=== PATIENT | female | born 1945 | race Caucasian/White ===

== ENCOUNTER 2017-04-09 17:11 | Observation (INO) | payer OTHER ==
[2017-04-09] MEDS ORDERED: DEMEROL INJ IVP ONE (17:42)
[2017-04-09] MEDS ORDERED: ZOFRAN INJ 4 MG VIAL IVP ONE (17:42)
--- NOTE | 2017-04-09 17:43 | DR.CP ---
HPI - Time Seen Time seen: 17:40 - PCP Primary Care Physician: geoffrey chandler - HPI Comment HPI Comment: PATIENT HAVE PRECORDIAL CHEST PRESSURE THAT STARTED AT 14:00PM TODAY. HISTORY CAD S/P STENT MAY THIS YEAR. - Complaint Chief Complaint Doctor Comments: CHEST PAIN TIMES FEW HOURS. Chief Complaint:: "chest pain since 2 today pt to took two asp and two nitro befor coming to the ER - Reviewed Nurses Notes Review: Yes - Source History Provided: Patient - Mode of Arrival Mode of Arrival: Ambulatory - Timing Onset of Chief Complaint: 04/09/17 Came on: Suddenly - Duration Duration: Constant Duration: Hours - Location Location of Chest Pain: Left, Chest - Context Onset: At rest Cardiac Risk Factors: None PE Risk Factors: None History of: Similar pain in the past, [place], Angina, Angioplasty, Aspirin in last 24 hours Prehospital Care: SL Nitro, ASA - Quality Quality: Heavy - Severity Severity: Moderate - Modifying Factors Worsens: Nothing Impoves: Nothing - Associated Signs and Symptoms Associated Signs and Symptoms: Shortness of Breath PMH - PMH Past Medical History: Yes Past Medical History: Anxiety, CHF, COPD, Coronary Artery Disease, Hypertension , [place] Past Surgical History: Yes Surgical History: Angioplasty/Stents, Cholecystectomy, 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, Hysterectomy , Ortho Surgery - Family History History of Family Medical Conditions: Yes Family Medical History: [place], Hypertension - Social History Does patient currently use any type of tobacco product: Yes Have you used tobacco products in the last 12 months: Yes Type of Tobacco Use: Cigarettes How many years tobacco product used: 20 Does any household member use tobacco: No Alcohol Use: None Do you use any recreational Drugs:: No Lives With: Family Lives Where: Home - infectious screening In the last 2 months have you had wt loss of >10#?: NO Have you had fever, night sweats or hemotysis?: No Have you traveled outside the country in the last 6 months?: No Isolation: Standard ROS - Review of Systems Constitutional: Weakness, Fatigue. negative: Chills, Fever Eyes: No Symptoms Reported. negative: Eye Pain, Discharge ENTM: No Symptoms Reported. negative: Ear Pain, Nose Discharge, Nose Congestion , Throat Pain Respiratoy: No Symptoms Reported, Short of Breath. negative: Productive Cough, Non-Productive Cough, Wheezing, Hemoptysis Cardiovascular: Chest Pain. negative: Edema Gastrointestinal/Abdominal: No Symptoms Reported. negative: Abdominal Pain, Diarrhea, Nausea, Vomiting Genitourinary: No Symptoms Reported. negative: Dysuria, Frequency, Hematuria Neurological: Weakness. negative: Headache, Dizziness Musculoskeletal: No Symptoms Reported Integumentary: No Symptoms Reported Hematologic/Lymphatic: Easy Bleeding, Easy Bruising Endocrine: No Symptoms Reported All Other Systems: Reviewed and Negative PE - Vitals Vitals: Temperature 98 F Pulse Rate [Apical] 57 Pulse Rate 62 Respiratory Rate 18 Blood Pressure [Left Arm] 140/65 Blood Pressure [Right Arm] 149/68 Blood Pressure 217/88 O2 Sat by Pulse Oximetry 100 - General Limitations: No Limitations General Appearance: Alert - Head Head Exam: Normal Inspection - Eyes Eye exam: Normal Appearance - ENT ENT Exam: Normal External Ear Exam - Chest Chest Inspection: Symmetric Chest Wall Rise - Respiratory Respiratory Exam: Normal Lung Sounds Bilat Respiratory Exam: Bilateral Rhonchi, Upper Rhonchi, Lower Rhonchi - Cardiovascular Cardiovascular Exam: Regular Rate, Normal Rhythm Pulse: Normal Edema: Normal - Abdominal Exam Abdominal Exam: Normal Inspection, Normal Bowel Sounds. negative: Tenderness - Extremities Extremities Exam: Normal Inspection - Back Back Exam: Normal Inspection - Neurologic Neurological Exam: Alert, Oriented X3, CN II-XII Intact, Normal Gait, Reflexes Normal. negative: Motor Sensory Deficit - Psychiatric Psychiatric Exam: Normal Affect, Normal Mood - Skin Skin Exam: Normal Color MDM - Additional Information Additional Information Obtained From: Family - Differential Diagnosis Differential Diagnosis: Angina, CHF, Esophageal Reflux/Spasm, Gastritis, Myocardial Infarction, Pericarditis, Pleuritis, Pancreatitis, Pneumonia, Pneumothorax Course - Treatment Treatment: SEE ORDERS. CHEST PAIN RESOLVED WITH IV PAIN MED. - Education/Counseling Education/Counseling: Patient, Family, Education Educated On: Treatment, Diagnosis, Needs for Follow Up ROR - Labs Reviewed Laboratory Results Reviewed?: Yes Result Diagrams: 04/10/17 04:55 04/10/17 04:55 Laboratory: WBC 3.8 X10^3/uL (3.6-10.0) 04/09/17 17:48 RBC 3.69 X10^6/uL (3.5-5.4) 04/09/17 17:48 Hgb 13.2 g/dL (12.0-16.0) 04/09/17 17:48 Hct 38.1 % (36.0-47.0) 04/09/17 17:48 MCV 103.2 fL (80.0-100.0) H 04/09/17 17:48 MCH 35.7 pg (27.0-34.0) H 04/09/17 17:48 MCHC 34.6 g/dL (33.0-35.0) 04/09/17 17:48 RDW 16.3 % (11.6-16.5) 04/09/17 17:48 Plt Count 145 X10^3/uL (150.0-450.0) L 04/09/17 17:48 MPV 10.5 fL (7.4-11.0) 04/09/17 17:48 Neut % 49.5 % (42.0-75.0) 04/09/17 17:48 Lymph % 39.5 % (21.0-51.0) 04/09/17 17:48 [place] % 6.3 % (0.0-13.0) 04/09/17 17:48 Eos % 3.9 % (0.9-2.9) H 04/09/17 17:48 Baso % 0.8 % (0.2-1.0) 04/09/17 17:48 Neut # 1.9 x10^3/uL (2.2-4.8) L 04/09/17 17:48 Lymph # 1.5 X10^3/uL (1.3-2.9) 04/09/17 17:48 [place] # 0.2 x10^3/uL (0.3-0.8) L 04/09/17 17:48 Eos # 0.1 x10^3/uL (0.0-0.2) 04/09/17 17:48 Baso # 0.0 X10^3/uL (0.0-0.1) 04/09/17 17:48 Absolute Nucleated RBC 0.0 /100WBC 04/09/17 17:48 INR Target Range - 04/09/17 17:48 INR 1.00 (0.8-1.3) 04/09/17 17:48 PTT 29.7 SECONDS (22.9-36.5) 04/09/17 17:48 PTT Comment - 04/09/17 17:48 Sodium 141 mmol/L (136-145) 04/09/17 17:48 Corrected Sodium TNP 04/09/17 17:48 Potassium 4.0 mmol/L (3.5-5.1) 04/09/17 17:48 Chloride 104 mmol/L (98-107) 04/09/17 17:48 Carbon Dioxide 30.2 mmol/L (21-32) 04/09/17 17:48 BUN 9 mg/dL (7-18) 04/09/17 17:48 Creatinine 1.44 mg/dL (0.55-1.02) H 04/09/17 17:48 Est GFR (MDRD) Af Amer 46 (>60) L 04/09/17 17:48 Est GFR (MDRD) Non-Af 38 (>60) L 04/09/17 17:48 Glucose 92 mg/dL (65-99) 04/09/17 17:48 Calcium 9.0 mg/dL (8.5-10.1) 04/09/17 17:48 Corrected Calcium 9.6 mg/dL (8.5-10.1) 04/09/17 17:48 Total Bilirubin 0.40 mg/dL (0.2-1.0) 04/09/17 17:48 AST 16 Units/L (15-37) 04/09/17 17:48 ALT 13 Units/L (12-78) 04/09/17 17:48 Alkaline Phosphatase 107 Units/L (46-116) 04/09/17 17:48 Creatine Kinase 36 Units/L (26-192) 04/09/17 17:48 CK-MB (CK-2) < 1.0 ng/mL (0-4.0) 04/09/17 17:48 CK/CKMB % Calc 2.8 % (<4) 04/09/17 17:48 Troponin I < 0.02 ng/mL (0-1.5) 04/09/17 17:48 B-Natriuretic Peptide 246 pg/mL (0-79) H 04/09/17 17:48 Total Protein 6.5 g/dL (6.4-8.2) 04/09/17 17:48 Albumin 3.2 g/dL (3.4-5.0) L 04/09/17 17:48 Globulin 3.3 g/dL (2.5-4.5) 04/09/17 17:48 Albumin/Globulin Ratio 1.0 Ratio (1.1-2.1) L 04/09/17 17:48 Specimen Type Clean catch urine 04/09/17 20: Urine Color Yellow (YELLOW) 04/09/17 20:23 Urine Appearance Clear (CLEAR) 04/09/17 20: Urine pH 6.0 (5.0 - 8.0) 04/09/17 20:23 Ur Specific [place] 1.010 (1.000-1.030) 04/09/17 20:23 Urine Protein Negative (NEGATIVE) 04/09/17 20: Urine Glucose (UA) Negative (NEGATIVE) 04/09/17 20: Urine Ketones Negative (NEGATIVE) 04/09/17 20: Urine Occult Blood Negative (NEGATIVE) 04/09/17 20: Urine Nitrite Negative (NEGATIVE) 04/09/17 20: Urine Bilirubin Negative (NEGATIVE) 04/09/17 20: Urine Urobilinogen Normal (NORMAL) 04/09/17 20: Ur Leukocyte Esterase 3+ (NEGATIVE) 04/09/17 20:23 Urine RBC 0-3 /HPF (NEGATIVE) 04/09/17 20:23 Urine WBC 8-12 /HPF (NEGATIVE) 04/09/17 20:23 Ur Squamous Epith Cells Few /HPF (NEGATIVE) 04/09/17 20: Urine Bacteria Trace /HPF (NEGATIVE) 04/09/17 20:23 Ur Culture Indicated? Yes/culture set up 04/09/17 20:23 - XRAY XRAY Interpreted by: Radiologist XRAY Findings: REPORT DISCUSS WITH PATIENT AND FAMILY. - EKG Rhythm: NSR (EKG NOTED.) - Diagnosis Discharge Problem: Chest pain Qualifiers: Chest pain type: precordial pain Qualified Code(s): R07.2 - Precordial pain Hypertension Qualifiers: Hypertension type: essential hypertension Qualified Code(s): I10 - Essential ( primary) hypertension - Discharge Plan Disposition: 09 ADMITTED INPATIENT Condition: Stable - Follow ups/Referrals - Instructions
[2017-04-09] MEDS ORDERED: ZOFRAN INJ 4 MG VIAL ONE (17:45)
[2017-04-09] MEDS ORDERED: DEMEROL INJ ONE (17:45)
[2017-04-09 18:08] LABS: BASOPHILS % (AUTO) 0.8 % (0.2-1.0); EOSINOPHILS # (AUTO) 0.1 x10^3/uL (0.0-0.2); EOSINOPHILS % (AUTO) 3.9 % (0.9-2.9); HEMATOCRIT 38.1 % (36.0-47.0); HEMOGLOBIN 13.2 g/dL (12.0-16.0); LYMPHOCYTES # (AUTO) 1.5 X10^3/uL (1.3-2.9); LYMPHOCYTES % (AUTO) 39.5 % (21.0-51.0); MEAN CORPUSCULAR HEMOGLOBIN 35.7 pg (27.0-34.0); MEAN CORPUSCULAR HGB CONC 34.6 g/dL (33.0-35.0); MEAN CORPUSCULAR VOLUME 103.2 fL (80.0-100.0); MEAN PLATELET VOLUME 10.5 fL (7.4-11.0); MONOCYTES # (AUTO) 0.2 x10^3/uL (0.3-0.8); MONOCYTES % (AUTO) 6.3 % (0.0-13.0); NEUTROPHILS # (AUTO) 1.9 x10^3/uL (2.2-4.8); NEUTROPHILS % (AUTO) 49.5 % (42.0-75.0); PLATELET COUNT 145 X10^3/uL (150.0-450.0); RED BLOOD COUNT 3.69 X10^6/uL (3.5-5.4); RED CELL DISTRIBUTION WIDTH 16.3 % (11.6-16.5); WHITE BLOOD COUNT 3.8 X10^3/uL (3.6-10.0)
[2017-04-09 18:18] LABS: BLOOD UREA NITROGEN 9 mg/dL (7-18); CARBON DIOXIDE 30.2 mmol/L (21-32); CHLORIDE 104 mmol/L (98-107); CREATININE 1.44 mg/dL (0.55-1.02); SODIUM 141 mmol/L (136-145); TROPONIN I < 0.02 ng/mL (0-1.5); eGFR BLACK RACES 46 (>60); eGFR NON BLACK RACES 38 (>60)
--- NOTE | 2017-04-09 18:20 | RAD ---
Chest, one view Indication: Chest pain Comparison: 03/08/2016 Findings: The heart size is normal. The lungs are clear without focal infiltrate or large effusion. Impression: No acute chest process or significant change from prior. Reported By:
[2017-04-09 18:22] LABS: ALANINE AMINOTRANSFERASE 13 Units/L (12-78); ALBUMIN 3.2 g/dL (3.4-5.0); ALKALINE PHOSPHATASE 107 Units/L (46-116); ASPARTATE AMINO TRANSFERASE 16 Units/L (15-37); CKMB % 2.8 % (<4); COR CA(FOR HYPOALB) 9.6 mg/dL (8.5-10.1); CREATINE KINASE 36 Units/L (26-192); CREATINE KINASE MB < 1.0 ng/mL (0-4.0); TOTAL PROTEIN 6.5 g/dL (6.4-8.2)
[2017-04-09 18:24] LABS: B-TYPE NATRIURETIC PEPTIDE 246 pg/mL (0-79)
[2017-04-09] MEDS ORDERED: NITROSTAT SL PRN ×2 (18:48→21:34)
[2017-04-09] MEDS: NS 1000 ML 1,000 ML IV SCH (19:21)
[2017-04-09] MEDS: PEPCID 20 MG IV PREMIX* 20 MG/50 ML BAG IV SCH ×2 (19:22→20:00)
[2017-04-09 20:31] LABS: BILIRUBIN,URINE NEGATIVE (NEGATIVE); BLOOD/HEMOGLOBIN,URINE NEGATIVE (NEGATIVE); GLUCOSE, URINE NEGATIVE (NEGATIVE); KETONES,URINE NEGATIVE (NEGATIVE); LEUKOCYTE ESTERASE ,URINE 3+ (NEGATIVE); NITRITES,URINE NEGATIVE (NEGATIVE); PROTEIN,URINE NEGATIVE (NEGATIVE); UROBILINOGEN,URINE NORMAL (NORMAL)
[2017-04-09 20:39] LABS: APPEARANCE,URINE CLEAR (CLEAR); BACTERIA,URINE TRACE /HPF (NEGATIVE); COLOR,URINE YELLOW (YELLOW); RBC,URINE 0-3 /HPF (NEGATIVE); SQUAMOUS EPITHELIAL CELL,UR FEW /HPF (NEGATIVE)
[2017-04-09] MEDS: NICOTINE PATCH TD SCH (21:01)
[2017-04-09 21:31] VITALS: BMI 23.9
[2017-04-09] MEDS ORDERED: ALPRAZOLAM 0.5 MG PO PRN (21:34)
[2017-04-09] MEDS ORDERED: XANAX PO PRN (21:44)
[2017-04-09] MEDS ORDERED: ZESTRIL TAB 20 MG ONE (22:02)
[2017-04-09] MEDS: LINZESS PO SCH (22:04)
[2017-04-09] MEDS: COREG TAB 12.5 MG PO SCH (22:04)
[2017-04-09] MEDS: ZESTRIL TAB 20 MG PO SCH (22:04)
[2017-04-09] MEDS: TYLENOL 325 MG TAB PO PRN (23:37)
[2017-04-09 23:55] LABS: CKMB % 2.6 % (<4); CREATINE KINASE 39 Units/L (26-192); CREATINE KINASE MB < 1.0 ng/mL (0-4.0); TROPONIN I < 0.02 ng/mL (0-1.5)
[2017-04-10 05:23] LABS: BASOPHILS % (AUTO) 1.1 % (0.2-1.0); EOSINOPHILS # (AUTO) 0.1 x10^3/uL (0.0-0.2); EOSINOPHILS % (AUTO) 3.5 % (0.9-2.9); HEMATOCRIT 35.2 % (36.0-47.0); LYMPHOCYTES # (AUTO) 1.5 X10^3/uL (1.3-2.9); LYMPHOCYTES % (AUTO) 40.9 % (21.0-51.0); MEAN CORPUSCULAR HEMOGLOBIN 35.4 pg (27.0-34.0); MEAN CORPUSCULAR HGB CONC 34.1 g/dL (33.0-35.0); MEAN CORPUSCULAR VOLUME 103.9 fL (80.0-100.0); MEAN PLATELET VOLUME 10.5 fL (7.4-11.0); MONOCYTES # (AUTO) 0.3 x10^3/uL (0.3-0.8); MONOCYTES % (AUTO) 7.6 % (0.0-13.0); NEUTROPHILS # (AUTO) 1.7 x10^3/uL (2.2-4.8); NEUTROPHILS % (AUTO) 46.9 % (42.0-75.0); PLATELET COUNT 121 X10^3/uL (150.0-450.0); RED BLOOD COUNT 3.39 X10^6/uL (3.5-5.4); RED CELL DISTRIBUTION WIDTH 16.2 % (11.6-16.5); WHITE BLOOD COUNT 3.6 X10^3/uL (3.6-10.0)
[2017-04-10 05:46] LABS: CKMB % 2.9 % (<4); CREATINE KINASE 35 Units/L (26-192); CREATINE KINASE MB < 1.0 ng/mL (0-4.0); TROPONIN I 0.03 ng/mL (0-1.5)
[2017-04-10] MEDS: TYLENOL 325 MG TAB PO PRN (05:46)
[2017-04-10 05:50] LABS: ALANINE AMINOTRANSFERASE 10 Units/L (12-78); ALBUMIN 2.8 g/dL (3.4-5.0); ALKALINE PHOSPHATASE 96 Units/L (46-116); ASPARTATE AMINO TRANSFERASE 16 Units/L (15-37); BLOOD UREA NITROGEN 11 mg/dL (7-18); CARBON DIOXIDE 28.5 mmol/L (21-32); CHLORIDE 107 mmol/L (98-107); CHOL/HDL RATIO 4.7 (0.0-5.0); CHOLESTEROL 194 mg/dL (0-200); CREATININE 1.41 mg/dL (0.55-1.02); HDL CHOLESTEROL 41 mg/dL (40-60); MAGNESIUM 1.9 mg/dL (1.7-2.9); SODIUM 140 mmol/L (136-145); TRIGLYCERIDES 115 mg/dL (0-150); eGFR BLACK RACES 47 (>60); eGFR NON BLACK RACES 39 (>60)
[2017-04-10] MEDS ORDERED: LEXAPRO ONE (07:54)
[2017-04-10] MEDS ORDERED: ZESTRIL TAB 20 MG ONE (07:54)
[2017-04-10] MEDS: NS 1000 ML 1,000 ML IV SCH (08:32)
[2017-04-10] MEDS: LINZESS PO SCH (08:39)
[2017-04-10] MEDS: NICOTINE PATCH TD SCH (08:39)
[2017-04-10] MEDS: PEPCID 20 MG IV PREMIX* 20 MG/50 ML BAG IV SCH (08:39)
[2017-04-10] MEDS: ZESTRIL TAB 20 MG PO SCH (08:39)
[2017-04-10] MEDS ORDERED: NORCO 5/325 MG TAB PO ONE (08:48)
[2017-04-10] MEDS: COREG TAB 12.5 MG PO SCH (08:49)
[2017-04-10] MEDS ORDERED: PATIENT'S HOME MEDICATION (Escitalopram Oxalate [Escitalopram Oxalate] 20 MG) PO SCH (09:00)
[2017-04-10] MEDS ORDERED: LEXAPRO PO SCH (09:00)
[2017-04-10] MEDS ORDERED: ASPIRIN EC 81 MG PO SCH (09:00)
[2017-04-10] MEDS ORDERED: PROTONIX INJ 40 MG VIAL IVP SCH (10:00)
[2017-04-10 12:17] LABS: CKMB % 3.3 % (<4); CREATINE KINASE 30 Units/L (26-192); CREATINE KINASE MB < 1.0 ng/mL (0-4.0); TROPONIN I 0.03 ng/mL (0-1.5)
[2017-04-10] MEDS ORDERED: LEVSIN/MAALOX/LIDOC VISC PO ONE (12:31)
[2017-04-10 13:03] VITALS: BP 152/79
--- NOTE | 2017-04-10 13:31 | DR.H&P ---
H&P - History & Physical for Day of: H&P Date: 04/09/17 - Chief Complaint Chief Complaint: CHEST PAIN - Allergies Allergies/Adverse Reactions: Allergies Allergy/AdvReac Type Severity Reaction Status Date / Time codeine Allergy Verified 04/09/17 18:37 diphenhydramine Allergy Verified 04/09/17 18:37 [From Benadryl] ibuprofen Allergy Verified 04/09/17 18:37 morphine Allergy Verified 04/09/17 18:37 Penicillins Allergy Verified 04/09/17 18:37 promethazine [From Phenergan] Allergy Verified 04/09/17 18:37 - History of Present Illness History of Present Illness: patient is a 71-year-old white female who was admitted from the emergency room after presenting with complaints of chest pain. Patient stated chest pain started while at rest. Patient states she took nitroglycerin sublingual chest. Patient has a history of coronary artery disease patient believes last heart catheter was in 2013 patient states she has 5 stents. Patient also has a history of carotid artery disease with a history of endarterectomy approximately a year and a half ago. Patient has a history of COPD and is currently a smoker as well as hypertension. 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, Hysterectomy , Ortho Surgery - Family History Family Medical History: [place], Hypertension - Social History Does patient currently use any type of tobacco product: Yes Have you used tobacco products in the last 12 months: Yes Type of Tobacco Use: Cigarettes How many years tobacco product used: 20 Does any household member use tobacco: No Alcohol Use: None Drug Use: None - Medications Home Medications: Alprazolam [Xanax 1 mg] 0.5 mg PO BID PRN 04/09/17 [History Confirmed 04/09/17] Escitalopram Oxalate 20 mg PO DAILY 04/09/17 [History Confirmed 04/09/17] Levothyroxine Sodium 75 mcg PO DAILY 04/09/17 [History Confirmed 04/09/17] Linaclotide [Linzess] 145 mg PO DAILY 04/09/17 [History Confirmed 04/09/17] Nitroglycerin Sublingual [NITROSTAT SUBLING TAB 0.4 MG *] 0.4 mg SL PRN PRN [History Confirmed 04/09/17] Ranitidine HCl [Heartburn Relief] 150 mg PO HS 04/09/17 [History Confirmed 04/09] - Review of Systems Constitutional: Weakness Eyes: No Symptoms Reported ENT: No Symptoms Reported Respiratory: Shortness of Breath, SOB with Excertion Cardiovascular: Chest Pain Gastrointestinal: Nausea Genitourinary: No Symptoms Reported Musculoskeletal: Back Pain Skin: No Symptoms Reported Neurological: Weakness - Physical Exam Vital Signs: Temperature 97.9 F Pulse Rate [Apical] 54 Pulse Rate 62 Respiratory Rate 18 Blood Pressure [Left Arm] 152/79 Blood Pressure [Right Arm] 131/62 Blood Pressure 217/88 O2 Sat by Pulse Oximetry 96 Oriented: Normal Eyes: Normal Ear: Normal Nose: Normal Throat: Normal Respiratory: RLL Diminished, LLL Diminished Cardiovascular: Normal : Normal Auscultation: Bowel Sounds: Normal Palpation: Normal Tenderness: Normal Skin: Normal Musculoskeletal: Back:Lumbar Psychiatric: Anxiety Affect: Anxious Speech Pattern: Clear, Appropriate - Assessment/Plan (1) Chest pain Qualifiers: Chest pain type: precordial pain Qualified Code(s): R07.2 - Precordial pain Status: Acute Plan: ADMIT, SERIAL CE, SERIAL EKG'S CXR ON ADMISSION. BP AND LIPID CONTROL, SUPPLEMENTAL O2. CONTINOUS CARDIAC MONITORING. RESUME HOME MEDICATION (2) Hypertension Qualifiers: Hypertension type: essential hypertension Qualified Code(s): I10 - Essential (primary) hypertension Status: Acute (3) Dizziness Status: Acute (4) CAD (coronary artery disease) Status: Chronic (5) Esophageal reflux Status: Chronic (6) Essential hypertension, benign Status: Chronic (7) TATI (generalized anxiety disorder) Status: Chronic
[2017-04-10] MEDS ORDERED: SYNTHROID 75 mcg TAB PO SCH (16:30)
[2017-04-10] MEDS ORDERED: ZANTAC PO SCH (21:00)
== END 2017-04-10 15:25 | disposition short-term general hospital (02) ==
LOC: ER 17:11 → MED/SURG 19:05
PROVIDERS: ADMIT Obstetrics & Gynecology Obstetrics; ATTEND Internal Medicine
DX: R07.2 Precordial pain (principal); J44.9 Chronic obstructive pulmonary disease, unspecified; I25.10 Atherosclerotic heart disease of native coronary artery without angina pectoris; I10 Essential (primary) hypertension; F41.8 Other specified anxiety disorders; R06.02 Shortness of breath; R42 Dizziness and giddiness; K21.9 Gastro-esophageal reflux disease without esophagitis; R94.31 Abnormal electrocardiogram [ECG] [EKG]; Z79.899 Other long term (current) drug therapy
CPT/HCPCS: 36415; 71010; 80053; 80061; 81001; 82550; 82553; 83735; 83880; 84484; 85025; 85378; 85610; 85730; 87086; 93005; 93010; 94760; 96365; 96374; 96375; 99284; A4222; C9113; S0028; G0378; J2175; J2405

== ENCOUNTER 2019-12-24 14:32 | Inpatient (IN) ==
[2019-12-24 15:25] LABS: BILIRUBIN,URINE NEGATIVE (NEGATIVE); BLOOD/HEMOGLOBIN,URINE 4+ (NEGATIVE); GLUCOSE, URINE NEGATIVE (NEGATIVE); KETONES,URINE NEGATIVE (NEGATIVE); LEUKOCYTE ESTERASE ,URINE 3+ (NEGATIVE); NITRITES,URINE NEGATIVE (NEGATIVE); PROTEIN,URINE 3+ (NEGATIVE); UROBILINOGEN,URINE 1+ (NORMAL)
[2019-12-24 15:39] LABS: APPEARANCE,URINE SLIGHTLY HAZY (CLEAR); COLOR,URINE YELLOW (YELLOW)
[2019-12-24 15:40] LABS: BACTERIA,URINE 1+ /HPF (NEGATIVE); SQUAMOUS EPITHELIAL CELL,UR NEGATIVE /HPF (NEGATIVE)
--- NOTE | 2019-12-24 15:41 | DR.DIZZY ---
HPI Time seen Time Seen by Provider: 12/24/19 15:00 Complaint Chief Complaint Doctor Comments: complaint of having fever and uti. Has been in bed for 2 days with reported stool in bed. Source History Provided: Patient and EMS Mode of Arrival Mode of Arrival: Stretcher Timing Onset of Chief Complaint: 12/22/19 Onset of Symptoms Start Date: 12/22/19 Duration Duration: Constant How lon Duration: Days Location of Weakness Weakness Location: Generalized Context Onset: At rest History of: None Stroke Symptoms: None Severity Severity: Bedridden Modifying factors Worsens: Nothing Associated signs and symptoms Associated Signs and Symptoms: Weak, Fever and Nausea PMH PMH Past Medical History: Anxiety, CHF, COPD, Coronary Artery Disease, Hypertension and [place] Past Surgical History: Yes Surgical History: Angioplasty/Stents, Cholecystectomy, 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, Hysterectomy and Ortho Surgery Family History Family Medical History: [place] and Hypertension Social History Do you use any recreational Drugs:: No ROS Review of Systems Constitutional: Fever Eyes: No Symptoms Reported and Eye Pain ENTM: No Symptoms Reported Respiratoy: No Symptoms Reported Cardiovascular: No Symptoms Reported Gastrointestinal/Abdominal: Vomiting Genitourinary: Dysuria Neurological: No Symptoms Reported Musculoskeletal: No Symptoms Reported Integumentary: No Symptoms Reported Hematologic/Lymphatic: No Symptoms Reported Endocrine: No Symptoms Reported Psychiatric: No Symptoms Reported All Other Systems: Reviewed and Negative PE Vital Signs Vitals: Temperature 98.8 F Pulse Rate 72 Respiratory Rate 16 Blood Pressure [Left Arm] 152/79 Blood Pressure [Right Arm] 131/62 Blood Pressure 94/55 O2 Sat by Pulse Oximetry 98 General Limitations: No Limitations General Appearance: Alert and In No Apparent Distress Head Head Exam: Normal Inspection, Atraumatic and Normocephalic Eyes Eye exam: Normal Appearance and EOMI ENT ENT Exam: Mucous Membranes Dry Neck Neck Exam: Normal Inspection, Full ROM and Trachea Midline Chest Chest Inspection: Normal Inspection Respiratory Respiratory Exam: Normal Lung Sounds Bilat; negative Respiratory Distress Respiratory Exam: Bilateral: Clear to Auscultation Cardiovascular Cardiovascular Exam: Regular Rate Abdominal Exam Abdominal Exam: Normal Inspection, Normal Bowel Sounds and Soft; negative Distention and Guarding Rectal Rectal Exam: Deferred Extremeties Extremities Exam: Normal Inspection and Full ROM Back Back Exam: Normal Inspection Neurologic Neurological Exam: Alert, Oriented X3 and CN II-XII Intact Patient Oriented To: Person, Place and Time Psychiatric Psychiatric Exam: Depressed Skin Skin Exam: Normal Color COURSE Consultation Called: 16:31 Call Returned: 16:39 Consultation Comments: case discussed with DR. Genao admit Urosepsis ROR Labs Reviewed Result Diagrams: 12/24/19 15:40 12/24/19 15:40 Laboratory: WBC 11.5 X10^3/uL (3.6-10.0) H 12/24/19 15:40 RBC 3.37 X10^6/uL (3.5-5.4) L 12/24/19 15:40 Hgb 13.6 g/dL (12.0-16.0) 12/24/19 15:40 Hct 39.1 % (36.0-47.0) 12/24/19 15:40 MCV 116.3 fL (80.0-100.0) H 12/24/19 15:40 MCH 40.4 pg (27.0-34.0) H 12/24/19 15:40 MCHC 34.8 g/dL (33.0-35.0) 12/24/19 15:40 RDW 14.3 % (11.6-16.5) 12/24/19 15:40 Plt Count 107 X10^3/uL (150.0-450.0) L 12/24/19 15:40 Plt Count Comment Decreased (ADEQUATE) A 12/24/19 15:40 MPV 11.1 fL (7.4-11.0) H 12/24/19 15:40 Neut % (Auto) 91.8 % (42.0-75.0) H 12/24/19 15:40 Lymph % (Auto) 5.0 % (21.0-51.0) L 12/24/19 15:40 [place] % (Auto) 3.0 % (0.0-13.0) 12/24/19 15:40 Eos % (Auto) 0.0 % (0.9-2.9) L 12/24/19 15:40 Baso % (Auto) 0.2 % (0.2-1.0) 12/24/19 15:40 Neut # (Auto) 10.6 x10^3/uL (2.2-4.8) H 12/24/19 15:40 Lymph # (Auto) 0.6 X10^3/uL (1.3-2.9) L 12/24/19 15:40 [place] # (Auto) 0.3 x10^3/uL (0.3-0.8) 12/24/19 15:40 Eos # (Auto) 0.0 x10^3/uL (0.0-0.2) 12/24/19 15:40 Baso # (Auto) 0.0 X10^3/uL (0.0-0.1) 12/24/19 15:40 Absolute Nucleated RBC 0.0 /100WBC 12/24/19 15:40 Total Counted 100 12/24/19 15:40 Neutrophils % (Manual) 82 % (39-76) H 12/24/19 15:40 Band Neutrophils % 6 % (0-10) 12/24/19 15:40 Lymphocytes % (Manual) 8 % (13-43) L 12/24/19 15:40 Monocytes % (Manual) 4 % (4-9) 12/24/19 15:40 Plt Morphology Comment Normal (NORMAL) 12/24/19 15:40 RBC Morphology Abnormal (NORMAL) A 12/24/19 15:40 Macrocytosis 3+ A 12/24/19 15:40 PT 13.0 SECONDS (11.8-14.3) 12/24/19 15:40 INR Target Range - 12/24/19 15:40 INR 1.01 (0.8-1.3) 12/24/19 15:40 Sodium 133 mmol/L (136-145) L 12/24/19 15:40 Corrected Sodium TNP 12/24/19 15:40 Potassium 2.7 mmol/L (3.5-5.1) L* 12/24/19 15:40 Chloride 92 mmol/L (98-107) L 12/24/19 15:40 Carbon Dioxide 29.7 mmol/L (21-32) 12/24/19 15:40 BUN 28 mg/dL (7-18) H 12/24/19 15:40 Creatinine 2.46 mg/dL (0.55-1.02) H 12/24/19 15:40 Est GFR (MDRD) Af Amer 25 (>60) L 12/24/19 15:40 Est GFR (MDRD) Non-Af 20 (>60) L 12/24/19 15:40 Glucose 100 mg/dL (65-99) H 12/24/19 15:40 Lactic Acid 2.9 mmol/L (0.4-2.0) H 12/24/19 15:40 Calcium 9.9 mg/dL (8.5-10.1) 12/24/19 15:40 Corrected Calcium TNP 12/24/19 15:40 Total Bilirubin 1.40 mg/dL (0.2-1.0) H 12/24/19 15:40 AST 19 Units/L (15-37) 12/24/19 15:40 ALT 12 Units/L (12-78) 12/24/19 15:40 Alkaline Phosphatase 112 Units/L (46-116) 12/24/19 15:40 Total Protein 7.1 g/dL (6.4-8.2) 12/24/19 15:40 Albumin 3.4 g/dL (3.4-5.0) 12/24/19 15:40 Globulin 3.7 g/dL (2.5-4.5) 12/24/19 15:40 Albumin/Globulin Ratio 0.9 Ratio (1.1-2.1) L 12/24/19 15:40 Lipase 46 Units/L (73-393) L 12/24/19 15:40 Specimen Type Catherized urine 12/24/19 15:10 Urine Color Yellow (YELLOW) 12/24/19 15:10 Urine Appearance Slightly hazy (CLEAR) 12/24/19 15:10 Urine pH 5.0 (5.0 - 8.0) 12/24/19 15:10 Ur Specific [place] 1.015 (1.000-1.030) 12/24/19 15:10 Urine Protein 3+ (NEGATIVE) 12/24/19 15:10 Urine Glucose (UA) Negative (NEGATIVE) 12/24/19 15:10 Urine Ketones Negative (NEGATIVE) 12/24/19 15:10 Urine Occult Blood 4+ (NEGATIVE) 12/24/19 15:10 Urine Nitrite Negative (NEGATIVE) 12/24/19 15:10 Urine Bilirubin Negative (NEGATIVE) 12/24/19 15:10 Urine Urobilinogen 1+ (NORMAL) 12/24/19 15:10 Ur Leukocyte Esterase 3+ (NEGATIVE) 12/24/19 15:10 Urine RBC 5-10 /HPF (0-3) A 12/24/19 15:10 Urine WBC Tntc /HPF (0-5) A 12/24/19 15:10 Ur Squamous Epith Cells Negative /HPF (NEGATIVE) 12/24/19 15:10 Urine Bacteria 1+ /HPF (NEGATIVE) 12/24/19 15:10 Ur Culture Indicated? Yes/culture set up 12/24/19 15:10 Opioid Opioid Risk Tool Age (Savage box if 16-45): No History of Preadolescent Sexual Abuse: No Total: 0 Total Score Risk Category: Low Risk Copyright: Davie CASTELLANO predicting aberrant behaviors
[2019-12-24] MEDS ORDERED: NS 1000 ML 1,000 ML IV SCH (16:00)
[2019-12-24 16:03] LABS: BLOOD UREA NITROGEN 28 mg/dL (7-18); CALCIUM 9.9 mg/dL (8.5-10.1); CARBON DIOXIDE 29.7 mmol/L (21-32); CHLORIDE 92 mmol/L (98-107); CREATININE 2.46 mg/dL (0.55-1.02); SODIUM 133 mmol/L (136-145); eGFR NON BLACK RACES 20 (>60)
[2019-12-24 16:07] LABS: ALANINE AMINOTRANSFERASE 12 Units/L (12-78); ALBUMIN 3.4 g/dL (3.4-5.0); ALKALINE PHOSPHATASE 112 Units/L (46-116); ASPARTATE AMINO TRANSFERASE 19 Units/L (15-37); LIPASE 46 Units/L (73-393); TOTAL PROTEIN 7.1 g/dL (6.4-8.2)
[2019-12-24] MEDS ORDERED: NS + KCL 20 MEQ/L 1,000 ML IV ONE ×2 (16:10→16:23)
[2019-12-24 16:11] LABS: BASOPHILS % (AUTO) 0.2 % (0.2-1.0); HEMATOCRIT 39.1 % (36.0-47.0); HEMOGLOBIN 13.6 g/dL (12.0-16.0); LACTIC ACID 2.9 mmol/L (0.4-2.0); LYMPHOCYTES # (AUTO) 0.6 X10^3/uL (1.3-2.9); MEAN CORPUSCULAR HEMOGLOBIN 40.4 pg (27.0-34.0); MEAN CORPUSCULAR HGB CONC 34.8 g/dL (33.0-35.0); MEAN CORPUSCULAR VOLUME 116.3 fL (80.0-100.0); MEAN PLATELET VOLUME 11.1 fL (7.4-11.0); MONOCYTES # (AUTO) 0.3 x10^3/uL (0.3-0.8); NEUTROPHILS # (AUTO) 10.6 x10^3/uL (2.2-4.8); NEUTROPHILS % (AUTO) 91.8 % (42.0-75.0); PLATELET COUNT 107 X10^3/uL (150.0-450.0); RED BLOOD COUNT 3.37 X10^6/uL (3.5-5.4); RED CELL DISTRIBUTION WIDTH 14.3 % (11.6-16.5); WHITE BLOOD COUNT 11.5 X10^3/uL (3.6-10.0)
[2019-12-24 16:25] LABS: BAND NEUTROPHILS % 6 % (0-10); PLATELET MORPHOLOGY COMMENT NORMAL (NORMAL)
--- NOTE | 2019-12-24 16:26 | RAD ---
HISTORYSEPSISSTUDYCHEST, 1 VIEWCOMPARISONFINDINGSThe trachea is midline. The cardiac silhouette is unremarkable . The lungs are clear without focal infiltrate or effusion. The bony thorax is unremarkable.IMPRESSIONNo acute cardiopulmonary disease.Electronically signed by: ZAIDA BERTRAND (Dec 24, 2019 16:24:27)
[2019-12-24] MEDS ORDERED: LEVAQUIN PREMIX IV 500 MG 500 MG/100 ML BAG IV ONE (16:37)
[2019-12-24] MEDS: LEVAQUIN PREMIX IV 500 MG 500 MG/100 ML BAG IV SCH (16:59)
[2019-12-24] MEDS ORDERED: K-RIDER 10 MEQ/NS 100 ML 10 MEQ/100 ML BAG IV PRN (19:56)
[2019-12-24] MEDS ORDERED: POTASSIUM CHLORIDE LIQ 20 MEQ UDC PO PRN (19:56)
[2019-12-24] MEDS ORDERED: K-DUR TAB 20 MEQ PO PRN (19:56)
[2019-12-24] MEDS ORDERED: KLOR-CON PO PRN (19:56)
[2019-12-24] MEDS ORDERED: POTASSIUM CHL 60 MEQ/NS 0.45% 500 ML IV PRN (19:56)
[2019-12-24] MEDS ORDERED: POTASSIUM CHL 40 MEQ/NS 0.45% 500 ML IV PRN (19:56)
[2019-12-24] MEDS ORDERED: MICRO K EXTEN CAP 10 MEQ PO PRN (19:56)
[2019-12-24] MEDS ORDERED: MAGNESIUM SULFATE 1 GRAM/100 mL PREMIX 1 GM/100 ML BAG IV PRN (20:12)
[2019-12-24 21:04] VITALS: BMI 22.1
[2019-12-24] MEDS ORDERED: NITROSTAT SL PRN (21:11)
[2019-12-24] MEDS ORDERED: MAGNESIUM SULFATE 1 GRAM/100 mL PREMIX 1 G/100 ML BAG IV ONE ×2 (22:38→22:54)
[2019-12-24] MEDS: NS 1000 ML 1,000 ML IV SCH (23:24)
[2019-12-25] MEDS: XANAX PO PRN (01:00)
[2019-12-25] MEDS: NS 1000 ML 1,000 ML IV SCH ×4 (05:56→18:01)
[2019-12-25] MEDS: SYNTHROID 75 mcg TAB PO SCH (05:56)
[2019-12-25 06:21] LABS: BASOPHILS % (AUTO) 0.4 % (0.2-1.0); HEMATOCRIT 32.3 % (36.0-47.0); HEMOGLOBIN 11.5 g/dL (12.0-16.0); LYMPHOCYTES # (AUTO) 0.5 X10^3/uL (1.3-2.9); LYMPHOCYTES % (AUTO) 4.8 % (21.0-51.0); MEAN CORPUSCULAR HGB CONC 35.7 g/dL (33.0-35.0); MEAN CORPUSCULAR VOLUME 114.8 fL (80.0-100.0); MEAN PLATELET VOLUME 10.8 fL (7.4-11.0); MONOCYTES # (AUTO) 0.4 x10^3/uL (0.3-0.8); NEUTROPHILS # (AUTO) 9.5 x10^3/uL (2.2-4.8); NEUTROPHILS % (AUTO) 90.8 % (42.0-75.0); PLATELET COUNT 69 X10^3/uL (150.0-450.0); RED BLOOD COUNT 2.81 X10^6/uL (3.5-5.4); WHITE BLOOD COUNT 10.4 X10^3/uL (3.6-10.0)
[2019-12-25 06:40] LABS: PLATELET MORPHOLOGY COMMENT NORMAL (NORMAL)
[2019-12-25 06:41] LABS: BAND NEUTROPHILS % 2 % (0-10)
[2019-12-25 06:45] LABS: ALBUMIN 2.5 g/dL (3.4-5.0); CALCIUM 8.8 mg/dL (8.5-10.1); CARBON DIOXIDE 25.4 mmol/L (21-32); CREATININE 1.93 mg/dL (0.55-1.02); MAGNESIUM 2.2 mg/dL (1.7-2.9); TOTAL PROTEIN 5.5 g/dL (6.4-8.2)
[2019-12-25] MEDS ORDERED: K-DUR TAB 20 MEQ PO ONE (08:37)
[2019-12-25] MEDS ORDERED: PATIENT'S HOME MEDICATION (Escitalopram Oxalate 20 MG) PO SCH (09:00)
[2019-12-25] MEDS ORDERED: NEURONTIN CAP 300 MG PO PRN (09:17)
[2019-12-25] MEDS ORDERED: LEXAPRO ONE (09:40)
[2019-12-25] MEDS: LINZESS PO SCH (09:54)
[2019-12-25] MEDS: LEVAQUIN PREMIX IV 500 MG 500 MG/100 ML BAG IV SCH (09:54)
[2019-12-25] MEDS: LEXAPRO PO SCH (09:54)
[2019-12-25] MEDS: FORTAZ or TAZICEF VIAL INJ 1 G in NS 100 ML IV + SPIKE MINIBAG* 100 ML IV SCH ×2 (11:20→20:29)
[2019-12-25] MEDS ORDERED: ZOFRAN INJ 4 MG VIAL IVP PRN (11:48)
[2019-12-25] MEDS: TYLENOL 325 MG TAB PO PRN (16:40)
[2019-12-25] MEDS: NS + KCL 20 MEQ/L 1,000 ML IV SCH (20:29)
--- NOTE | 2019-12-25 22:20 | DR.H&P ---
H&P - History & Physical for Day of: H&P Date: 12/24/19 - Chief Complaint Chief Complaint: ABDOMINAL PAIN, NAUSEA, VOMITING, FEVER, INCONTINENCE - History of Present Illness History of Present Illness: IS A 74 YEAR OLD PATIENT OF OURS WHO PRESENTED TO THE ER WITH COMPLAINTS OF FEVER AND LOWER ABDOMINAL PAIN. SHE REPORTS THAT SHE BELIEVES THAT SHE HAS A URINARY TRACT INFECTION AND HAS ALSO BEEN VOMITING. FAMILY REPORTS THAT SHE HAS BEEN INCONTINENT AT HOME AND HAS BEEN BED RIDDEN. SYMPTOMS REPORTEDLY STARTED TWO DAYS PRIOR. HER PMH INCLUDES: ANXIETY, CHF, COPD, CAD, HTN, AND [place]. ON ARRIVAL TO THE ER, VITALS WERE 98.8-72-16-98%-94/55. LABS WERE OBTAINED. ABNORMAL LAB VALUES INCLUDE THE FOLLOWING: WBC 11.5, RBC 3.37, PLT COUNT 107, SODIUM 133, POTASSIUM 2.7, CHLORIDE 92, BUN 28, CREATININE 2.46, GLUCOSE 100, LACTIC ACID 2.9, TOTAL BILI 1.40, LIPASE 46. A URINALYSIS WAS OBTAINED AND REVEALED: WBC TNTC, RBC 5-10, LEUKOCYTES 3+, BACTERIA 1+, OCCULT BLOOD 4+, PROTEIN 3+. COVID-19 NEGATIVE. BLOOD AND URINE CULTURES WERE SET UP. A CHEST XRAY WAS OBTAINED AND REVEALED NO ACUTE CARDIOPULMONARY DISEASE. SHE WAS GIVEN NORMAL SALINE 1 LITER WITH 20MEQ KCL AT 250 ML/HR X 1, MAGNESIUM SULFATE 1G IV X 2 IN THE ER. SHE WAS ADMITTED FO R FURTHER EVALUATION AND TREATMENT OF UROSEPSIS, DEHYDRATION, AND HYPOKALEMIA. SHE WAS STARTED ON NS WITH 20MEQ KCL AT 125ML/HR, LEVAQUIN 500MG IV DAILY, FORTAZ 1G IV Q12H, ZOFRAN 4MG IV Q4H PRN, AND HOME MEDICATIONS OF XANAX, GABAPENTIN, LEXAPRO, SYNTHROID, WERE RESUMED. OTHERWISE, WE PLAN TO FOLLOW UP WITH AM LABS AND CONTINUE TO MONITOR. 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, Hysterectomy, Ortho Surgery - Family History Family Medical History: [place], Hypertension - Social History Does patient currently use any type of tobacco product: No Does any household member use tobacco: No Alcohol Use: None Drug Use: None - Medications Home Medications: codeine Allergy (Verified 05/20/18 12:30) diphenhydramine [From Benadryl] Allergy (Verified 05/20/18 12:30) ibuprofen Allergy (Verified 05/20/18 12:30) morphine Allergy (Verified 05/20/18 12:30) Penicillins Allergy (Verified 05/20/18 12:30) promethazine [From Phenergan] Allergy (Verified 05/20/18 12:30) CONTINUE taking the following medications chlorthalidone 25 mg PO DAILY 12/24/19 [History] ciprofloxacin HCl 500 mg PO BID 12/24/19 [History] gabapentin 300 mg PO TID PRN 12/24/19 [History] - Review of Systems Constitutional: Fever, Chills, Weakness Eyes: No Symptoms Reported ENT: No Symptoms Reported Respiratory: No Symptoms Reported Cardiovascular: No Symptoms Reported Gastrointestinal: See HPI, Nausea, Vomiting, Abdominal Pain Genitourinary: No Symptoms Reported Musculoskeletal: No Symptoms Reported Skin: No Symptoms Reported Neurological: Weakness - Physical Exam Vital Signs: Temperature 98.8 F Pulse Rate [Right Radial] 58 Pulse Rate 83 Respiratory Rate 20 Blood Pressure [Left Arm] 152/79 Blood Pressure [Right Arm] 96/58 Blood Pressure 103/59 O2 Sat by Pulse Oximetry 97 Oriented: Normal Eyes: Normal Ear: Normal Nose: Normal Throat: Normal Respiratory: Diminished Throughout Cardiovascular: Normal : Normal, Hematuria Palpation: Normal Tenderness: Suprapubic, Moderate. negative: Rebound, Guarding, Rigidity Skin: Normal Musculoskeletal: Normal Psychiatric: Normal Mood Description: Calm Affect: Normal Speech Pattern: Clear - Assessment/Plan (1) Sepsis due to urinary tract infection Status: Acute Plan: NS WITH 20MEQ KCL AT 125ML/HR, LEVAQUIN 500MG IV DAILY, FORTAZ 1G IV Q12H, ZOFRAN 4MG IV Q4H PRN, AND HOME MEDICATIONS OF XANAX, GABAPENTIN, LEXAPRO, SYNTHROID, WERE RESUMED. (2) Dehydration Status: Acute (3) Hypokalemia Status: Acute - Allergies Allergies/Adverse Reactions: Allergies Allergy/AdvReac Type Severity Reaction Status Date / Time codeine Allergy Verified 05/20/18 12:30 diphenhydramine Allergy Verified 05/20/18 12:30 [From Benadryl] ibuprofen Allergy Verified 05/20/18 12:30 morphine Allergy Verified 05/20/18 12:30 Penicillins Allergy Verified 05/20/18 12:30 promethazine [From Phenergan] Allergy Verified 05/20/18 12:30
[2019-12-26] MEDS: NS + KCL 20 MEQ/L 1,000 ML IV SCH ×4 (04:24→21:50)
[2019-12-26] MEDS: TYLENOL 325 MG TAB PO PRN ×3 (04:25→19:20)
[2019-12-26] MEDS: SYNTHROID 75 mcg TAB PO SCH (06:00)
[2019-12-26 06:27] LABS: BASOPHILS % (AUTO) 0.2 % (0.2-1.0); EOSINOPHILS % (AUTO) 0.1 % (0.9-2.9); HEMATOCRIT 26.9 % (36.0-47.0); HEMOGLOBIN 9.5 g/dL (12.0-16.0); LYMPHOCYTES # (AUTO) 0.3 X10^3/uL (1.3-2.9); LYMPHOCYTES % (AUTO) 4.7 % (21.0-51.0); MEAN CORPUSCULAR HGB CONC 35.2 g/dL (33.0-35.0); MEAN CORPUSCULAR VOLUME 116.3 fL (80.0-100.0); MEAN PLATELET VOLUME 11.7 fL (7.4-11.0); MONOCYTES # (AUTO) 0.3 x10^3/uL (0.3-0.8); MONOCYTES % (AUTO) 5.5 % (0.0-13.0); NEUTROPHILS # (AUTO) 5.2 x10^3/uL (2.2-4.8); NEUTROPHILS % (AUTO) 89.5 % (42.0-75.0); PLATELET COUNT 45 X10^3/uL (150.0-450.0); RED BLOOD COUNT 2.31 X10^6/uL (3.5-5.4); RED CELL DISTRIBUTION WIDTH 13.8 % (11.6-16.5); WHITE BLOOD COUNT 5.8 X10^3/uL (3.6-10.0)
[2019-12-26 06:38] LABS: ALANINE AMINOTRANSFERASE 12 Units/L (12-78); ALKALINE PHOSPHATASE 65 Units/L (46-116); ASPARTATE AMINO TRANSFERASE 16 Units/L (15-37); BLOOD UREA NITROGEN 27 mg/dL (7-18); CALCIUM 8.2 mg/dL (8.5-10.1); CARBON DIOXIDE 22.7 mmol/L (21-32); CHLORIDE 104 mmol/L (98-107); COR CA(FOR HYPOALB) 9.8 mg/dL (8.5-10.1); CREATININE 1.81 mg/dL (0.55-1.02); SODIUM 135 mmol/L (136-145); TOTAL PROTEIN 4.7 g/dL (6.4-8.2); eGFR NON BLACK RACES 29 (>60)
[2019-12-26 06:54] LABS: PLATELET MORPHOLOGY COMMENT NORMAL (NORMAL)
[2019-12-26] MEDS ORDERED: LEXAPRO ONE (08:20)
[2019-12-26] MEDS: LEVAQUIN PREMIX IV 500 MG 500 MG/100 ML BAG IV SCH (08:25)
[2019-12-26] MEDS: LINZESS PO SCH (08:27)
[2019-12-26] MEDS: LEXAPRO PO SCH (08:27)
[2019-12-26] MEDS: FORTAZ or TAZICEF VIAL INJ 1 G in NS 100 ML IV + SPIKE MINIBAG* 100 ML IV SCH ×2 (09:56→21:07)
[2019-12-26] MEDS: XANAX PO PRN (22:05)
[2019-12-27] MEDS: TYLENOL 325 MG TAB PO PRN ×3 (01:09→20:25)
[2019-12-27] MEDS: NS + KCL 20 MEQ/L 1,000 ML IV SCH ×5 (01:18→20:23)
[2019-12-27] MEDS: SYNTHROID 75 mcg TAB PO SCH (05:23)
[2019-12-27 06:38] LABS: ALANINE AMINOTRANSFERASE 9 Units/L (12-78); ALBUMIN 1.7 g/dL (3.4-5.0); ALKALINE PHOSPHATASE 58 Units/L (46-116); ASPARTATE AMINO TRANSFERASE 17 Units/L (15-37); BLOOD UREA NITROGEN 21 mg/dL (7-18); CALCIUM 8.5 mg/dL (8.5-10.1); CARBON DIOXIDE 20.9 mmol/L (21-32); CHLORIDE 105 mmol/L (98-107); COR CA(FOR HYPOALB) 10.3 mg/dL (8.5-10.1); CREATININE 1.67 mg/dL (0.55-1.02); SODIUM 135 mmol/L (136-145); TOTAL PROTEIN 4.7 g/dL (6.4-8.2); eGFR NON BLACK RACES 32 (>60)
[2019-12-27 06:39] LABS: BASOPHILS % (AUTO) 0.1 % (0.2-1.0); EOSINOPHILS % (AUTO) 0.5 % (0.9-2.9); HEMATOCRIT 27.9 % (36.0-47.0); HEMOGLOBIN 9.7 g/dL (12.0-16.0); LYMPHOCYTES # (AUTO) 0.4 X10^3/uL (1.3-2.9); LYMPHOCYTES % (AUTO) 7.1 % (21.0-51.0); MEAN CORPUSCULAR HEMOGLOBIN 40.9 pg (27.0-34.0); MEAN PLATELET VOLUME 10.9 fL (7.4-11.0); MONOCYTES # (AUTO) 0.4 x10^3/uL (0.3-0.8); NEUTROPHILS # (AUTO) 4.9 x10^3/uL (2.2-4.8); NEUTROPHILS % (AUTO) 85.3 % (42.0-75.0); PLATELET COUNT 38 X10^3/uL (150.0-450.0); RED BLOOD COUNT 2.38 X10^6/uL (3.5-5.4); RED CELL DISTRIBUTION WIDTH 14.1 % (11.6-16.5); WHITE BLOOD COUNT 5.7 X10^3/uL (3.6-10.0)
[2019-12-27 07:46] LABS: PLATELET MORPHOLOGY COMMENT NORMAL (NORMAL)
[2019-12-27] MEDS ORDERED: LEXAPRO ONE (08:22)
[2019-12-27] MEDS: LEXAPRO PO SCH (08:37)
[2019-12-27] MEDS: LINZESS PO SCH (08:37)
[2019-12-27] MEDS: LEVAQUIN PREMIX IV 500 MG 500 MG/100 ML BAG IV SCH (08:38)
--- NOTE | 2019-12-27 08:48 | VAS ---
HISTORYDIZZINESSSTUDYCAROTID USCOMPARISONNone.TECHNIQUEMultiple houser scale and color flow Doppler images of the right and left carotid arterial system were obtained. The vertebral arterial system was evaluated as well.FINDINGSNormal color flow Doppler is seen throughout the right and left carotid arterial system. Maximum internal carotid artery velocity of [119] centimeters/second on the right and maximum internal carotid artery velocity on the left of [110] centimeters/second. Right ICA/CCA ratio of [2.83] and left ICA/CCA ratio [1.44]. [There is a stent within the right internal carotid artery. Moderate to severe soft and calcific plaque is seen within the right internal carotid artery. [id number] soft and calcific plaque within the left internal carotid artery.][No hemodynamically significant stenosis is seen based on velocity criteria]. [The right and left vertebral arteries demonstrate antegrade flow].IMPRESSIONLess than 50 percent stenosis of the bilateral internal carotid arteries.Electronically signed by: ZAIDA DE LA CRUZ (Dec 27, 2019 08:47:34)
[2019-12-27] MEDS ORDERED: INVANZ INJ 1 GM VIAL 0.5 GM in NS 100 ML IV + SPIKE MINIBAG* 100 ML IV SCH (11:00)
[2019-12-27] MEDS: ALBUMIN HUMAN 25%- 100 ML 100 ML IV SCH (12:05)
--- NOTE | 2019-12-27 14:55 | PCM.PROG ---
Progress Note - Progress Note for Day of Date of Exam: 12/26/19 - Subjective Subjective: IS BEING TREATED FOR UROSEPSIS, DEHYDRATION, AND HYPOKALEMIA. TODAY, SHE IS ALERT AND ORIENTED, LYING IN BED ON MORNING ROUNDS. SHE CONTINUES WITH REPORTS OF LOWER ABDOMINAL PAIN AND WEAKNESS. SHE ALSO REPORTS DIZZINESS AT TIMES. FAMILY REPORTS THAT SHE HAD PASSED OUT A FEW TIMES AT HOME OVER THE PAST FEW WEEKS. ON EXAMINATION, HEART IS REGULAR IN RATE AND RHYTHM. BILATERAL LUNGS ARE NOTED WITH DIMINISHED LUNG SOUNDS THROUGHOUT. ABDOMEN IS ROUND, SOFT, AND NOTED WITH SUPRAPUBIC TENDERNESS TO PALPATION. NORMAL BOWEL SOUNDS ARE NOTED IN ALL QUADRANTS. HER VITALS THIS MORNING ARE: 98.4-82-20-100%-90/54. LABS WERE OBTAINED. ABNORMAL LAB VALUES INCLUDE THE FOLLOWING: RBC 2.31, HGB 9.5, HCT 26.9, PLT COUNT 45, SODIUM 135, POTASSIUM 3.2, BUN 27, CREATININE 1.81, CALCIUM 8.2, TOTAL PROTEIN 4.7, ALBUMIN 2.0. BLOOD AND URINE CULTURES ARE PENDING. SHE IS CURRENTLY RECEIVING NS WITH 20MEQ KCL AT 125ML/HR, LEVAQUIN 500MG IV DAILY, FORTAZ 1G IV Q12H, ZOFRAN 4MG IV Q4H PRN, AND HOME MEDICATIONS OF XANAX, GABAPENTIN, LEXAPRO, SYNTHROID, WERE RESUMED. TODAY, WE WILL OBTAIN A PERIPHERAL SMEAR, CAROTID DOPPLER, AND CHECK STOOL FOR OCCULT BLOOD. OTHERWISE, WE WILL FOLLOW UP WITH AM LABS AND CONTINUE TO MONITOR. - Past Medical Family Social History Past Med/Fam/Surg Hx: No changes since H&P Allergies: Allergies codeine Allergy (Verified 05/20/18 12:30) diphenhydramine [From Benadryl] Allergy (Verified 05/20/18 12:30) ibuprofen Allergy (Verified 05/20/18 12:30) morphine Allergy (Verified 05/20/18 12:30) Penicillins Allergy (Verified 05/20/18 12:30) promethazine [From Phenergan] Allergy (Verified 05/20/18 12:30) - Review of Systems ROS: No change since H&P - Vital Signs and I&O's Vital Signs: Temperature 99.1 F Pulse Rate [Right Radial] 77 Pulse Rate 83 Respiratory Rate 20 Blood Pressure [Left Arm] 122/58 Blood Pressure [Right Arm] 109/52 Blood Pressure 103/59 O2 Sat by Pulse Oximetry 95 Intake and Output: Intake & Output 12/25/19 12/26/19 12/27/19 12/28/19 11:59 11:59 11:59 11:59 Intake Total 2860 / 2860 1640 / 1640 3180 / 3180 Balance 2860 / 2860 1640 / 1640 3180 / 3180 - Physical Exam Oriented: Normal Eyes: Normal Ear: Normal Nose: Normal Throat: Normal Respiratory: Generalized, Diminished Cardiovascular: Normal : Normal, Hematuria Tenderness: Suprapubic, Moderate. negative: Rebound, Guarding, Rigidity Skin: Normal Musculoskeletal: Normal Psychiatric: Normal Mood Description: Calm Affect: Normal Speech Pattern: Clear - Laboratory and Diagnostics Result Diagrams: 12/27/19 05:57 12/27/19 05:57 Labs: 12/25/19 16:25 Blood Blood Culture - Preliminary 12/25/19 16:15 Blood Blood Culture - Preliminary 12/24/19 15:40 Blood Blood Culture - Final Escherichia Coli 12/24/19 15:10 Urine,Catheterized Urine Culture - Final Escherichia Coli 12/24/19 15:44 Blood Blood Culture - Preliminary Laboratory WBC 5.7 X10^3/uL (3.6-10.0) 12/27/19 05:57 RBC 2.38 X10^6/uL (3.5-5.4) L 12/27/19 05:57 Hgb 9.7 g/dL (12.0-16.0) L 12/27/19 05:57 Hct 27.9 % (36.0-47.0) L 12/27/19 05:57 MCV 117.0 fL (80.0-100.0) H 12/27/19 05:57 MCH 40.9 pg (27.0-34.0) H 12/27/19 05:57 MCHC 35.0 g/dL (33.0-35.0) 12/27/19 05:57 RDW 14.1 % (11.6-16.5) 12/27/19 05:57 Plt Count 38 X10^3/uL (150.0-450.0) L 12/27/19 05:57 Plt Count Comment Decreased (ADEQUATE) A 12/27/19 05:57 MPV 10.9 fL (7.4-11.0) 12/27/19 05:57 Neut % (Auto) 85.3 % (42.0-75.0) H 12/27/19 05:57 Lymph % (Auto) 7.1 % (21.0-51.0) L 12/27/19 05:57 [place] % (Auto) 7.0 % (0.0-13.0) 12/27/19 05:57 Eos % (Auto) 0.5 % (0.9-2.9) L 12/27/19 05:57 Baso % (Auto) 0.1 % (0.2-1.0) L 12/27/19 05:57 Neut # (Auto) 4.9 x10^3/uL (2.2-4.8) H 12/27/19 05:57 Lymph # (Auto) 0.4 X10^3/uL (1.3-2.9) L 12/27/19 05:57 [place] # (Auto) 0.4 x10^3/uL (0.3-0.8) 12/27/19 05:57 Eos # (Auto) 0.0 x10^3/uL (0.0-0.2) 12/27/19 05:57 Baso # (Auto) 0.0 X10^3/uL (0.0-0.1) 12/27/19 05:57 Absolute Nucleated RBC 0.0 /100WBC 12/27/19 05:57 Total Counted 100 12/25/19 05:55 Neutrophils % (Manual) 83 % (39-76) H 12/25/19 05:55 Band Neutrophils % 2 % (0-10) 12/25/19 05:55 Lymphocytes % (Manual) 9 % (13-43) L 12/25/19 05:55 Monocytes % (Manual) 6 % (4-9) 12/25/19 05:55 Plt Morphology Comment Normal (NORMAL) 12/27/19 05:57 RBC Morphology Abnormal (NORMAL) A 12/27/19 05:57 Macrocytosis 3+ A 12/27/19 05:57 PT 13.0 SECONDS (11.8-14.3) 12/24/19 15:40 INR Target Range - 12/24/19 15:40 INR 1.01 (0.8-1.3) 12/24/19 15:40 Sodium 135 mmol/L (136-145) L 12/27/19 05:57 Corrected Sodium TNP 12/27/19 05:57 Potassium 3.5 mmol/L (3.5-5.1) 12/27/19 05:57 Chloride 105 mmol/L (98-107) 12/27/19 05:57 Carbon Dioxide 20.9 mmol/L (21-32) L 12/27/19 05:57 BUN 21 mg/dL (7-18) H 12/27/19 05:57 Creatinine 1.67 mg/dL (0.55-1.02) H 12/27/19 05:57 Est GFR (MDRD) Af Amer 39 (>60) L 12/27/19 05:57 Est GFR (MDRD) Non-Af 32 (>60) L 12/27/19 05:57 Glucose 83 mg/dL (65-99) 12/27/19 05:57 Lactic Acid 1.3 mmol/L (0.4-2.0) 12/25/19 21:13 Calcium 8.5 mg/dL (8.5-10.1) 12/27/19 05:57 Corrected Calcium 10.3 mg/dL (8.5-10.1) H 12/27/19 05:57 Magnesium 2.2 mg/dL (1.7-2.9) 12/25/19 05:55 Total Bilirubin 0.50 mg/dL (0.2-1.0) 12/27/19 05:57 AST 17 Units/L (15-37) 12/27/19 05:57 ALT 9 Units/L (12-78) L 12/27/19 05:57 Alkaline Phosphatase 58 Units/L (46-116) 12/27/19 05:57 Total Protein 4.7 g/dL (6.4-8.2) L 12/27/19 05:57 Albumin 1.7 g/dL (3.4-5.0) L 12/27/19 05:57 Globulin 3.0 g/dL (2.5-4.5) 12/27/19 05:57 Albumin/Globulin Ratio 0.6 Ratio (1.1-2.1) L 12/27/19 05:57 Lipase 46 Units/L (73-393) L 12/24/19 15:40 Specimen Type Catherized urine 12/24/19 15:10 Urine Color Yellow (YELLOW) 12/24/19 15:10 Urine Appearance Slightly hazy (CLEAR) 12/24/19 15:10 Urine pH 5.0 (5.0 - 8.0) 12/24/19 15:10 Ur Specific [place] 1.015 (1.000-1.030) 12/24/19 15:10 Urine Protein 3+ (NEGATIVE) 12/24/19 15:10 Urine Glucose (UA) Negative (NEGATIVE) 12/24/19 15:10 Urine Ketones Negative (NEGATIVE) 12/24/19 15:10 Urine Occult Blood 4+ (NEGATIVE) 12/24/19 15:10 Urine Nitrite Negative (NEGATIVE) 12/24/19 15:10 Urine Bilirubin Negative (NEGATIVE) 12/24/19 15:10 Urine Urobilinogen 1+ (NORMAL) 12/24/19 15:10 Ur Leukocyte Esterase 3+ (NEGATIVE) 12/24/19 15:10 Urine RBC 5-10 /HPF (0-3) A 12/24/19 15:10 Urine WBC Tntc /HPF (0-5) A 12/24/19 15:10 Ur Squamous Epith Cells Negative /HPF (NEGATIVE) 12/24/19 15:10 Urine Bacteria 1+ /HPF (NEGATIVE) 12/24/19 15:10 Ur Culture Indicated? Yes/culture set up 12/24/19 15:10 SARS-CoV-2 (PCR) Negative (NEGATIVE) 12/24/19 16:50 - Plan (1) Sepsis due to urinary tract infection Status: Acute Plan: NS WITH 20MEQ KCL AT 125ML/HR, LEVAQUIN 500MG IV DAILY, FORTAZ 1G IV Q12H, ZOFRAN 4MG IV Q4H PRN, AND HOME MEDICATIONS OF XANAX, GABAPENTIN, LEXAPRO, SYNTHROID, WERE RESUMED. (2) Dehydration Status: Acute (3) Hypokalemia Status: Acute (4) Anemia Status: Acute Qualifiers: Anemia type: iron deficiency Iron deficiency anemia type: unspecified iron deficiency Qualified Code(s): D50.9 - Iron deficiency anemia, unspecified Plan: BLOOD SMEAR FOR PATHOLGY, STOOL FOR OCCULT BLOOD, CONTINUE TO MONITOR
[2019-12-27] MEDS ORDERED: INVANZ INJ 1 GM VIAL ONE (19:59)
[2019-12-27] MEDS ORDERED: NS 100 ML IV + SPIKE MINIBAG* 100 ML IV ONE (20:00)
[2019-12-27] MEDS: INVANZ INJ 1 GM VIAL 0.5 GM in NS 100 ML IV + SPIKE MINIBAG* 100 ML IV SCH (20:24)
[2019-12-27] MEDS: XANAX PO PRN (20:25)
[2019-12-28] MEDS: NS + KCL 20 MEQ/L 1,000 ML IV SCH ×3 (04:21→20:51)
[2019-12-28] MEDS: SYNTHROID 75 mcg TAB PO SCH (05:43)
[2019-12-28 05:58] LABS: ALANINE AMINOTRANSFERASE 11 Units/L (12-78); ALBUMIN 2.3 g/dL (3.4-5.0); ALKALINE PHOSPHATASE 54 Units/L (46-116); ASPARTATE AMINO TRANSFERASE 16 Units/L (15-37); BLOOD UREA NITROGEN 20 mg/dL (7-18); CALCIUM 8.8 mg/dL (8.5-10.1); CARBON DIOXIDE 21.7 mmol/L (21-32); CHLORIDE 109 mmol/L (98-107); COR CA(FOR HYPOALB) 10.2 mg/dL (8.5-10.1); CREATININE 1.76 mg/dL (0.55-1.02); SODIUM 138 mmol/L (136-145); eGFR NON BLACK RACES 30 (>60)
[2019-12-28 06:08] LABS: BASOPHILS % (AUTO) 0.2 % (0.2-1.0); EOSINOPHILS % (AUTO) 0.6 % (0.9-2.9); HEMOGLOBIN 9.3 g/dL (12.0-16.0); LYMPHOCYTES # (AUTO) 0.4 X10^3/uL (1.3-2.9); LYMPHOCYTES % (AUTO) 8.7 % (21.0-51.0); MEAN CORPUSCULAR HEMOGLOBIN 40.5 pg (27.0-34.0); MEAN CORPUSCULAR HGB CONC 34.6 g/dL (33.0-35.0); MEAN CORPUSCULAR VOLUME 117.1 fL (80.0-100.0); MEAN PLATELET VOLUME 11.3 fL (7.4-11.0); MONOCYTES # (AUTO) 0.4 x10^3/uL (0.3-0.8); MONOCYTES % (AUTO) 10.1 % (0.0-13.0); NEUTROPHILS # (AUTO) 3.6 x10^3/uL (2.2-4.8); NEUTROPHILS % (AUTO) 80.4 % (42.0-75.0); PLATELET COUNT 34 X10^3/uL (150.0-450.0); RED CELL DISTRIBUTION WIDTH 14.3 % (11.6-16.5); WHITE BLOOD COUNT 4.4 X10^3/uL (3.6-10.0)
[2019-12-28 07:14] LABS: PLATELET MORPHOLOGY COMMENT NORMAL (NORMAL)
[2019-12-28] MEDS ORDERED: LEXAPRO ONE (09:06)
[2019-12-28] MEDS: ALBUMIN HUMAN 25%- 100 ML 100 ML IV SCH (09:45)
[2019-12-28] MEDS: LEXAPRO PO SCH (09:46)
[2019-12-28] MEDS: NEURONTIN CAP 300 MG PO SCH ×2 (09:46→20:52)
[2019-12-28] MEDS: LINZESS PO SCH (09:46)
--- NOTE | 2019-12-28 19:21 | PCM.PROG ---
Progress Note - Progress Note for Day of Date of Exam: 12/27/19 - Subjective Subjective: IS BEING TREATED FOR UROSEPSIS, DEHYDRATION, AND HYPOKALEMIA. TODAY, SHE IS ALERT AND ORIENTED, LYING IN BED ON MORNING ROUNDS. SHE CONTINUES WITH REPORTS OF LOWER ABDOMINAL PAIN AND WEAKNESS. STAFF REPORTS THAT SHE IS CONFUSED AT TIMES. ON EXAMINATION, HEART IS REGULAR IN RATE AND RHYTHM. BILATERAL LUNGS ARE NOTED WITH DIMINISHED LUNG SOUNDS THROUGHOUT. ABDOMEN IS ROUND, SOFT, AND NOTED WITH SUPRAPUBIC TENDERNESS TO PALPATION. NORMAL BOWEL SOUNDS ARE NOTED IN ALL QUADRANTS. HER VITALS THIS MORNING ARE: 99.1-77-18-95%-122/58. LABS WERE OBTAINED. ABNORMAL LAB VALUES INCLUDE THE FO LLOWING: RBC 2.38, HGB 9.7, HCT 27.9, PLT COUNT 38, SODIUM 135, CARBON DIOXIDE 20.9, BUN 21, CREATININE 1.67, ALT 9, TOTAL PROTEIN 4.7, ALBUMIN 1.7. URINE CULTURES REPORT GROWTH OF E.COLI. SHE IS CURRENTLY RECEIVING NS WITH 20MEQ KCL AT 125ML/HR, LEVAQUIN 500MG IV DAILY, FORTAZ 1G IV Q12H, ZOFRAN 4MG IV Q4H PRN, AND HOME MEDICATIONS OF XANAX, GABAPENTIN, LEXAPRO, SYNTHROID, WERE RESUMED. WE WILL DISCONTINUE THE FORTAZ AND LEVAQUIN TODAY AND START INVANZ 0.5G IV DAILY. WE WILL ALSO START ALBUMIN 25% IV DAILY. OTHERWISE, WE WILL FOLLOW UP WITH AM LABS AND CONTINUE TO MONITOR. - Past Medical Family Social History Past Med/Fam/Surg Hx: No changes since H&P Allergies: Allergies codeine Allergy (Verified 05/20/18 12:30) diphenhydramine [From Benadryl] Allergy (Verified 05/20/18 12:30) ibuprofen Allergy (Verified 05/20/18 12:30) morphine Allergy (Verified 05/20/18 12:30) Penicillins Allergy (Verified 05/20/18 12:30) promethazine [From Phenergan] Allergy (Verified 05/20/18 12:30) - Review of Systems ROS: No change since H&P - Vital Signs and I&O's Vital Signs: Temperature 97.8 F Pulse Rate [Right Radial] 83 Pulse Rate 83 Respiratory Rate 20 Blood Pressure [Left Arm] 174/74 Blood Pressure [Right Arm] 109/52 Blood Pressure 103/59 O2 Sat by Pulse Oximetry 96 Intake and Output: Intake & Output 12/26/19 12/27/19 12/28/19 12/29/19 11:59 11:59 11:59 11:59 Intake Total 1640 / 1640 3180 / 3180 1682 / 1682 480 / 480 Balance 1640 / 1640 3180 / 3180 1682 / 1682 480 / 480 - Physical Exam Oriented: Normal Eyes: Normal Ear: Normal Nose: Normal Throat: Normal Respiratory: Generalized, Diminished Cardiovascular: Normal : Normal, Hematuria Palpation: Normal Tenderness: Suprapubic, Moderate. negative: Rebound, Guarding, Rigidity Skin: Normal Musculoskeletal: Normal Psychiatric: Normal Mood Description: Calm Affect: Normal Speech Pattern: Clear - Laboratory and Diagnostics Result Diagrams: 12/28/19 05:28 12/28/19 05:28 Labs: 12/25/19 16:25 Blood Blood Culture - Final Escherichia Coli 12/25/19 16:15 Blood Blood Culture - Final Escherichia Coli 12/24/19 15:40 Blood Blood Culture - Final Escherichia Coli 12/24/19 15:10 Urine,Catheterized Urine Culture - Final Escherichia Coli 12/24/19 15:44 Blood Blood Culture - Preliminary Laboratory WBC 4.4 X10^3/uL (3.6-10.0) 12/28/19 05:28 RBC 2.30 X10^6/uL (3.5-5.4) L 12/28/19 05:28 Hgb 9.3 g/dL (12.0-16.0) L 12/28/19 05:28 Hct 27.0 % (36.0-47.0) L 12/28/19 05:28 MCV 117.1 fL (80.0-100.0) H 12/28/19 05:28 MCH 40.5 pg (27.0-34.0) H 12/28/19 05:28 MCHC 34.6 g/dL (33.0-35.0) 12/28/19 05:28 RDW 14.3 % (11.6-16.5) 12/28/19 05:28 Plt Count 34 X10^3/uL (150.0-450.0) L 12/28/19 05:28 Plt Count Comment Decreased (ADEQUATE) A 12/28/19 05:28 MPV 11.3 fL (7.4-11.0) H 12/28/19 05:28 Neut % (Auto) 80.4 % (42.0-75.0) H 12/28/19 05:28 Lymph % (Auto) 8.7 % (21.0-51.0) L 12/28/19 05:28 [place] % (Auto) 10.1 % (0.0-13.0) 12/28/19 05:28 Eos % (Auto) 0.6 % (0.9-2.9) L 12/28/19 05:28 Baso % (Auto) 0.2 % (0.2-1.0) 12/28/19 05:28 Neut # (Auto) 3.6 x10^3/uL (2.2-4.8) 12/28/19 05:28 Lymph # (Auto) 0.4 X10^3/uL (1.3-2.9) L 12/28/19 05:28 [place] # (Auto) 0.4 x10^3/uL (0.3-0.8) 12/28/19 05:28 Eos # (Auto) 0.0 x10^3/uL (0.0-0.2) 12/28/19 05:28 Baso # (Auto) 0.0 X10^3/uL (0.0-0.1) 12/28/19 05:28 Absolute Nucleated RBC 0.0 /100WBC 12/28/19 05:28 Total Counted 100 12/25/19 05:55 Neutrophils % (Manual) 83 % (39-76) H 12/25/19 05:55 Band Neutrophils % 2 % (0-10) 12/25/19 05:55 Lymphocytes % (Manual) 9 % (13-43) L 12/25/19 05:55 Monocytes % (Manual) 6 % (4-9) 12/25/19 05:55 Plt Morphology Comment Normal (NORMAL) 12/28/19 05:28 RBC Morphology Abnormal (NORMAL) A 12/28/19 05:28 Macrocytosis 2+ A 12/28/19 05:28 PT 13.0 SECONDS (11.8-14.3) 12/24/19 15:40 INR Target Range - 12/24/19 15:40 INR 1.01 (0.8-1.3) 12/24/19 15:40 Sodium 138 mmol/L (136-145) 12/28/19 05:28 Corrected Sodium TNP 12/28/19 05:28 Potassium 4.3 mmol/L (3.5-5.1) 12/28/19 05:28 Chloride 109 mmol/L (98-107) H 12/28/19 05:28 Carbon Dioxide 21.7 mmol/L (21-32) 12/28/19 05:28 BUN 20 mg/dL (7-18) H 12/28/19 05:28 Creatinine 1.76 mg/dL (0.55-1.02) H 12/28/19 05:28 Est GFR (MDRD) Af Amer 36 (>60) L 12/28/19 05:28 Est GFR (MDRD) Non-Af 30 (>60) L 12/28/19 05:28 Glucose 68 mg/dL (65-99) 12/28/19 05:28 Lactic Acid 1.3 mmol/L (0.4-2.0) 12/25/19 21:13 Calcium 8.8 mg/dL (8.5-10.1) 12/28/19 05:28 Corrected Calcium 10.2 mg/dL (8.5-10.1) H 12/28/19 05:28 Magnesium 2.2 mg/dL (1.7-2.9) 12/25/19 05:55 Total Bilirubin 0.50 mg/dL (0.2-1.0) 12/28/19 05:28 AST 16 Units/L (15-37) 12/28/19 05:28 ALT 11 Units/L (12-78) L 12/28/19 05:28 Alkaline Phosphatase 54 Units/L (46-116) 12/28/19 05:28 Total Protein 5.0 g/dL (6.4-8.2) L 12/28/19 05:28 Albumin 2.3 g/dL (3.4-5.0) L 12/28/19 05:28 Globulin 2.7 g/dL (2.5-4.5) 12/28/19 05:28 Albumin/Globulin Ratio 0.9 Ratio (1.1-2.1) L 12/28/19 05:28 Lipase 46 Units/L (73-393) L 12/24/19 15:40 Specimen Type Catherized urine 12/24/19 15:10 Urine Color Yellow (YELLOW) 12/24/19 15:10 Urine Appearance Slightly hazy (CLEAR) 12/24/19 15:10 Urine pH 5.0 (5.0 - 8.0) 12/24/19 15:10 Ur Specific [place] 1.015 (1.000-1.030) 12/24/19 15:10 Urine Protein 3+ (NEGATIVE) 12/24/19 15:10 Urine Glucose (UA) Negative (NEGATIVE) 12/24/19 15:10 Urine Ketones Negative (NEGATIVE) 12/24/19 15:10 Urine Occult Blood 4+ (NEGATIVE) 12/24/19 15:10 Urine Nitrite Negative (NEGATIVE) 12/24/19 15:10 Urine Bilirubin Negative (NEGATIVE) 12/24/19 15:10 Urine Urobilinogen 1+ (NORMAL) 12/24/19 15:10 Ur Leukocyte Esterase 3+ (NEGATIVE) 12/24/19 15:10 Urine RBC 5-10 /HPF (0-3) A 12/24/19 15:10 Urine WBC Tntc /HPF (0-5) A 12/24/19 15:10 Ur Squamous Epith Cells Negative /HPF (NEGATIVE) 12/24/19 15:10 Urine Bacteria 1+ /HPF (NEGATIVE) 12/24/19 15:10 Ur Culture Indicated? Yes/culture set up 12/24/19 15:10 SARS-CoV-2 (PCR) Negative (NEGATIVE) 12/24/19 16:50 - Plan (1) Sepsis due to urinary tract infection Status: Acute Plan: NS WITH 20MEQ KCL AT 125ML/HR, INVANZ 0.5G IV DAILY, ZOFRAN 4MG IV Q4H PRN, AND HOME MEDICATIONS OF XANAX, GABAPENTIN, LEXAPRO, SYNTHROID, WERE RESUMED. (2) Dehydration Status: Acute (3) Hypokalemia Status: Acute (4) Anemia Status: Acute Qualifiers: Anemia type: iron deficiency Iron deficiency anemia type: unspecified iron deficiency Qualified Code(s): D50.9 - Iron deficiency anemia, unspecified Plan: BLOOD SMEAR FOR PATHOLGY, STOOL FOR OCCULT BLOOD, CONTINUE TO MONITOR
[2019-12-28] MEDS ORDERED: INVANZ INJ 1 GM VIAL ONE (19:31)
[2019-12-28] MEDS ORDERED: NS 100 ML IV 100 ML IV ONE (19:32)
[2019-12-28] MEDS: INVANZ INJ 1 GM VIAL 0.5 GM in NS 100 ML IV + SPIKE MINIBAG* 100 ML IV SCH (20:52)
[2019-12-28] MEDS: XANAX PO PRN (20:56)
--- NOTE | 2019-12-28 21:51 | PCM.PROG ---
Progress Note - Progress Note for Day of Date of Exam: 12/28/19 - Subjective Subjective: IS BEING TREATED FOR UROSEPSIS, DEHYDRATION, AND HYPOKALEMIA. TODAY, SHE IS ALERT AND ORIENTED, LYING IN BED ON MORNING ROUNDS. SHE CONTINUES WITH REPORTS OF LOWER ABDOMINAL PAIN AND WEAKNESS. STAFF REPORTS THAT SHE CONTINUES WITH CONFUSION AND DISORIENTATION. ON EXAMINATION, HEART IS REGULAR IN RATE AND RHYTHM. BILATERAL LUNGS ARE NOTED WITH DIMINISHED LUNG SOUNDS THROUGHOUT. ABDOMEN IS ROUND, SOFT, AND NOTED WITH SUPRAPUBIC TENDERNESS TO PALPATION. NORMAL BOWEL SOUNDS ARE NOTED IN ALL QUADRANTS. HER VITALS THIS MORNING ARE: 98.6-98-20-96%-171/67. LABS WERE OBTAINED. ABNORMAL LAB VALUES INCLUDE THE FOLLOWING: RBC 2.30, HGB 9.3, HCT 27.0, PLT COUNT 34, CHLORIDE 109, BUN 20, CREATININE 1.76, ALT 11, TOTAL PROTEIN 5.0, ALBUMIN 2.3. URINE AND BLOOD CULTURES REPORT GROWTH OF E.COLI. SHE IS CURRENTLY RECEIVING NS WITH 20MEQ KCL AT 125ML/HR, ALBUMIN 25% IV DAILY, INVANZ 0.5G IV DAILY, ZOFRAN 4MG IV Q4H PRN, AND HOME MEDICATIONS OF XANAX, GABAPENTIN, LEXAPRO, SYNTHROID, WERE RESUMED. WE WILL CONTINUE WITH CURRENT PLAN OF CARE TODAY. OTHERWISE, WE WILL FOLLOW UP WITH AM LABS AND CONTINUE TO MONITOR. - Past Medical Family Social History Past Med/Fam/Surg Hx: No changes since H&P Allergies: Allergies codeine Allergy (Verified 05/20/18 12:30) diphenhydramine [From Benadryl] Allergy (Verified 05/20/18 12:30) ibuprofen Allergy (Verified 05/20/18 12:30) morphine Allergy (Verified 05/20/18 12:30) Penicillins Allergy (Verified 05/20/18 12:30) promethazine [From Phenergan] Allergy (Verified 05/20/18 12:30) - Review of Systems ROS: No change since H&P - Vital Signs and I&O's Vital Signs: Temperature 98.6 F Pulse Rate [Right Radial] 97 Pulse Rate 83 Respiratory Rate 18 Blood Pressure [Left Arm] 173/77 Blood Pressure [Right Arm] 109/52 Blood Pressure 103/59 O2 Sat by Pulse Oximetry 99 Intake and Output: Intake & Output 12/26/19 12/27/19 12/28/19 12/29/19 11:59 11:59 11:59 11:59 Intake Total 1640 / 1640 3180 / 3180 1682 / 1682 480 / 480 Balance 1640 / 1640 3180 / 3180 1682 / 1682 480 / 480 - Physical Exam Oriented: Normal Eyes: Normal Ear: Normal Nose: Normal Throat: Normal Respiratory: Generalized, Diminished Cardiovascular: Normal : Normal, Hematuria Tenderness: Suprapubic, Moderate. negative: Rebound, Guarding, Rigidity Skin: Normal Musculoskeletal: Normal Psychiatric: Normal Mood Description: Calm Affect: Normal Speech Pattern: Clear - Laboratory and Diagnostics Result Diagrams: 12/28/19 05:28 12/28/19 05:28 Labs: 12/25/19 16:25 Blood Blood Culture - Final Escherichia Coli 12/25/19 16:15 Blood Blood Culture - Final Escherichia Coli 12/24/19 15:40 Blood Blood Culture - Final Escherichia Coli 12/24/19 15:10 Urine,Catheterized Urine Culture - Final Escherichia Coli 12/24/19 15:44 Blood Blood Culture - Preliminary Laboratory WBC 4.4 X10^3/uL (3.6-10.0) 12/28/19 05:28 RBC 2.30 X10^6/uL (3.5-5.4) L 12/28/19 05:28 Hgb 9.3 g/dL (12.0-16.0) L 12/28/19 05:28 Hct 27.0 % (36.0-47.0) L 12/28/19 05:28 MCV 117.1 fL (80.0-100.0) H 12/28/19 05:28 MCH 40.5 pg (27.0-34.0) H 12/28/19 05:28 MCHC 34.6 g/dL (33.0-35.0) 12/28/19 05:28 RDW 14.3 % (11.6-16.5) 12/28/19 05:28 Plt Count 34 X10^3/uL (150.0-450.0) L 12/28/19 05:28 Plt Count Comment Decreased (ADEQUATE) A 12/28/19 05:28 MPV 11.3 fL (7.4-11.0) H 12/28/19 05:28 Neut % (Auto) 80.4 % (42.0-75.0) H 12/28/19 05:28 Lymph % (Auto) 8.7 % (21.0-51.0) L 12/28/19 05:28 [place] % (Auto) 10.1 % (0.0-13.0) 12/28/19 05:28 Eos % (Auto) 0.6 % (0.9-2.9) L 12/28/19 05:28 Baso % (Auto) 0.2 % (0.2-1.0) 12/28/19 05:28 Neut # (Auto) 3.6 x10^3/uL (2.2-4.8) 12/28/19 05:28 Lymph # (Auto) 0.4 X10^3/uL (1.3-2.9) L 12/28/19 05:28 [place] # (Auto) 0.4 x10^3/uL (0.3-0.8) 12/28/19 05:28 Eos # (Auto) 0.0 x10^3/uL (0.0-0.2) 12/28/19 05:28 Baso # (Auto) 0.0 X10^3/uL (0.0-0.1) 12/28/19 05:28 Absolute Nucleated RBC 0.0 /100WBC 12/28/19 05:28 Total Counted 100 12/25/19 05:55 Neutrophils % (Manual) 83 % (39-76) H 12/25/19 05:55 Band Neutrophils % 2 % (0-10) 12/25/19 05:55 Lymphocytes % (Manual) 9 % (13-43) L 12/25/19 05:55 Monocytes % (Manual) 6 % (4-9) 12/25/19 05:55 Plt Morphology Comment Normal (NORMAL) 12/28/19 05:28 RBC Morphology Abnormal (NORMAL) A 12/28/19 05:28 Macrocytosis 2+ A 12/28/19 05:28 PT 13.0 SECONDS (11.8-14.3) 12/24/19 15:40 INR Target Range - 12/24/19 15:40 INR 1.01 (0.8-1.3) 12/24/19 15:40 Sodium 138 mmol/L (136-145) 12/28/19 05:28 Corrected Sodium TNP 12/28/19 05:28 Potassium 4.3 mmol/L (3.5-5.1) 12/28/19 05:28 Chloride 109 mmol/L (98-107) H 12/28/19 05:28 Carbon Dioxide 21.7 mmol/L (21-32) 12/28/19 05:28 BUN 20 mg/dL (7-18) H 12/28/19 05:28 Creatinine 1.76 mg/dL (0.55-1.02) H 12/28/19 05:28 Est GFR (MDRD) Af Amer 36 (>60) L 12/28/19 05:28 Est GFR (MDRD) Non-Af 30 (>60) L 12/28/19 05:28 Glucose 68 mg/dL (65-99) 12/28/19 05:28 Lactic Acid 1.3 mmol/L (0.4-2.0) 12/25/19 21:13 Calcium 8.8 mg/dL (8.5-10.1) 12/28/19 05:28 Corrected Calcium 10.2 mg/dL (8.5-10.1) H 12/28/19 05:28 Magnesium 2.2 mg/dL (1.7-2.9) 12/25/19 05:55 Total Bilirubin 0.50 mg/dL (0.2-1.0) 12/28/19 05:28 AST 16 Units/L (15-37) 12/28/19 05:28 ALT 11 Units/L (12-78) L 12/28/19 05:28 Alkaline Phosphatase 54 Units/L (46-116) 12/28/19 05:28 Total Protein 5.0 g/dL (6.4-8.2) L 12/28/19 05:28 Albumin 2.3 g/dL (3.4-5.0) L 12/28/19 05:28 Globulin 2.7 g/dL (2.5-4.5) 12/28/19 05:28 Albumin/Globulin Ratio 0.9 Ratio (1.1-2.1) L 12/28/19 05:28 Lipase 46 Units/L (73-393) L 12/24/19 15:40 Specimen Type Catherized urine 12/24/19 15:10 Urine Color Yellow (YELLOW) 12/24/19 15:10 Urine Appearance Slightly hazy (CLEAR) 12/24/19 15:10 Urine pH 5.0 (5.0 - 8.0) 12/24/19 15:10 Ur Specific [place] 1.015 (1.000-1.030) 12/24/19 15:10 Urine Protein 3+ (NEGATIVE) 12/24/19 15:10 Urine Glucose (UA) Negative (NEGATIVE) 12/24/19 15:10 Urine Ketones Negative (NEGATIVE) 12/24/19 15:10 Urine Occult Blood 4+ (NEGATIVE) 12/24/19 15:10 Urine Nitrite Negative (NEGATIVE) 12/24/19 15:10 Urine Bilirubin Negative (NEGATIVE) 12/24/19 15:10 Urine Urobilinogen 1+ (NORMAL) 12/24/19 15:10 Ur Leukocyte Esterase 3+ (NEGATIVE) 12/24/19 15:10 Urine RBC 5-10 /HPF (0-3) A 12/24/19 15:10 Urine WBC Tntc /HPF (0-5) A 12/24/19 15:10 Ur Squamous Epith Cells Negative /HPF (NEGATIVE) 12/24/19 15:10 Urine Bacteria 1+ /HPF (NEGATIVE) 12/24/19 15:10 Ur Culture Indicated? Yes/culture set up 12/24/19 15:10 SARS-CoV-2 (PCR) Negative (NEGATIVE) 12/24/19 16:50 - Plan (1) Sepsis due to urinary tract infection Status: Acute Plan: NS WITH 20MEQ KCL AT 125ML/HR, INVANZ 0.5G IV DAILY, ZOFRAN 4MG IV Q4H PRN, AND HOME MEDICATIONS OF XANAX, GABAPENTIN, LEXAPRO, SYNTHROID, WERE RESUMED. (2) Dehydration Status: Acute (3) Hypokalemia Status: Acute (4) Anemia Status: Acute Qualifiers: Anemia type: iron deficiency Iron deficiency anemia type: unspecified iron deficiency Qualified Code(s): D50.9 - Iron deficiency anemia, unspecified Plan: BLOOD SMEAR FOR PATHOLGY, STOOL FOR OCCULT BLOOD, CONTINUE TO MONITOR
[2019-12-29] MEDS: NS + KCL 20 MEQ/L 1,000 ML IV SCH ×3 (05:16→21:07)
[2019-12-29] MEDS: SYNTHROID 75 mcg TAB PO SCH (05:17)
[2019-12-29 06:12] LABS: BASOPHILS % (AUTO) 0.2 % (0.2-1.0); EOSINOPHILS # (AUTO) 0.1 x10^3/uL (0.0-0.2); EOSINOPHILS % (AUTO) 1.2 % (0.9-2.9); HEMATOCRIT 27.5 % (36.0-47.0); HEMOGLOBIN 9.5 g/dL (12.0-16.0); LYMPHOCYTES # (AUTO) 0.6 X10^3/uL (1.3-2.9); LYMPHOCYTES % (AUTO) 11.9 % (21.0-51.0); MEAN CORPUSCULAR HEMOGLOBIN 40.7 pg (27.0-34.0); MEAN CORPUSCULAR HGB CONC 34.5 g/dL (33.0-35.0); MEAN CORPUSCULAR VOLUME 117.9 fL (80.0-100.0); MEAN PLATELET VOLUME 10.3 fL (7.4-11.0); MONOCYTES # (AUTO) 0.6 x10^3/uL (0.3-0.8); MONOCYTES % (AUTO) 13.5 % (0.0-13.0); NEUTROPHILS # (AUTO) 3.4 x10^3/uL (2.2-4.8); NEUTROPHILS % (AUTO) 73.2 % (42.0-75.0); PLATELET COUNT 29 X10^3/uL (150.0-450.0); RED BLOOD COUNT 2.34 X10^6/uL (3.5-5.4); RED CELL DISTRIBUTION WIDTH 14.1 % (11.6-16.5); WHITE BLOOD COUNT 4.7 X10^3/uL (3.6-10.0)
[2019-12-29 06:38] LABS: ALANINE AMINOTRANSFERASE 11 Units/L (12-78); ALBUMIN 2.7 g/dL (3.4-5.0); ALKALINE PHOSPHATASE 51 Units/L (46-116); ASPARTATE AMINO TRANSFERASE 18 Units/L (15-37); BLOOD UREA NITROGEN 21 mg/dL (7-18); CALCIUM 9.3 mg/dL (8.5-10.1); CARBON DIOXIDE 18.8 mmol/L (21-32); CHLORIDE 112 mmol/L (98-107); COR CA(FOR HYPOALB) 10.3 mg/dL (8.5-10.1); SODIUM 141 mmol/L (136-145); TOTAL PROTEIN 5.4 g/dL (6.4-8.2); eGFR NON BLACK RACES 31 (>60)
[2019-12-29 07:16] LABS: PLATELET MORPHOLOGY COMMENT NORMAL (NORMAL)
[2019-12-29] MEDS ORDERED: LEXAPRO ONE (08:16)
[2019-12-29] MEDS: ALBUMIN HUMAN 25%- 100 ML 100 ML IV SCH (09:18)
[2019-12-29] MEDS: LINZESS PO SCH (09:19)
[2019-12-29] MEDS: NEURONTIN CAP 300 MG PO SCH ×2 (09:19→21:07)
[2019-12-29] MEDS: LEXAPRO PO SCH (09:20)
--- NOTE | 2019-12-29 10:31 | CT ---
HISTORYFREQUENT FALLS, AMSSTUDYBRAIN W/O CONCOMPARISON10/06/19TECHNIQUEMultiple helical images of the brain from the vertex to the occiput were obtained. Coronal and sagittal reformats were performed. Dose reduction techniques including Automated Exposure Control (AEC) and adjustment of mA and kV were utilized.FINDINGSFairly severe diffuse cerebral cortical atrophy with bilateral periventricular and deep white matter hypoattenuation, findings are nonspecific; however, most likely represent sequela of chronic microvascular disease. 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 [No acute intraparenchymal hemorrhage or mass can be identified.] [No extra-axial fluid collections are seen.] [No alteration in the attenuation of the brain parenchyma can be identified to suggest acute or subacute ischemic change.] [The ventricular system is symmetric and nondilated.] [The extracranial structures are grossly unremarkable.] Mild mucosal thickening of bilateral maxillary sinuses. Fluid opacification of bilateral mastoid air cells.IMPRESSIONFairly severe generalized cerebral atrophy with bilateral periventricular and deep white matter hypoattenuation is nonspecific however likely represents sequela of chronic microvascular ischemic disease.No acute intracranial hemorrhage.Evolution of remote infarct within the superior left cerebellar hemisphere.If persistent acute neurological deficits or unexplained changes in mentation consider correlation with brain MRI for improved characterization of acute/subacute ischemia.Mild bilateral maxillary sinus mucosal disease.Moderate opacification of bilateral mastoid air cells, correlate for signs of mastoiditis.Electronically signed by: YAYO LOCKWOOD (Dec 29, 2019 10:29:44)
[2019-12-29] MEDS ORDERED: INVANZ INJ 1 GM VIAL ONE (20:46)
[2019-12-29] MEDS ORDERED: NS 100 ML IV 200 ML IV ONE (20:46)
[2019-12-29] MEDS: INVANZ INJ 1 GM VIAL 0.5 GM in NS 100 ML IV + SPIKE MINIBAG* 100 ML IV SCH (21:06)
[2019-12-30] MEDS: NS + KCL 20 MEQ/L 1,000 ML IV SCH ×4 (02:33→21:52)
[2019-12-30 06:22] LABS: BASOPHILS % (AUTO) 0.3 % (0.2-1.0); EOSINOPHILS # (AUTO) 0.1 x10^3/uL (0.0-0.2); EOSINOPHILS % (AUTO) 1.6 % (0.9-2.9); HEMATOCRIT 25.6 % (36.0-47.0); HEMOGLOBIN 8.8 g/dL (12.0-16.0); LYMPHOCYTES # (AUTO) 0.7 X10^3/uL (1.3-2.9); LYMPHOCYTES % (AUTO) 15.9 % (21.0-51.0); MEAN CORPUSCULAR HEMOGLOBIN 40.4 pg (27.0-34.0); MEAN CORPUSCULAR HGB CONC 34.4 g/dL (33.0-35.0); MEAN CORPUSCULAR VOLUME 117.3 fL (80.0-100.0); MEAN PLATELET VOLUME 10.3 fL (7.4-11.0); MONOCYTES # (AUTO) 0.6 x10^3/uL (0.3-0.8); MONOCYTES % (AUTO) 13.6 % (0.0-13.0); NEUTROPHILS # (AUTO) 2.8 x10^3/uL (2.2-4.8); NEUTROPHILS % (AUTO) 68.6 % (42.0-75.0); PLATELET COUNT 35 X10^3/uL (150.0-450.0); RED BLOOD COUNT 2.18 X10^6/uL (3.5-5.4); RED CELL DISTRIBUTION WIDTH 14.1 % (11.6-16.5); WHITE BLOOD COUNT 4.2 X10^3/uL (3.6-10.0)
[2019-12-30] MEDS: SYNTHROID 75 mcg TAB PO SCH (06:34)
[2019-12-30 06:35] LABS: ALANINE AMINOTRANSFERASE 11 Units/L (12-78); ALBUMIN 2.7 g/dL (3.4-5.0); ALKALINE PHOSPHATASE 43 Units/L (46-116); ASPARTATE AMINO TRANSFERASE 15 Units/L (15-37); BLOOD UREA NITROGEN 14 mg/dL (7-18); CALCIUM 8.5 mg/dL (8.5-10.1); CARBON DIOXIDE 22.1 mmol/L (21-32); CHLORIDE 111 mmol/L (98-107); COR CA(FOR HYPOALB) 9.5 mg/dL (8.5-10.1); CREATININE 1.62 mg/dL (0.55-1.02); SODIUM 141 mmol/L (136-145); TOTAL PROTEIN 4.9 g/dL (6.4-8.2); eGFR NON BLACK RACES 33 (>60)
[2019-12-30 07:12] LABS: PLATELET MORPHOLOGY COMMENT NORMAL (NORMAL)
[2019-12-30] MEDS ORDERED: LEXAPRO ONE (08:19)
[2019-12-30] MEDS: ALBUMIN HUMAN 25%- 100 ML 100 ML IV SCH (09:16)
[2019-12-30] MEDS: LINZESS PO SCH (09:17)
[2019-12-30] MEDS: NEURONTIN CAP 300 MG PO SCH ×2 (09:17→20:47)
[2019-12-30] MEDS: LEXAPRO PO SCH (09:17)
--- NOTE | 2019-12-30 11:31 | PCM.PROG ---
Progress Note - Progress Note for Day of Date of Exam: 12/29/19 - Subjective Subjective: IS BEING TREATED FOR UROSEPSIS, DEHYDRATION, AND HYPOKALEMIA. TODAY, SHE IS ALERT, LYING IN BED ON MORNING ROUNDS. SHE CONTINUES WITH REPORTS OF LOWER ABDOMINAL PAIN AND WEAKNESS. STAFF REPORTS INCREASED CONFUSION TODAY. THEY ALSO REPORT THAT SHE HAS BEEN UNSTEADY WHEN AMBULATING. ON EXAMINATION, HEART IS REGULAR IN RATE AND RHYTHM. BILATERAL LUNGS ARE NOTED WITH DIMINISHED LUNG SOUNDS THROUGHOUT. ABDOMEN IS ROUND, SOFT, AND NOTED WITH SUPRAPUBIC TENDERNESS TO PALPATION. NORMAL BOWEL SOUNDS ARE NOTED IN ALL QUADRANTS. HER VITALS THIS MORNING ARE: 100.1-97-20-97%-138/93. LABS WERE OBTAINED. ABNORMAL LAB VALUES INCLUDE THE FOLLOWING: RBC 2.34, HGB 9.5, HCT 27.5, PLT COUNT 29, CH LORIDE 112, CARBON DIOXIDE 18.8, BUN 21, CREATININE 1.70, ALT 11, TOTAL PROTEIN 5.4, ALBUMIN 2.7. URINE AND BLOOD CULTURES REPORT GROWTH OF E.COLI. SHE IS CURRENTLY RECEIVING NS WITH 20MEQ KCL AT 125ML/HR, ALBUMIN 25% IV DAILY, INVANZ 0.5G IV DAILY, ZOFRAN 4MG IV Q4H PRN, AND HOME MEDICATIONS OF XANAX, GABAPENTIN, LEXAPRO, SYNTHROID, WERE RESUMED. WE WILL CONTINUE WITH CURRENT PLAN OF CARE TODAY AND OBTAIN A BRAIN CT WITHOUT CONTRAST. OTHERWISE, WE WILL FOLLOW UP WITH AM LABS AND CONTINUE TO MONITOR. - Past Medical Family Social History Past Med/Fam/Surg Hx: No changes since H&P Allergies: Allergies codeine Allergy (Verified 05/20/18 12:30) diphenhydramine [From Benadryl] Allergy (Verified 05/20/18 12:30) ibuprofen Allergy (Verified 05/20/18 12:30) morphine Allergy (Verified 05/20/18 12:30) Penicillins Allergy (Verified 05/20/18 12:30) promethazine [From Phenergan] Allergy (Verified 05/20/18 12:30) - Review of Systems ROS: No change since H&P - Vital Signs and I&O's Vital Signs: Temperature 99.8 F Pulse Rate [Right Radial] 89 Pulse Rate 83 Respiratory Rate 20 Blood Pressure [Left Arm] 144/65 Blood Pressure [Right Arm] 109/52 Blood Pressure 103/59 O2 Sat by Pulse Oximetry 95 Intake and Output: Intake & Output 12/27/19 12/28/19 12/29/19 12/30/19 11:59 11:59 11:59 11:59 Intake Total 3180 / 3180 1682 / 1682 1830 / 1830 1440 / 1440 Balance 3180 / 3180 1682 / 1682 1830 / 1830 1440 / 1440 - Physical Exam Oriented: Normal Eyes: Normal Ear: Normal Nose: Normal Throat: Normal Respiratory: Generalized, Diminished Cardiovascular: Normal : Normal, Hematuria Tenderness: Suprapubic, Moderate. negative: Rebound, Guarding, Rigidity Skin: Normal Musculoskeletal: Normal Psychiatric: Normal Mood Description: Calm Affect: Normal Speech Pattern: Clear - Laboratory and Diagnostics Result Diagrams: 12/30/19 05:51 12/30/19 05:51 Labs: 12/24/19 15:44 Blood Blood Culture - Final 12/25/19 16:25 Blood Blood Culture - Final Escherichia Coli 12/25/19 16:15 Blood Blood Culture - Final Escherichia Coli 12/24/19 15:40 Blood Blood Culture - Final Escherichia Coli 12/24/19 15:10 Urine,Catheterized Urine Culture - Final Escherichia Coli Laboratory WBC 4.2 X10^3/uL (3.6-10.0) 12/30/19 05:51 RBC 2.18 X10^6/uL (3.5-5.4) L 12/30/19 05:51 Hgb 8.8 g/dL (12.0-16.0) L 12/30/19 05:51 Hct 25.6 % (36.0-47.0) L 12/30/19 05:51 MCV 117.3 fL (80.0-100.0) H 12/30/19 05:51 MCH 40.4 pg (27.0-34.0) H 12/30/19 05:51 MCHC 34.4 g/dL (33.0-35.0) 12/30/19 05:51 RDW 14.1 % (11.6-16.5) 12/30/19 05:51 Plt Count 35 X10^3/uL (150.0-450.0) L 12/30/19 05:51 Plt Count Comment Decreased (ADEQUATE) A 12/30/19 05:51 MPV 10.3 fL (7.4-11.0) 12/30/19 05:51 Neut % (Auto) 68.6 % (42.0-75.0) 12/30/19 05:51 Lymph % (Auto) 15.9 % (21.0-51.0) L 12/30/19 05:51 [place] % (Auto) 13.6 % (0.0-13.0) H 12/30/19 05:51 Eos % (Auto) 1.6 % (0.9-2.9) 12/30/19 05:51 Baso % (Auto) 0.3 % (0.2-1.0) 12/30/19 05:51 Neut # (Auto) 2.8 x10^3/uL (2.2-4.8) 12/30/19 05:51 Lymph # (Auto) 0.7 X10^3/uL (1.3-2.9) L 12/30/19 05:51 [place] # (Auto) 0.6 x10^3/uL (0.3-0.8) 12/30/19 05:51 Eos # (Auto) 0.1 x10^3/uL (0.0-0.2) 12/30/19 05:51 Baso # (Auto) 0.0 X10^3/uL (0.0-0.1) 12/30/19 05:51 Absolute Nucleated RBC 0.1 /100WBC 12/30/19 05:51 Total Counted 100 12/25/19 05:55 Neutrophils % (Manual) 83 % (39-76) H 12/25/19 05:55 Band Neutrophils % 2 % (0-10) 12/25/19 05:55 Lymphocytes % (Manual) 9 % (13-43) L 12/25/19 05:55 Monocytes % (Manual) 6 % (4-9) 12/25/19 05:55 Plt Morphology Comment Normal (NORMAL) 12/30/19 05:51 RBC Morphology Abnormal (NORMAL) A 12/30/19 05:51 Macrocytosis 3+ A 12/30/19 05:51 PT 13.0 SECONDS (11.8-14.3) 12/24/19 15:40 INR Target Range - 12/24/19 15:40 INR 1.01 (0.8-1.3) 12/24/19 15:40 Sodium 141 mmol/L (136-145) 12/30/19 05:51 Corrected Sodium TNP 12/30/19 05:51 Potassium 4.3 mmol/L (3.5-5.1) 12/30/19 05:51 Chloride 111 mmol/L (98-107) H 12/30/19 05:51 Carbon Dioxide 22.1 mmol/L (21-32) 12/30/19 05:51 BUN 14 mg/dL (7-18) 12/30/19 05:51 Creatinine 1.62 mg/dL (0.55-1.02) H 12/30/19 05:51 Est GFR (MDRD) Af Amer 40 (>60) L 12/30/19 05:51 Est GFR (MDRD) Non-Af 33 (>60) L 12/30/19 05:51 Glucose 83 mg/dL (65-99) 12/30/19 05:51 Lactic Acid 1.3 mmol/L (0.4-2.0) 12/25/19 21:13 Calcium 8.5 mg/dL (8.5-10.1) 12/30/19 05:51 Corrected Calcium 9.5 mg/dL (8.5-10.1) 12/30/19 05:51 Magnesium 2.2 mg/dL (1.7-2.9) 12/25/19 05:55 Total Bilirubin 0.60 mg/dL (0.2-1.0) 12/30/19 05:51 AST 15 Units/L (15-37) 12/30/19 05:51 ALT 11 Units/L (12-78) L 12/30/19 05:51 Alkaline Phosphatase 43 Units/L (46-116) L 12/30/19 05:51 Total Protein 4.9 g/dL (6.4-8.2) L 12/30/19 05:51 Albumin 2.7 g/dL (3.4-5.0) L 12/30/19 05:51 Globulin 2.2 g/dL (2.5-4.5) L 12/30/19 05:51 Albumin/Globulin Ratio 1.2 Ratio (1.1-2.1) 12/30/19 05:51 Lipase 46 Units/L (73-393) L 12/24/19 15:40 Specimen Type Catherized urine 12/24/19 15:10 Urine Color Yellow (YELLOW) 12/24/19 15:10 Urine Appearance Slightly hazy (CLEAR) 12/24/19 15:10 Urine pH 5.0 (5.0 - 8.0) 12/24/19 15:10 Ur Specific [place] 1.015 (1.000-1.030) 12/24/19 15:10 Urine Protein 3+ (NEGATIVE) 12/24/19 15:10 Urine Glucose (UA) Negative (NEGATIVE) 12/24/19 15:10 Urine Ketones Negative (NEGATIVE) 12/24/19 15:10 Urine Occult Blood 4+ (NEGATIVE) 12/24/19 15:10 Urine Nitrite Negative (NEGATIVE) 12/24/19 15:10 Urine Bilirubin Negative (NEGATIVE) 12/24/19 15:10 Urine Urobilinogen 1+ (NORMAL) 12/24/19 15:10 Ur Leukocyte Esterase 3+ (NEGATIVE) 12/24/19 15:10 Urine RBC 5-10 /HPF (0-3) A 12/24/19 15:10 Urine WBC Tntc /HPF (0-5) A 12/24/19 15:10 Ur Squamous Epith Cells Negative /HPF (NEGATIVE) 12/24/19 15:10 Urine Bacteria 1+ /HPF (NEGATIVE) 12/24/19 15:10 Ur Culture Indicated? Yes/culture set up 12/24/19 15:10 SARS-CoV-2 (PCR) Negative (NEGATIVE) 12/24/19 16:50 - Plan (1) Sepsis due to urinary tract infection Status: Acute Plan: NS WITH 20MEQ KCL AT 125ML/HR, INVANZ 0.5G IV DAILY, ZOFRAN 4MG IV Q4H PRN, AND HOME MEDICATIONS OF XANAX, GABAPENTIN, LEXAPRO, SYNTHROID, WERE RESUMED. (2) Dehydration Status: Acute (3) Hypokalemia Status: Acute (4) Anemia Status: Acute Qualifiers: Anemia type: iron deficiency Iron deficiency anemia type: unspecified iron deficiency Qualified Code(s): D50.9 - Iron deficiency anemia, unspecified Plan: BLOOD SMEAR FOR PATHOLGY, STOOL FOR OCCULT BLOOD, CONTINUE TO MONITOR
[2019-12-30] MEDS: ECOTRIN TAB 325 MG PO SCH (12:44)
--- NOTE | 2019-12-30 15:02 | DR.DIZZY ---
HPI Time seen Time Seen by Provider: 12/24/19 15:00 PCP Primary Care Physician: MONICA Complaint Chief Complaint:: weakness, lost control of Bowels while "sleeping" , family states she is becoming increasingly confused, states she has had a UTI for 2 m [facility] COVID-19 Coronavirus risk:travel/contact w/high risk person: No Has patient experienced Coronavirus symptoms: Yes Coronavirus symptoms experienced: Fever Source History Provided: Patient and EMS Mode of Arrival Mode of Arrival: Stretcher Timing Onset of Chief Complaint: 12/22/19 Onset of Symptoms Start Date: 12/22/19 Location of Weakness Weakness Location: Generalized Context History of: None Stroke Symptoms: None Associated signs and symptoms Associated Signs and Symptoms: Weak, Fever and Nausea PMH PMH Past Medical History: Yes Past Medical History: Anxiety, CHF, COPD, Coronary Artery Disease, Hypertension and MA Past Surgical History: Yes Surgical History: Angioplasty/Stents, Cholecystectomy, [employer] Surgery, Hysterectomy and Ortho Surgery Past Surgical History Comment: Cardiac Stents Family History History of Family Medical Conditions: Yes Family Medical History: MA and Hypertension Social History Does patient currently use any type of tobacco product: No Does any household member use tobacco: No Alcohol Use: None Do you use any recreational Drugs:: No Lives With: Family Lives Where: Home Travel Risk Coronavirus risk:travel/contact w/high risk person: No Has patient experienced Coronavirus symptoms: Yes Coronavirus symptoms experienced: Fever Infectious screening In the last 2 months have you had wt loss of >10#?: NO Have you had fever, night sweats or hemotysis?: No Have you traveled outside the country in the last 6 months?: No Isolation: Standard PE Vital Signs Vitals: Temperature 99.5 F Pulse Rate 83 Respiratory Rate 19 Blood Pressure [Left Arm] 152/79 Blood Pressure [Right Arm] 131/62 Blood Pressure 103/59 O2 Sat by Pulse Oximetry 99 ROR Labs Reviewed Result Diagrams: 12/30/19 05:51 12/30/19 05:51 Laboratory: 12/24/19 15:44 Blood Blood Culture - Final 12/24/19 15:40 Blood Blood Culture - Final Escherichia Coli 12/24/19 15:10 Urine,Catheterized Urine Culture - Final Escherichia Coli WBC 11.5 X10^3/uL (3.6-10.0) H 12/24/19 15:40 RBC 3.37 X10^6/uL (3.5-5.4) L 12/24/19 15:40 Hgb 13.6 g/dL (12.0-16.0) 12/24/19 15:40 Hct 39.1 % (36.0-47.0) 12/24/19 15:40 MCV 116.3 fL (80.0-100.0) H 12/24/19 15:40 MCH 40.4 pg (27.0-34.0) H 12/24/19 15:40 MCHC 34.8 g/dL (33.0-35.0) 12/24/19 15:40 RDW 14.3 % (11.6-16.5) 12/24/19 15:40 Plt Count 107 X10^3/uL (150.0-450.0) L 12/24/19 15:40 Plt Count Comment Decreased (ADEQUATE) A 12/24/19 15:40 MPV 11.1 fL (7.4-11.0) H 12/24/19 15:40 Neut % (Auto) 91.8 % (42.0-75.0) H 12/24/19 15:40 Lymph % (Auto) 5.0 % (21.0-51.0) L 12/24/19 15:40 [place] % (Auto) 3.0 % (0.0-13.0) 12/24/19 15:40 Eos % (Auto) 0.0 % (0.9-2.9) L 12/24/19 15:40 Baso % (Auto) 0.2 % (0.2-1.0) 12/24/19 15:40 Neut # (Auto) 10.6 x10^3/uL (2.2-4.8) H 12/24/19 15:40 Lymph # (Auto) 0.6 X10^3/uL (1.3-2.9) L 12/24/19 15:40 [place] # (Auto) 0.3 x10^3/uL (0.3-0.8) 12/24/19 15:40 Eos # (Auto) 0.0 x10^3/uL (0.0-0.2) 12/24/19 15:40 Baso # (Auto) 0.0 X10^3/uL (0.0-0.1) 12/24/19 15:40 Absolute Nucleated RBC 0.0 /100WBC 12/24/19 15:40 Total Counted 100 12/24/19 15:40 Neutrophils % (Manual) 82 % (39-76) H 12/24/19 15:40 Band Neutrophils % 6 % (0-10) 12/24/19 15:40 Lymphocytes % (Manual) 8 % (13-43) L 12/24/19 15:40 Monocytes % (Manual) 4 % (4-9) 12/24/19 15:40 Plt Morphology Comment Normal (NORMAL) 12/24/19 15:40 RBC Morphology Abnormal (NORMAL) A 12/24/19 15:40 Macrocytosis 3+ A 12/24/19 15:40 PT 13.0 SECONDS (11.8-14.3) 12/24/19 15:40 INR Target Range - 12/24/19 15:40 INR 1.01 (0.8-1.3) 12/24/19 15:40 Sodium 133 mmol/L (136-145) L 12/24/19 15:40 Corrected Sodium TNP 12/24/19 15:40 Potassium 2.7 mmol/L (3.5-5.1) L* 12/24/19 15:40 Chloride 92 mmol/L (98-107) L 12/24/19 15:40 Carbon Dioxide 29.7 mmol/L (21-32) 12/24/19 15:40 BUN 28 mg/dL (7-18) H 12/24/19 15:40 Creatinine 2.46 mg/dL (0.55-1.02) H 12/24/19 15:40 Est GFR (MDRD) Af Amer 25 (>60) L 12/24/19 15:40 Est GFR (MDRD) Non-Af 20 (>60) L 12/24/19 15:40 Glucose 100 mg/dL (65-99) H 12/24/19 15:40 Lactic Acid 2.9 mmol/L (0.4-2.0) H 12/24/19 15:40 Calcium 9.9 mg/dL (8.5-10.1) 12/24/19 15:40 Corrected Calcium TNP 12/24/19 15:40 Magnesium 1.7 mg/dL (1.7-2.9) 12/24/19 15:40 Total Bilirubin 1.40 mg/dL (0.2-1.0) H 12/24/19 15:40 AST 19 Units/L (15-37) 12/24/19 15:40 ALT 12 Units/L (12-78) 12/24/19 15:40 Alkaline Phosphatase 112 Units/L (46-116) 12/24/19 15:40 Total Protein 7.1 g/dL (6.4-8.2) 12/24/19 15:40 Albumin 3.4 g/dL (3.4-5.0) 12/24/19 15:40 Globulin 3.7 g/dL (2.5-4.5) 12/24/19 15:40 Albumin/Globulin Ratio 0.9 Ratio (1.1-2.1) L 12/24/19 15:40 Lipase 46 Units/L (73-393) L 12/24/19 15:40 Specimen Type Catherized urine 12/24/19 15:10 Urine Color Yellow (YELLOW) 12/24/19 15:10 Urine Appearance Slightly hazy (CLEAR) 12/24/19 15:10 Urine pH 5.0 (5.0 - 8.0) 12/24/19 15:10 Ur Specific [place] 1.015 (1.000-1.030) 12/24/19 15:10 Urine Protein 3+ (NEGATIVE) 12/24/19 15:10 Urine Glucose (UA) Negative (NEGATIVE) 12/24/19 15:10 Urine Ketones Negative (NEGATIVE) 12/24/19 15:10 Urine Occult Blood 4+ (NEGATIVE) 12/24/19 15:10 Urine Nitrite Negative (NEGATIVE) 12/24/19 15:10 Urine Bilirubin Negative (NEGATIVE) 12/24/19 15:10 Urine Urobilinogen 1+ (NORMAL) 12/24/19 15:10 Ur Leukocyte Esterase 3+ (NEGATIVE) 12/24/19 15:10 Urine RBC 5-10 /HPF (0-3) A 12/24/19 15:10 Urine WBC Tntc /HPF (0-5) A 12/24/19 15:10 Ur Squamous Epith Cells Negative /HPF (NEGATIVE) 12/24/19 15:10 Urine Bacteria 1+ /HPF (NEGATIVE) 12/24/19 15:10 Ur Culture Indicated? Yes/culture set up 12/24/19 15:10 SARS-CoV-2 (PCR) Negative (NEGATIVE) 12/24/19 16:50 Opioid Opioid Risk Tool Age (Savage box if 16-45): No History of Preadolescent Sexual Abuse: No Total: 0 Total Score Risk Category: Low Risk Copyright: Broderick predicting aberrant behaviors Diagnosis Discharge Problem: Sepsis due to urinary tract infection Instructions Instructions: Sepsis, Adult Urinary Tract Infection, Adult Arthritis, [id number] Hypertension, [id number] Urosepsis Dehydration, Elderly, [id number] Forms: Precautions for COVID19 Patient Portal Social Distancing
--- NOTE | 2019-12-30 20:44 | PCM.PROG ---
Progress Note - Progress Note for Day of Date of Exam: 12/30/19 - Subjective Subjective: IS BEING TREATED FOR UROSEPSIS, DEHYDRATION, AND HYPOKALEMIA. TODAY, SHE IS ALERT, LYING IN BED ON MORNING ROUNDS. SHE CONTINUES WITH REPORTS OF WEAKNESS. STAFF REPORTS THAT SHE CONTINUES WITH CONFUSION AT TIMES. THEY ALSO REPORT THAT SHE HAS BEEN UNSTEADY WHEN AMBULATING. ON EXAMINATION, HEART IS REGULAR IN RATE AND RHYTHM. BILATERAL LUNGS ARE NOTED WITH DIMINISHED LUNG SOUNDS THROUGHOUT. ABDOMEN IS ROUND, SOFT, AND NOTED WITH SUPRAPUBIC TENDERNESS TO PALPATION. NORMAL BOWEL SOUNDS ARE NOTED IN ALL QUADRANTS. HER VITALS THIS MORNING ARE: 99.5-86-20-97%-151/60. LABS WERE OBTAINED. ABNORMAL LAB VALUES INCLUDE THE FOLLOWING: RBC 2.18, HGB 8.8, HCT 25.6, PLT COUNT 35, CHLORIDE 111, CREATININE 1.62, ALT 11, ALK PHOS 43, TOTAL PROTEIN 4.9, ALBUMIN 2.7. URINE AND BLOOD CULTURES REPORT GROWTH OF E.COLI. A BRAIN CT WITHOUT CONTRAST WAS OBTAINED YESTERDAY AND REVEALED: Fairly severe generalized cerebral atrophy with bilateral periventricular and deep white matter hypoattenuation is nonspecific however likely represents sequela of chronic microvascular ischemic disease. No acute intracranial hemorrhage. 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 If persistent acute neurological deficits or unexplained changes in mentation consider correlation with brain MRI for improved characterization of acute/subacute ischemia. Mild bilateral maxillary s inus mucosal disease. Moderate opacification of bilateral mastoid air cells, correlate for signs of mastoiditis. SHE IS CURRENTLY RECEIVING NS WITH 20MEQ KCL AT 125ML/HR, ALBUMIN 25% IV DAILY, INVANZ 0.5G IV DAILY, ZOFRAN 4MG IV Q4H PRN, AND HOME MEDICATIONS OF XANAX, GABAPENTIN, LEXAPRO, SYNTHROID, WERE RESUMED. WE WILL CONTINUE WITH CURRENT PLAN OF CARE TODAY AND START ECOTRIN 325MG PO DAILY AND CRESTOR 10MG PO HS. OTHERWISE, WE WILL FOLLOW UP WITH AM LABS AND CONTINUE TO MONITOR. - Past Medical Family Social History Past Med/Fam/Surg Hx: No changes since H&P Allergies: Allergies codeine Allergy (Verified 05/20/18 12:30) diphenhydramine [From Benadryl] Allergy (Verified 05/20/18 12:30) ibuprofen Allergy (Verified 05/20/18 12:30) morphine Allergy (Verified 05/20/18 12:30) Penicillins Allergy (Verified 05/20/18 12:30) promethazine [From Phenergan] Allergy (Verified 05/20/18 12:30) - Review of Systems ROS: No change since H&P - Vital Signs and I&O's Vital Signs: Temperature 97.9 F Pulse Rate [Right Radial] 86 Pulse Rate 83 Respiratory Rate 20 Blood Pressure [Left Arm] 151/69 Blood Pressure [Right Arm] 109/52 Blood Pressure 103/59 O2 Sat by Pulse Oximetry 100 Intake and Output: Intake & Output 12/28/19 12/29/19 12/30/19 12/31/19 11:59 11:59 11:59 11:59 Intake Total 1682 / 1682 1830 / 1830 1440 / 1440 1245 / 1245 Balance 1682 / 1682 1830 / 1830 1440 / 1440 1245 / 1245 - Physical Exam Oriented: Normal Eyes: Normal Ear: Normal Nose: Normal Throat: Normal Respiratory: Generalized, Diminished Cardiovascular: Normal : Normal, Hematuria Tenderness: Suprapubic, Moderate. negative: Rebound, Guarding, Rigidity Skin: Normal Musculoskeletal: Normal Psychiatric: Normal Mood Description: Calm Affect: Normal Speech Pattern: Clear, Appropriate - Laboratory and Diagnostics Result Diagrams: 12/30/19 05:51 12/30/19 05:51 Labs: 12/24/19 15:44 Blood Blood Culture - Final 12/25/19 16:25 Blood Blood Culture - Final Escherichia Coli 12/25/19 16:15 Blood Blood Culture - Final Escherichia Coli 12/24/19 15:40 Blood Blood Culture - Final Escherichia Coli 12/24/19 15:10 Urine,Catheterized Urine Culture - Final Escherichia Coli Laboratory WBC 4.2 X10^3/uL (3.6-10.0) 12/30/19 05:51 RBC 2.18 X10^6/uL (3.5-5.4) L 12/30/19 05:51 Hgb 8.8 g/dL (12.0-16.0) L 12/30/19 05:51 Hct 25.6 % (36.0-47.0) L 12/30/19 05:51 MCV 117.3 fL (80.0-100.0) H 12/30/19 05:51 MCH 40.4 pg (27.0-34.0) H 12/30/19 05:51 MCHC 34.4 g/dL (33.0-35.0) 12/30/19 05:51 RDW 14.1 % (11.6-16.5) 12/30/19 05:51 Plt Count 35 X10^3/uL (150.0-450.0) L 12/30/19 05:51 Plt Count Comment Decreased (ADEQUATE) A 12/30/19 05:51 MPV 10.3 fL (7.4-11.0) 12/30/19 05:51 Neut % (Auto) 68.6 % (42.0-75.0) 12/30/19 05:51 Lymph % (Auto) 15.9 % (21.0-51.0) L 12/30/19 05:51 [place] % (Auto) 13.6 % (0.0-13.0) H 12/30/19 05:51 Eos % (Auto) 1.6 % (0.9-2.9) 12/30/19 05:51 Baso % (Auto) 0.3 % (0.2-1.0) 12/30/19 05:51 Neut # (Auto) 2.8 x10^3/uL (2.2-4.8) 12/30/19 05:51 Lymph # (Auto) 0.7 X10^3/uL (1.3-2.9) L 12/30/19 05:51 [place] # (Auto) 0.6 x10^3/uL (0.3-0.8) 12/30/19 05:51 Eos # (Auto) 0.1 x10^3/uL (0.0-0.2) 12/30/19 05:51 Baso # (Auto) 0.0 X10^3/uL (0.0-0.1) 12/30/19 05:51 Absolute Nucleated RBC 0.1 /100WBC 12/30/19 05:51 Total Counted 100 12/25/19 05:55 Neutrophils % (Manual) 83 % (39-76) H 12/25/19 05:55 Band Neutrophils % 2 % (0-10) 12/25/19 05:55 Lymphocytes % (Manual) 9 % (13-43) L 12/25/19 05:55 Monocytes % (Manual) 6 % (4-9) 12/25/19 05:55 Plt Morphology Comment Normal (NORMAL) 12/30/19 05:51 RBC Morphology Abnormal (NORMAL) A 12/30/19 05:51 Macrocytosis 3+ A 12/30/19 05:51 PT 13.0 SECONDS (11.8-14.3) 12/24/19 15:40 INR Target Range - 12/24/19 15:40 INR 1.01 (0.8-1.3) 12/24/19 15:40 Sodium 141 mmol/L (136-145) 12/30/19 05:51 Corrected Sodium TNP 12/30/19 05:51 Potassium 4.3 mmol/L (3.5-5.1) 12/30/19 05:51 Chloride 111 mmol/L (98-107) H 12/30/19 05:51 Carbon Dioxide 22.1 mmol/L (21-32) 12/30/19 05:51 BUN 14 mg/dL (7-18) 12/30/19 05:51 Creatinine 1.62 mg/dL (0.55-1.02) H 12/30/19 05:51 Est GFR (MDRD) Af Amer 40 (>60) L 12/30/19 05:51 Est GFR (MDRD) Non-Af 33 (>60) L 12/30/19 05:51 Glucose 83 mg/dL (65-99) 12/30/19 05:51 Lactic Acid 1.3 mmol/L (0.4-2.0) 12/25/19 21:13 Calcium 8.5 mg/dL (8.5-10.1) 12/30/19 05:51 Corrected Calcium 9.5 mg/dL (8.5-10.1) 12/30/19 05:51 Magnesium 2.2 mg/dL (1.7-2.9) 12/25/19 05:55 Total Bilirubin 0.60 mg/dL (0.2-1.0) 12/30/19 05:51 AST 15 Units/L (15-37) 12/30/19 05:51 ALT 11 Units/L (12-78) L 12/30/19 05:51 Alkaline Phosphatase 43 Units/L (46-116) L 12/30/19 05:51 Total Protein 4.9 g/dL (6.4-8.2) L 12/30/19 05:51 Albumin 2.7 g/dL (3.4-5.0) L 12/30/19 05:51 Globulin 2.2 g/dL (2.5-4.5) L 12/30/19 05:51 Albumin/Globulin Ratio 1.2 Ratio (1.1-2.1) 12/30/19 05:51 Lipase 46 Units/L (73-393) L 12/24/19 15:40 Specimen Type Catherized urine 12/24/19 15:10 Urine Color Yellow (YELLOW) 12/24/19 15:10 Urine Appearance Slightly hazy (CLEAR) 12/24/19 15:10 Urine pH 5.0 (5.0 - 8.0) 12/24/19 15:10 Ur Specific [place] 1.015 (1.000-1.030) 12/24/19 15:10 Urine Protein 3+ (NEGATIVE) 12/24/19 15:10 Urine Glucose (UA) Negative (NEGATIVE) 12/24/19 15:10 Urine Ketones Negative (NEGATIVE) 12/24/19 15:10 Urine Occult Blood 4+ (NEGATIVE) 12/24/19 15:10 Urine Nitrite Negative (NEGATIVE) 12/24/19 15:10 Urine Bilirubin Negative (NEGATIVE) 12/24/19 15:10 Urine Urobilinogen 1+ (NORMAL) 12/24/19 15:10 Ur Leukocyte Esterase 3+ (NEGATIVE) 12/24/19 15:10 Urine RBC 5-10 /HPF (0-3) A 12/24/19 15:10 Urine WBC Tntc /HPF (0-5) A 12/24/19 15:10 Ur Squamous Epith Cells Negative /HPF (NEGATIVE) 12/24/19 15:10 Urine Bacteria 1+ /HPF (NEGATIVE) 12/24/19 15:10 Ur Culture Indicated? Yes/culture set up 12/24/19 15:10 Stool Description 5 cc brn liquid 12/30/19 15:39 Stl Occult Blood (IFOB) Negative (NEGATIVE) 12/30/19 15:39 SARS-CoV-2 (PCR) Negative (NEGATIVE) 12/24/19 16:50 - Plan (1) Sepsis due to urinary tract infection Status: Acute Plan: NS WITH 20MEQ KCL AT 125ML/HR, INVANZ 0.5G IV DAILY, ZOFRAN 4MG IV Q4H PRN, AND HOME MEDICATIONS OF XANAX, GABAPENTIN, LEXAPRO, SYNTHROID, WERE RESUMED. (2) Dehydration Status: Acute (3) Hypokalemia Status: Acute (4) Anemia Status: Acute Qualifiers: Anemia type: iron deficiency Iron deficiency anemia type: unspecified iron deficiency Qualified Code(s): D50.9 - Iron deficiency anemia, unspecified Plan: BLOOD SMEAR FOR PATHOLGY, STOOL FOR OCCULT BLOOD, CONTINUE TO MONITOR
[2019-12-30] MEDS: INVANZ INJ 1 GM VIAL 0.5 GM in NS 100 ML IV + SPIKE MINIBAG* 100 ML IV SCH (20:47)
[2019-12-30] MEDS ORDERED: CRESTOR TAB 10 MG PO SCH (21:00)
[2019-12-31] MEDS: SYNTHROID 75 mcg TAB PO SCH (05:47)
[2019-12-31] MEDS: NS + KCL 20 MEQ/L 1,000 ML IV SCH ×2 (05:47→12:30)
[2019-12-31 06:11] LABS: ALANINE AMINOTRANSFERASE 12 Units/L (12-78); ALBUMIN 2.8 g/dL (3.4-5.0); ALKALINE PHOSPHATASE 39 Units/L (46-116); ASPARTATE AMINO TRANSFERASE 16 Units/L (15-37); BLOOD UREA NITROGEN 10 mg/dL (7-18); CALCIUM 8.5 mg/dL (8.5-10.1); CARBON DIOXIDE 19.5 mmol/L (21-32); CHLORIDE 112 mmol/L (98-107); COR CA(FOR HYPOALB) 9.5 mg/dL (8.5-10.1); CREATININE 1.33 mg/dL (0.55-1.02); SODIUM 139 mmol/L (136-145); eGFR NON BLACK RACES 42 (>60)
[2019-12-31 06:16] LABS: BASOPHILS % (AUTO) 0.3 % (0.2-1.0); EOSINOPHILS # (AUTO) 0.1 x10^3/uL (0.0-0.2); EOSINOPHILS % (AUTO) 1.9 % (0.9-2.9); HEMATOCRIT 24.2 % (36.0-47.0); HEMOGLOBIN 8.4 g/dL (12.0-16.0); LYMPHOCYTES # (AUTO) 0.6 X10^3/uL (1.3-2.9); LYMPHOCYTES % (AUTO) 14.9 % (21.0-51.0); MEAN CORPUSCULAR HEMOGLOBIN 40.3 pg (27.0-34.0); MEAN CORPUSCULAR HGB CONC 34.7 g/dL (33.0-35.0); MEAN CORPUSCULAR VOLUME 116.2 fL (80.0-100.0); MEAN PLATELET VOLUME 11.7 fL (7.4-11.0); MONOCYTES # (AUTO) 0.4 x10^3/uL (0.3-0.8); MONOCYTES % (AUTO) 8.5 % (0.0-13.0); NEUTROPHILS # (AUTO) 3.2 x10^3/uL (2.2-4.8); NEUTROPHILS % (AUTO) 74.4 % (42.0-75.0); PLATELET COUNT 47 X10^3/uL (150.0-450.0); RED BLOOD COUNT 2.09 X10^6/uL (3.5-5.4); RED CELL DISTRIBUTION WIDTH 14.5 % (11.6-16.5); WHITE BLOOD COUNT 4.3 X10^3/uL (3.6-10.0)
[2019-12-31 07:07] LABS: PLATELET MORPHOLOGY COMMENT NORMAL (NORMAL)
[2019-12-31] MEDS ORDERED: LEXAPRO ONE (09:10)
[2019-12-31] MEDS: ALBUMIN HUMAN 25%- 100 ML 100 ML IV SCH (09:38)
[2019-12-31] MEDS: NEURONTIN CAP 300 MG PO SCH (09:41)
[2019-12-31] MEDS: LINZESS PO SCH (09:42)
[2019-12-31] MEDS: ECOTRIN TAB 325 MG PO SCH (09:43)
[2019-12-31] MEDS: LEXAPRO PO SCH (09:43)
[2019-12-31 16:54] VITALS: BP 138/67
[2019-12-31] MEDS ORDERED: INVANZ INJ 1 GM VIAL 1 GM in NS 100 ML IV + SPIKE MINIBAG* 100 ML IV SCH (21:00)
== END 2019-12-31 17:05 | disposition home health service (06) | DRG 872 ==
LOC: ER 14:32 → MED/SURG 18:46
PROVIDERS: ADMIT Internal Medicine; ATTEND Internal Medicine
CPT/HCPCS: 36415; 70450; 71010; 71045; 80053; 81001; 82150; 82270; 82550; 82553; 83605; 83690; 83735; 84132; 84484; 85025; 85060; 85610; 85730; 87040; 87077; 87086; 87088; 87186; 87635; 92610; 93005; 93880; 94760; 96365; 96367; 96374; 96375; 97110; 97116; 97162; 97530; 99284; A4216; A4222; J0713; J1335; J1956; J2405; J3475; J3490; J7030; J7050; P9047

== ENCOUNTER 2019-12-31 21:59 | Inpatient (IN) ==
--- NOTE | 2019-12-31 23:20 | DR.GENAD ---
HPI - PCP Primary Care Physician: MONICA - Complaint/Symptoms Chief Complaint Doctors Comments: Patient discharged from hospital today with generalized weakness and not being able to walk. Patient still complains of not being able to walk or do for herself. States she is a patient of Dr. Harry and she smokes 1/2 pack cigarette daily.. she denies chest pain or SOB. She denies alcohol usage. Patient states she do not want to go to the senior living. States she will shot herself before she goes to the senior living. States she has a sister in [place] that she can live with. Chief Complaint:: EMS STATES THAT FAMILY INFORMED THEM THAT PT WAS DISCHARGED TODAY FROM THE HOSPITAL WHERE SHE WAS PREVIOUSLY ADMITTED WITH GENERALIZED WEAKNESS AND UTI. PT CONTINUES TO HAVE GENERALIZED WEAKNESS, AND GENERALIZED PAIN. ALSO FAMILY REPORTS THAT PT IS INCONTINENT OF BOWEL AND BLADDER. Self Treatment fo Chief Complaint: NONE - COVID-19 Coronavirus risk:travel/contact w/high risk person: Yes Has patient experienced Coronavirus symptoms: Yes - Nurses notes reviewed Nurses Notes Review: Yes - Source History Provided: Patient, Family Member, EMS - Mode of Arrival Mode of Arrival: EMS - Timing Onset of Chief Complaint: 12/31/19 Came on: Gradually - Duration Duration: Unknown - Location Location: weakness - Severity Severity: Moderate - Modifying Factors Worsens:: nothing Improves:: nothing PMH - PMH Past Medical History: Yes Past Medical History: OR, Coronary Artery Disease, Hypertension, Anxiety, COPD, CHF Past Surgical History: Yes Surgical History: Angioplasty/Stents, Cholecystectomy, HOSPICE RN Surgery, Hysterectomy, Ortho Surgery - Family History History of Family Medical Conditions: Yes Family Medical History: OR, Hypertension - Social History Does patient currently use any type of tobacco product: No Have you used tobacco products in the last 12 months: No Type of Tobacco Use: None Alcohol Use: None Do you use any recreational Drugs:: No Lives With: Alone - infectious screening In the last 2 months have you had wt loss of >10#?: NO Have you had fever, night sweats or hemotysis?: No Have you traveled outside the country in the last 6 months?: No Isolation: Standard ROS - Review of Systems Constitutional: No Symptoms Reported, Weakness Eyes: No Symptoms Reported ENTM: No Symptoms Reported Respiratoy: No Symptoms Reported Cardiovascular: No Symptoms Reported. negative: See HPI, Chest Pain, Edema, Palpitations, Syncope, Cyanosis, Skin Mottling, Other Gastrointestinal/Abdominal: No Symptoms Reported, Abdominal Pain. negative: See HPI, Constipation, Diarrhea, Nausea, Vomiting, Food Intolerance, Other Genitourinary: No Symptoms Reported Neurological: No Symptoms Reported, Problems Walking Musculoskeletal: No Symptoms Reported Integumentary: No Symptoms Reported Hematologic/Lymphatic: No Symptoms Reported Endocrine: No Symptoms Reported Psychiatric: No Symptoms Reported. negative: See HPI, Anxiety, Depression, Hallucinations, Excessive crying, Suicidal, Other PE - General Limitations: No Limitations General Appearance: Alert, In No Apparent Distress - Head Head Exam: Normal Inspection, Atraumatic, Normocephalic - Eyes Eye exam: Normal Appearance, PERRL, EOMI. negative: Scleral Icterus, Conjunctival Injection, Nystagmus, Miosis, Mydrasis, Periorbital Swelling, Periorbital Tenderness, Other - ENT ENT Exam: Normal Exam, Normal Oropharynx, Normal External Ear Exam, Mucous Membranes Moist, TM's Normal Bilaterally External Ear Exam: Normal External Inspection TM/Canal Exam: Bilateral Normal Nose Exam: Normal Nose Exam Mouth Exam: Normal Inspection. negative: Drooling, Trismus, Lip Swelling, Tongue Elevation, Tongue Swelling, Laceration, Other Throat Exam: Normal Inspection - Neck Neck Exam: Normal Inspection, Full ROM, Trachea Midline. negative: Tenderness, Meningismus, Lymphadenopathy, Thyromegaly, Other - Chest Chest Inspection: Normal Inspection, Symmetric Chest Wall Rise. negative: Tenderness, Rash, Abscess, Other - Respiratory Respiratory Exam: Normal Lung Sounds Bilat Respiratory Exam: Bilateral Clear to Auscultation - Cardiovascular Cardiovascular Exam: Regular Rate, Normal Rhythm, Normal Heart Sounds - Abdominal Exam Abdominal Exam: Normal Inspection, Normal Bowel Sounds, Soft. negative: Distention, Tenderness, Guarding, Rebound, Rigidity, Dimnished Bowel Sounds, Hyperactive Bowel Sounds, Hypoactive Bowel Sounds, Organomegaly, Trauma, Inc ision, Ascites, Mass, Bruit, Pulsatile Mass, Hernia, Other Abdominal Tenderness: negative: RUQ, RLQ, LUQ, LLQ, Epigastrium, Suprapubic, Diffuse, Mild, Moderate, Severe, Other - Extremities Extremities Exam: Normal Inspection, Full ROM, Normal Capillary Refill. negative: Tenderness, Edema, Joint Swelling, Calf Tenderness, Other - Back Back Exam: Normal Inspection, Full ROM. negative: Tenderness, (R) CVA Tenderness, (L) CVA Tenderness, Muscle Spasm, Paraspinal Tenderness, Vertebral Tenderness, Rashes, (R) Sciatic Notch Tenderness, (L) Sciatic Notch Tendern, (R) Straight Leg Raise, (L) Straight Leg Raise, Other - Neurologic Neurological Exam: Alert, Oriented X3, CN II-XII Intact, Reflexes Normal. negative: Normal Gait (gait not tested) - Psychiatric Psychiatric Exam: Normal Affect, Normal Mood - Skin Skin Exam: Warm, Dry, Intact, Normal Color - Vital Signs Vitals: Temperature 97.7 F Pulse Rate [Left] 83 Pulse Rate 84 Respiratory Rate 17 Blood Pressure [Left Arm] 174/79 Blood Pressure 183/71 O2 Sat by Pulse Oximetry 96 Course - Consultation Called: :21 Call Returned: :21 (Patient discussed with Dr. Fuchs. Continue outpatient treatment.) Consultation Comments: [address] Fuchs but only gets answering machine. Left message to please call emergency room. 1050 Dr. Genao called and patient discussed and he states to admit patient to him on OPS. Informed or cardiac enzymes being elevated. - Education/Counseling Education/Counseling: Patient Educated On: Treatment, Diagnosis, Needs for Follow Up ROR - Labs Reviewed Laboratory Results Reviewed?: Yes (All labs and x-ray results reviewed and discussed with patient) Result Diagrams: 12/31/19 23:36 12/31/19 23:36 - XRAY XRAY Interpreted by: Radiologist (CXR: No focal consolidation seen) - EKG Rate: 88 Pratt: Normal Rhythm: NSR Block: None Hypertrophy: None ST: Old, Ant, Infarct - Labs Reviewed Laboratory: WBC 5.5 X10^3/uL (3.6-10.0) 12/31/19 23:36 RBC 2.52 X10^6/uL (3.5-5.4) L 12/31/19 23:36 Hgb 10.1 g/dL (12.0-16.0) L 12/31/19 23:36 Hct 29.6 % (36.0-47.0) L 12/31/19 23:36 MCV 117.4 fL (80.0-100.0) H 12/31/19 23:36 MCH 40.2 pg (27.0-34.0) H 12/31/19 23:36 MCHC 34.2 g/dL (33.0-35.0) 12/31/19 23:36 RDW 14.0 % (11.6-16.5) 12/31/19 23:36 Plt Count 58 X10^3/uL (150.0-450.0) L 12/31/19 23:36 Plt Count Comment Decreased (ADEQUATE) A 12/31/19 23:36 MPV 11.0 fL (7.4-11.0) 12/31/19 23:36 Neut % (Auto) 83.4 % (42.0-75.0) H 12/31/19 23:36 Lymph % (Auto) 9.0 % (21.0-51.0) L 12/31/19 23:36 [place] % (Auto) 6.0 % (0.0-13.0) 12/31/19 23:36 Eos % (Auto) 1.3 % (0.9-2.9) 12/31/19 23:36 Baso % (Auto) 0.3 % (0.2-1.0) 12/31/19 23:36 Neut # (Auto) 4.6 x10^3/uL (2.2-4.8) 12/31/19 23:36 Lymph # (Auto) 0.5 X10^3/uL (1.3-2.9) L 12/31/19 23:36 [place] # (Auto) 0.3 x10^3/uL (0.3-0.8) 12/31/19 23:36 Eos # (Auto) 0.1 x10^3/uL (0.0-0.2) 12/31/19 23:36 Baso # (Auto) 0.0 X10^3/uL (0.0-0.1) 12/31/19 23:36 Absolute Nucleated RBC 0.0 /100WBC 12/31/19 23:36 Giant Platelets Rare 12/31/19 23:36 Plt Morphology Comment Normal (NORMAL) 12/31/19 23:36 RBC Morphology Abnormal (NORMAL) A 12/31/19 23:36 Macrocytosis 2+ A 12/31/19 23:36 PT 14.4 SECONDS (11.8-14.3) 12/31/19 23:36 INR Target Range - 12/31/19 23:36 INR 1.15 (0.8-1.3) 12/31/19 23:36 APTT 31.9 SECONDS (22.9-36.5) 12/31/19 23:36 PTT Comment - 12/31/19 23:36 Sodium 139 mmol/L (136-145) 12/31/19 23:36 Corrected Sodium TNP 12/31/19 23:36 Potassium 4.3 mmol/L (3.5-5.1) 12/31/19 23:36 Chloride 109 mmol/L (98-107) H 12/31/19 23:36 Carbon Dioxide 21.6 mmol/L (21-32) 12/31/19 23:36 BUN 9 mg/dL (7-18) 12/31/19 23:36 Creatinine 1.35 mg/dL (0.55-1.02) H 12/31/19 23:36 Est GFR (MDRD) Af Amer 49 (>60) L 12/31/19 23:36 Est GFR (MDRD) Non-Af 41 (>60) L 12/31/19 23:36 Glucose 79 mg/dL (65-99) 12/31/19 23:36 Calcium 9.5 mg/dL (8.5-10.1) 12/31/19 23:36 Corrected Calcium TNP 12/31/19 23:36 Magnesium 1.5 mg/dL (1.7-2.9) L 12/31/19 23:36 Total Bilirubin 0.80 mg/dL (0.2-1.0) 12/31/19 23:36 AST 19 Units/L (15-37) 12/31/19 23:36 ALT 15 Units/L (12-78) 12/31/19 23:36 Alkaline Phosphatase 47 Units/L (46-116) 12/31/19 23:36 Creatine Kinase 93 Units/L (26-192) 01/01/20 06:10 CK-MB (CK-2) 1.4 ng/mL (0-4.0) 01/01/20 06:10 CK/CKMB % Calc 1.5 % (<4) 01/01/20 06:10 Troponin I 0.35 ng/mL (0-1.5) 01/01/20 06:10 Total Protein 6.2 g/dL (6.4-8.2) L 12/31/19 23:36 Albumin 3.7 g/dL (3.4-5.0) 12/31/19 23:36 Globulin 2.5 g/dL (2.5-4.5) 12/31/19 23:36 Albumin/Globulin Ratio 1.5 Ratio (1.1-2.1) 12/31/19 23:36 Amylase 66 Units/L (25-115) 12/31/19 23:36 Lipase 531 Units/L (73-393) H 12/31/19 23:36 Opioid - Opioid Risk Tool Age (Savage box if 16-45): No History of Preadolescent Sexual Abuse: No Total: 0 Total Score Risk Category: Low Risk - Diagnosis Discharge Problem: Weakness generalized, Macrocytic anemia, Thrombocytopenia, Abnormal cardiac enzyme level Chronic pancreatitis Qualifiers: Pancreatitis type: idiopathic Qualified Code(s): K86.1 - Other chronic pancreatitis Chronic kidney disease (CKD) Qualifiers: Chronic kidney disease stage: stage 3 (moderate) Qualified Code(s): N18.3 - Chronic kidney disease, stage 3 (moderate) - Discharge Plan Disposition: ADMITTED INPATIENT Condition: Stable - Follow ups/Referrals Follow ups/Referrals: Jatin Genao [Primary Care Provider] - 3 days - Instructions Instructions: Anemia, Weakness, [id number]
[2019-12-31 23:47] LABS: BASOPHILS % (AUTO) 0.3 % (0.2-1.0); EOSINOPHILS # (AUTO) 0.1 x10^3/uL (0.0-0.2); HEMOGLOBIN 10.1 g/dL (12.0-16.0); LYMPHOCYTES # (AUTO) 0.5 X10^3/uL (1.3-2.9); MONOCYTES # (AUTO) 0.3 x10^3/uL (0.3-0.8)
[2019-12-31 23:50] LABS: EOSINOPHILS % (AUTO) 1.3 % (0.9-2.9); HEMATOCRIT 29.6 % (36.0-47.0); MEAN CORPUSCULAR HEMOGLOBIN 40.2 pg (27.0-34.0); MEAN CORPUSCULAR HGB CONC 34.2 g/dL (33.0-35.0); MEAN CORPUSCULAR VOLUME 117.4 fL (80.0-100.0); NEUTROPHILS # (AUTO) 4.6 x10^3/uL (2.2-4.8); NEUTROPHILS % (AUTO) 83.4 % (42.0-75.0); PLATELET COUNT 58 X10^3/uL (150.0-450.0); RED BLOOD COUNT 2.52 X10^6/uL (3.5-5.4); WHITE BLOOD COUNT 5.5 X10^3/uL (3.6-10.0)
[2020-01-01 00:01] LABS: GIANT PLATELET RARE; PLATELET MORPHOLOGY COMMENT NORMAL (NORMAL)
[2020-01-01 00:02] LABS: BLOOD UREA NITROGEN 9 mg/dL (7-18); CALCIUM 9.5 mg/dL (8.5-10.1); CARBON DIOXIDE 21.6 mmol/L (21-32); CHLORIDE 109 mmol/L (98-107); CREATININE 1.35 mg/dL (0.55-1.02); SODIUM 139 mmol/L (136-145); TROPONIN I 0.17 ng/mL (0-1.5); eGFR NON BLACK RACES 41 (>60)
[2020-01-01 00:06] LABS: ALANINE AMINOTRANSFERASE 15 Units/L (12-78); ALBUMIN 3.7 g/dL (3.4-5.0); ALKALINE PHOSPHATASE 47 Units/L (46-116); AMYLASE 66 Units/L (25-115); ASPARTATE AMINO TRANSFERASE 19 Units/L (15-37); CKMB % 3.5 % (<4); CREATINE KINASE 29 Units/L (26-192); CREATINE KINASE MB < 1.0 ng/mL (0-4.0); LIPASE 531 Units/L (73-393); MAGNESIUM 1.5 mg/dL (1.7-2.9); TOTAL PROTEIN 6.2 g/dL (6.4-8.2)
--- NOTE | 2020-01-01 01:45 | RAD ---
STUDY: FRONTAL VIEW CHESTCOMPARISON: December 24, 2019HISTORY: Shortness of breathFINDINGS:No focal consolidation is seen.The heart size is within normal limits.The mediastinum is unremarkable.There is no evidence of pleural effusion or gross pneumothorax.The trachea is midline.IMPRESSION:1. No focal consolidation is seen.2. The heart size is normal.Electronically signed by: Santos Murguia (Jan 01, 2020 01:44:19)
[2020-01-01 02:37] LABS: CKMB % 3.8 % (<4); CREATINE KINASE MB 1.1 ng/mL (0-4.0); TROPONIN I 0.26 ng/mL (0-1.5)
[2020-01-01 06:53] LABS: CKMB % 1.5 % (<4); CREATINE KINASE MB 1.4 ng/mL (0-4.0); TROPONIN I 0.35 ng/mL (0-1.5)
[2020-01-01] MEDS ORDERED: ZOFRAN INJ 4 MG VIAL IVP ONE (09:36)
[2020-01-01] MEDS ORDERED: ZOFRAN INJ 4 MG VIAL ONE (09:39)
[2020-01-01] MEDS ORDERED: NS 1000 ML 1,000 ML ONE (09:40)
[2020-01-01] MEDS: NS 1000 ML 1,000 ML IV SCH ×2 (10:21→22:50)
[2020-01-01 13:16] LABS: CKMB % 4.8 % (<4); CREATINE KINASE MB 1.2 ng/mL (0-4.0); TROPONIN I 0.33 ng/mL (0-1.5)
[2020-01-01 17:58] LABS: CKMB % 5.5 % (<4); CREATINE KINASE MB 1.1 ng/mL (0-4.0); TROPONIN I 0.31 ng/mL (0-1.5)
[2020-01-01] MEDS ORDERED: ZOFRAN INJ 4 MG VIAL IVP PRN (18:56)
[2020-01-01] MEDS: COREG TAB 12.5 MG PO SCH (21:00)
[2020-01-01] MEDS: CRESTOR TAB 10 MG PO SCH (21:00)
[2020-01-01] MEDS: INVANZ INJ 1 GM VIAL 1 GM in NS 100 ML IV + SPIKE MINIBAG* 100 ML IV SCH (21:10)
[2020-01-01 23:51] LABS: CKMB % 6.7 % (<4); CREATINE KINASE 15 Units/L (26-192); CREATINE KINASE MB < 1.0 ng/mL (0-4.0); TROPONIN I 0.25 ng/mL (0-1.5)
[2020-01-02 06:21] LABS: BASOPHILS % (AUTO) 0.4 % (0.2-1.0); EOSINOPHILS # (AUTO) 0.1 x10^3/uL (0.0-0.2); EOSINOPHILS % (AUTO) 1.5 % (0.9-2.9); HEMATOCRIT 25.2 % (36.0-47.0); HEMOGLOBIN 8.7 g/dL (12.0-16.0); LYMPHOCYTES # (AUTO) 0.7 X10^3/uL (1.3-2.9); LYMPHOCYTES % (AUTO) 12.2 % (21.0-51.0); MEAN CORPUSCULAR HEMOGLOBIN 39.9 pg (27.0-34.0); MEAN CORPUSCULAR HGB CONC 34.6 g/dL (33.0-35.0); MEAN CORPUSCULAR VOLUME 115.2 fL (80.0-100.0); MEAN PLATELET VOLUME 10.9 fL (7.4-11.0); MONOCYTES # (AUTO) 0.3 x10^3/uL (0.3-0.8); MONOCYTES % (AUTO) 5.7 % (0.0-13.0); NEUTROPHILS # (AUTO) 4.6 x10^3/uL (2.2-4.8); NEUTROPHILS % (AUTO) 80.2 % (42.0-75.0); PLATELET COUNT 73 X10^3/uL (150.0-450.0); RED BLOOD COUNT 2.18 X10^6/uL (3.5-5.4); RED CELL DISTRIBUTION WIDTH 14.1 % (11.6-16.5); WHITE BLOOD COUNT 5.8 X10^3/uL (3.6-10.0)
[2020-01-02 06:59] LABS: ALANINE AMINOTRANSFERASE 14 Units/L (12-78); ALBUMIN 3.2 g/dL (3.4-5.0); ALKALINE PHOSPHATASE 45 Units/L (46-116); ASPARTATE AMINO TRANSFERASE 17 Units/L (15-37); BLOOD UREA NITROGEN 9 mg/dL (7-18); CALCIUM 8.7 mg/dL (8.5-10.1); CARBON DIOXIDE 19.2 mmol/L (21-32); CHLORIDE 106 mmol/L (98-107); CHOL/HDL RATIO 2.4 (0.0-5.0); CHOLESTEROL 56 mg/dL (0-200); COR CA(FOR HYPOALB) 9.3 mg/dL (8.5-10.1); CREATININE 1.23 mg/dL (0.55-1.02); HDL CHOLESTEROL 23 mg/dL (40-60); SODIUM 138 mmol/L (136-145); TOTAL PROTEIN 5.8 g/dL (6.4-8.2); TRIGLYCERIDES 62 mg/dL (0-150); eGFR NON BLACK RACES 45 (>60)
[2020-01-02] MEDS ORDERED: KLOR-CON PO PRN (07:25)
[2020-01-02] MEDS ORDERED: POTASSIUM CHLORIDE LIQ 20 MEQ UDC PO PRN (07:25)
[2020-01-02] MEDS ORDERED: POTASSIUM CHL 40 MEQ/NS 0.45% 500 ML IV PRN (07:25)
[2020-01-02] MEDS ORDERED: K-RIDER 10 MEQ/NS 100 ML 10 MEQ/100 ML BAG IV PRN (07:25)
[2020-01-02] MEDS ORDERED: K-DUR TAB 20 MEQ PO PRN (07:25)
[2020-01-02] MEDS ORDERED: MAGNESIUM SULFATE 1 GRAM/100 mL PREMIX 1 GM/100 ML BAG IV PRN (07:25)
[2020-01-02] MEDS ORDERED: POTASSIUM CHL 60 MEQ/NS 0.45% 500 ML IV PRN (07:25)
[2020-01-02] MEDS ORDERED: MICRO K EXTEN CAP 10 MEQ PO PRN (07:25)
[2020-01-02 08:02] LABS: PLATELET MORPHOLOGY COMMENT NORMAL (NORMAL)
[2020-01-02] MEDS: COREG TAB 12.5 MG PO SCH ×2 (10:16→20:35)
[2020-01-02] MEDS: INVANZ INJ 1 GM VIAL 1 GM in NS 100 ML IV + SPIKE MINIBAG* 100 ML IV SCH (10:16)
[2020-01-02 10:50] VITALS: BMI 22.8
[2020-01-02] MEDS: NS 1000 ML 1,000 ML IV SCH ×2 (13:35→21:54)
--- NOTE | 2020-01-02 18:12 | DR.UPDATE ---
H&P Update History and Physical Update: History and Physical reviewed and patient examined. Changes noted: Yes with the following: WAS RELEASED FROM THE HOSPITAL YESTERDAY AFTER TREATMENT OF UROSEPSIS AND DEHYDRATION. FAMILY REPORTS THAT SHE IS UNABLE TO WALK OR PERFORM ADLs FOR HERSELF. SHE CONTINUES WITH GENERALIZED PAIN. FAMILY REPORTS THAT SHE CONTINUES WITH CONFUSION AT TIMES AND IS INCONTINENT OF BOWEL AND BLADDER. FAMILY REPORTS THAT THEY ARE UNABLE TO CARE FOR HER AT HOME IN THIS CONDITION. SHE DENIES CHEST PAIN OR SHORTNESS OF BREATH. ON ARRIVAL TO THE ER, SHE WAS NOTED TO BE SATURATED WITH URINE. VITALS WERE 98.0-84-18-100%-183/71. LABS WERE OBTAINED. ABNORMAL LAB VALUES INCLUDE THE FOLLOWING: RBC 2.52, HGB 10.1, HCT 29.6, PLT COUNT 58, CHLORIDE 109, CREATININE 1.35, MAGNESIUM 1.5, TOTAL PROTEIN 6.2. CARDIAC ENZYMES ARE WITHIN NORMAL LIMITS. A CHEST XRAY WAS OBTAINED AND REVEALED: NO FOCAL CONSOLIDATION IS SEEN. THE HEART SIZE IS NORMAL. EKG WAS OBTAINED AND REVEALED: SINUS RHYTHM WITH HR 88. PATIENT WAS ADMITTED FOR FURTHER EVALUATION AND TREATMENT OF GENERALIZED WEAKNESS, FAILURE TO THRIVE, CHRONIC PANCREATITIS, AND ANEMIA. SHE WAS STARTED ON NS AT 80 ML/HR, INVANZ 1G IV DAILY, THE POTASSIUM AND MAGNESIUM PROTOCOLS, AND ZOFRAN 4MG IV Q6H PRN. WE WILL HAVE PHYSICAL THERAPY EVAUATE PATIENT. OTHERWISE, WE PLAN TO FOLLOW UP WITH AM LABS AND CONTINUE TO MONITOR. Prescription drug monitoring program results: PDMP reviewed and no concerns identified H&P Reviewed: Yes Patient was examined?: Yes
[2020-01-02] MEDS: CRESTOR TAB 10 MG PO SCH (20:35)
[2020-01-03] MEDS: NS 1000 ML 1,000 ML IV SCH ×2 (00:32→13:42)
[2020-01-03 06:15] LABS: BASOPHILS % (AUTO) 0.6 % (0.2-1.0); EOSINOPHILS # (AUTO) 0.1 x10^3/uL (0.0-0.2); EOSINOPHILS % (AUTO) 2.1 % (0.9-2.9); HEMATOCRIT 24.7 % (36.0-47.0); HEMOGLOBIN 8.8 g/dL (12.0-16.0); LYMPHOCYTES # (AUTO) 0.6 X10^3/uL (1.3-2.9); LYMPHOCYTES % (AUTO) 12.1 % (21.0-51.0); MEAN CORPUSCULAR HEMOGLOBIN 40.2 pg (27.0-34.0); MEAN CORPUSCULAR HGB CONC 35.4 g/dL (33.0-35.0); MEAN CORPUSCULAR VOLUME 113.6 fL (80.0-100.0); MEAN PLATELET VOLUME 11.1 fL (7.4-11.0); MONOCYTES # (AUTO) 0.2 x10^3/uL (0.3-0.8); MONOCYTES % (AUTO) 4.1 % (0.0-13.0); NEUTROPHILS % (AUTO) 81.1 % (42.0-75.0); PLATELET COUNT 87 X10^3/uL (150.0-450.0); RED BLOOD COUNT 2.18 X10^6/uL (3.5-5.4); RED CELL DISTRIBUTION WIDTH 14.2 % (11.6-16.5); WHITE BLOOD COUNT 4.9 X10^3/uL (3.6-10.0)
[2020-01-03 06:29] LABS: ALANINE AMINOTRANSFERASE 14 Units/L (12-78); ALKALINE PHOSPHATASE 46 Units/L (46-116); ASPARTATE AMINO TRANSFERASE 21 Units/L (15-37); BLOOD UREA NITROGEN 11 mg/dL (7-18); CALCIUM 8.6 mg/dL (8.5-10.1); CARBON DIOXIDE 20.2 mmol/L (21-32); CHLORIDE 107 mmol/L (98-107); COR CA(FOR HYPOALB) 9.4 mg/dL (8.5-10.1); CREATININE 1.12 mg/dL (0.55-1.02); SODIUM 139 mmol/L (136-145); TOTAL PROTEIN 5.8 g/dL (6.4-8.2); eGFR NON BLACK RACES 51 (>60)
[2020-01-03 07:17] LABS: PLATELET MORPHOLOGY COMMENT NORMAL (NORMAL)
[2020-01-03] MEDS: COREG TAB 12.5 MG PO SCH ×2 (09:21→21:44)
[2020-01-03] MEDS: INVANZ INJ 1 GM VIAL 1 GM in NS 100 ML IV + SPIKE MINIBAG* 100 ML IV SCH (09:22)
[2020-01-03] MEDS ORDERED: ECOTRIN TAB 325 MG PO SCH (12:00)
--- NOTE | 2020-01-03 13:06 | PCM.PROG ---
Progress Note - Progress Note for Day of Date of Exam: 01/02/20 - Subjective Subjective: IS BEING TREATED FOR DEHYDRATION, GENERALIZED WEAKNESS, FAILURE TO THRIVE, CHRONIC PANCREATITIS, ANEMIA, AND E.COLI URINARY TRACT INFECTION. TODAY, SHE IS ALERT, LYING IN BED ON MORNING ROUNDS. SHE CONTINUES WITH REPORTS OF WEAKNESS. STAFF REPORTS THAT SHE CONTINUES WITH CONFUSION AT TIMES. SHE CONTINUES TO BE UNSTEADY ON AMBULATION AND IS REQUIRING 2 PERSON ASSISTANCE. ON EXAMINATION, HEART IS REGULAR IN RATE AND RHYTHM. BILATERAL LUNGS ARE NOTED WITH DIMINISHED LUNG SOUNDS THROUGHOUT. ABDOMEN IS ROUND, SOFT, AND NOTED WITH SUPRAPUBIC TENDERNESS TO PALPATION. NORMAL BOWEL SOUNDS ARE NOTED IN ALL QUADRANTS. HER VITALS THIS MORNING ARE: 97.6-81-18-97%-171/85. LABS WERE OBTAINED. ABNORMAL LAB VALUES INCLUDE THE FOLLOWING: RBC 2.18, HGB 8.7, HCT 25.2, PLT COUNT 73, CARBON DIOXIDE 19.2, CREATININE 1.23, ALK PHOS 45, TOTAL PROTEIN 5.8, ALBUMIN 3.2. CARDIAC ENZYMES HAVE BEEN WITHIN NORMAL LIMITS. NO CHANGES NOTED TO EKGs. SHE IS CURRENTLY RECEIVING NS AT 80 ML/HR, INVANZ 1G IV DAILY, COREG 12.5MG PO BID, CRESTOR 10MG PO HS, THE POTASSIUM AND MAGNESIUM PROTOCOLS, AND ZOFRAN 4MG IV Q6H PRN. WE WILL CONTINUE WITH CURRENT PLAN OF CARE TODAY. OTHERWISE, WE WILL FOLLOW UP WITH AM LABS AND CONTINUE TO MONITOR. - Past Medical Family Social History Past Med/Fam/Surg Hx: No changes since H&P Allergies: Allergies codeine Allergy (Verified 01/01/20 05:28) diphenhydramine [From Benadryl] Allergy (Verified 01/01/20 05:28) ibuprofen Allergy (Verified 01/01/20 05:28) morphine Allergy (Verified 01/01/20 05:28) Penicillins Allergy (Verified 01/01/20 05:28) promethazine [From Phenergan] Allergy (Verified 01/01/20 05:28) - Review of Systems ROS: No change since H&P - Vital Signs and I&O's Vital Signs: Temperature 97.6 F Pulse Rate [Left] 66 Pulse Rate 84 Respiratory Rate 18 Blood Pressure [Left Arm] 144/63 Blood Pressure 183/71 O2 Sat by Pulse Oximetry 96 Intake and Output: Intake & Output 01/01/20 01/02/20 01/03/20 01/04/20 11:59 11:59 11:59 11:59 Intake Total 1370 / 1370 1020 / 1020 Balance 1370 / 1370 1020 / 1020 - Physical Exam Oriented: Not Oriented Eyes: Normal Ear: Normal Nose: Normal Throat: Normal Respiratory: Generalized, Diminished Cardiovascular: Normal : Normal Auscultation: Bowel Sounds: Normal Palpation: Normal Tenderness: Suprapubic, Mild Skin: Decreased [place] Musculoskeletal: Normal Psychiatric: Normal Mood Description: Calm Affect: Normal Speech Pattern: Unclear, Slurred - Laboratory and Diagnostics Result Diagrams: 01/03/20 04:30 01/03/20 04:30 Labs: Laboratory WBC 4.9 X10^3/uL (3.6-10.0) 01/03/20 04:30 RBC 2.18 X10^6/uL (3.5-5.4) L 01/03/20 04:30 Hgb 8.8 g/dL (12.0-16.0) L 01/03/20 04:30 Hct 24.7 % (36.0-47.0) L 01/03/20 04:30 MCV 113.6 fL (80.0-100.0) H 01/03/20 04:30 MCH 40.2 pg (27.0-34.0) H 01/03/20 04:30 MCHC 35.4 g/dL (33.0-35.0) H 01/03/20 04:30 RDW 14.2 % (11.6-16.5) 01/03/20 04:30 Plt Count 87 X10^3/uL (150.0-450.0) L 01/03/20 04:30 Plt Count Comment Decreased (ADEQUATE) A 01/03/20 04:30 MPV 11.1 fL (7.4-11.0) H 01/03/20 04:30 Neut % (Auto) 81.1 % (42.0-75.0) H 01/03/20 04:30 Lymph % (Auto) 12.1 % (21.0-51.0) L 01/03/20 04:30 [place] % (Auto) 4.1 % (0.0-13.0) 01/03/20 04:30 Eos % (Auto) 2.1 % (0.9-2.9) 01/03/20 04:30 Baso % (Auto) 0.6 % (0.2-1.0) 01/03/20 04:30 Neut # (Auto) 4.0 x10^3/uL (2.2-4.8) 01/03/20 04:30 Lymph # (Auto) 0.6 X10^3/uL (1.3-2.9) L 01/03/20 04:30 [place] # (Auto) 0.2 x10^3/uL (0.3-0.8) L 01/03/20 04:30 Eos # (Auto) 0.1 x10^3/uL (0.0-0.2) 01/03/20 04:30 Baso # (Auto) 0.0 X10^3/uL (0.0-0.1) 01/03/20 04:30 Absolute Nucleated RBC 0.1 /100WBC 01/03/20 04:30 Giant Platelets Rare 12/31/19 23:36 Plt Morphology Comment Normal (NORMAL) 01/03/20 04:30 RBC Morphology Abnormal (NORMAL) A 01/03/20 04:30 Macrocytosis 2+ A 01/03/20 04:30 PT 14.4 SECONDS (11.8-14.3) 12/31/19 23:36 INR Target Range - 12/31/19 23:36 INR 1.15 (0.8-1.3) 12/31/19 23:36 APTT 31.9 SECONDS (22.9-36.5) 12/31/19 23:36 PTT Comment - 12/31/19 23:36 Sodium 139 mmol/L (136-145) 01/03/20 04:30 Corrected Sodium TNP 01/03/20 04:30 Potassium 3.7 mmol/L (3.5-5.1) 01/03/20 04:30 Chloride 107 mmol/L (98-107) 01/03/20 04:30 Carbon Dioxide 20.2 mmol/L (21-32) L 01/03/20 04:30 BUN 11 mg/dL (7-18) 01/03/20 04:30 Creatinine 1.12 mg/dL (0.55-1.02) H 01/03/20 04:30 Est GFR (MDRD) Af Amer > 60 (>60) 01/03/20 04:30 Est GFR (MDRD) Non-Af 51 (>60) L 01/03/20 04:30 Glucose 56 mg/dL (65-99) L 01/03/20 04:30 Calcium 8.6 mg/dL (8.5-10.1) 01/03/20 04:30 Corrected Calcium 9.4 mg/dL (8.5-10.1) 01/03/20 04:30 Magnesium 1.5 mg/dL (1.7-2.9) L 12/31/19 23:36 Total Bilirubin 0.50 mg/dL (0.2-1.0) 01/03/20 04:30 AST 21 Units/L (15-37) 01/03/20 04:30 ALT 14 Units/L (12-78) 01/03/20 04:30 Alkaline Phosphatase 46 Units/L (46-116) 01/03/20 04:30 Creatine Kinase 15 Units/L (26-192) L 01/01/20 23:21 CK-MB (CK-2) < 1.0 ng/mL (0-4.0) 01/01/20 23:21 CK/CKMB % Calc 6.7 % (<4) 01/01/20 23:21 Troponin I 0.25 ng/mL (0-1.5) 01/01/20 23:21 Total Protein 5.8 g/dL (6.4-8.2) L 01/03/20 04:30 Albumin 3.0 g/dL (3.4-5.0) L 01/03/20 04:30 Globulin 2.8 g/dL (2.5-4.5) 01/03/20 04:30 Albumin/Globulin Ratio 1.1 Ratio (1.1-2.1) 01/03/20 04:30 Triglycerides 62 mg/dL (0-150) 01/02/20 05:12 Cholesterol 56 mg/dL (0-200) 01/02/20 05:12 LDL Cholesterol, Calc 21 mg/dL (0-100) 01/02/20 05:12 HDL Cholesterol 23 mg/dL (40-60) L 01/02/20 05:12 Cholesterol/HDL Ratio 2.4 (0.0-5.0) 01/02/20 05:12 Amylase 66 Units/L (25-115) 12/31/19 23:36 Lipase 531 Units/L (73-393) H 12/31/19 23:36 - Plan (1) Dehydration Status: Acute Plan: NS AT 80 ML/HR, INVANZ 1G IV DAILY, COREG 12.5MG PO BID, CRESTOR 10MG PO HS, THE POTASSIUM AND MAGNESIUM PROTOCOLS, AND ZOFRAN 4MG IV Q6H PRN. (2) Weakness generalized Status: Acute (3) Failure to thrive Status: Acute Qualifiers: Failure to thrive age range: in adult Qualified Code(s): R62.7 - Adult failure to thrive (4) E. coli UTI Status: Acute (5) Thrombocytopenia Status: Acute (6) Anemia Status: Acute Qualifiers: Anemia type: iron deficiency Iron deficiency anemia type: chronic blood loss Qualified Code(s): D50.0 - Iron deficiency anemia secondary to blood loss (chronic) (7) Chronic pancreatitis Status: Chronic Qualifiers: Pancreatitis type: idiopathic Qualified Code(s): K86.1 - Other chronic pancreatitis
[2020-01-03] MEDS: VSL#3 PO SCH ×2 (13:42→17:10)
[2020-01-03] MEDS: CHLORTHALIDONE PO SCH ×2 (13:43→17:10)
--- NOTE | 2020-01-03 14:00 | PCM.PROG ---
Progress Note - Progress Note for Day of Date of Exam: 01/03/20 - Subjective Subjective: IS BEING TREATED FOR DEHYDRATION, GENERALIZED WEAKNESS, FAILURE TO THRIVE, CHRONIC PANCREATITIS, ANEMIA, AND E.COLI URINARY TRACT INFECTION. TODAY, SHE IS LYING IN BED WITH EYES CLOSED ON MORNING ROUNDS. SHE AWAKENS TO VERBAL STIMULI. SHE CONTINUES WITH REPORTS DISORIENTATION. STAFF RE PORTS THAT SHE CONTINUES WITH MODERATED WEAKNESS. SHE CONTINUES TO BE UNSTEADY ON AMBULATION AND IS REQUIRING MAXIMUM ASSISTANCE. ON EXAMINATION, HEART IS REGULAR IN RATE AND RHYTHM. BILATERAL LUNGS ARE NOTED WITH DIMINISHED LUNG SOUNDS THROUGHOUT. ABDOMEN IS ROUND, SOFT, AND NOTED WITH SUPRAPUBIC TENDERNESS TO PALPATION. NORMAL BOWEL SOUNDS ARE NOTED IN ALL QUADRANTS. HER VITALS THIS MORNING ARE: 97.6-66-18-96%-144/63. LABS WERE OBTAINED. ABNORMAL LAB VALUES INCLUDE THE FOLLOWING: RBC 2.18, HGB 8.8, HCT 24.7, PLT COUNT 87, CARBON DIOXIDE 20.2, CREATININE 1.12, TOTAL BILI 5.8, ALBUMIN 3.0. SHE IS CURRENTLY RECEIVING NS AT 80 ML/HR, INVANZ 1G IV DAILY, COREG 12.5MG PO BID, CRESTOR 10MG PO HS, THE POTASSIUM AND MAGNESIUM PROTOCOLS, AND ZOFRAN 4MG IV Q6H PRN. WE WILL CONTINUE WITH CURRENT PLAN OF CARE TODAY AND OBTAIN A BRAIN MRI WITHOUT CONTRAST. OTHERWISE, WE WILL FOLLOW UP WITH AM LABS AND CONTINUE TO MONITOR. - Past Medical Family Social History Past Med/Fam/Surg Hx: No changes since H&P Allergies: Allergies codeine Allergy (Verified 01/01/20 05:28) diphenhydramine [From Benadryl] Allergy (Verified 01/01/20 05:28) ibuprofen Allergy (Verified 01/01/20 05:28) morphine Allergy (Verified 01/01/20 05:28) Penicillins Allergy (Verified 01/01/20 05:28) promethazine [From Phenergan] Allergy (Verified 01/01/20 05:28) - Review of Systems ROS: No change since H&P - Vital Signs and I&O's Vital Signs: Temperature 97.6 F Pulse Rate [Left] 66 Pulse Rate 84 Respiratory Rate 18 Blood Pressure [Left Arm] 144/63 Blood Pressure 183/71 O2 Sat by Pulse Oximetry 96 Intake and Output: Intake & Output 01/01/20 01/02/20 01/03/20 01/04/20 11:59 11:59 11:59 11:59 Intake Total 1370 / 1370 1020 / 1020 Balance 1370 / 1370 1020 / 1020 - Physical Exam Oriented: Not Oriented Eyes: Normal Ear: Normal Nose: Normal Throat: Normal Respiratory: Generalized, Diminished Cardiovascular: Normal : Normal Auscultation: Bowel Sounds: Normal Tenderness: Suprapubic, Mild Skin: Decreased Turgur Musculoskeletal: Normal Psychiatric: Normal Mood Description: Calm Affect: Normal Speech Pattern: Unclear, Slurred - Laboratory and Diagnostics Result Diagrams: 01/03/20 04:30 01/03/20 04:30 Labs: Laboratory WBC 4.9 X10^3/uL (3.6-10.0) 01/03/20 04:30 RBC 2.18 X10^6/uL (3.5-5.4) L 01/03/20 04:30 Hgb 8.8 g/dL (12.0-16.0) L 01/03/20 04:30 Hct 24.7 % (36.0-47.0) L 01/03/20 04:30 MCV 113.6 fL (80.0-100.0) H 01/03/20 04:30 MCH 40.2 pg (27.0-34.0) H 01/03/20 04:30 MCHC 35.4 g/dL (33.0-35.0) H 01/03/20 04:30 RDW 14.2 % (11.6-16.5) 01/03/20 04:30 Plt Count 87 X10^3/uL (150.0-450.0) L 01/03/20 04:30 Plt Count Comment Decreased (ADEQUATE) A 01/03/20 04:30 MPV 11.1 fL (7.4-11.0) H 01/03/20 04:30 Neut % (Auto) 81.1 % (42.0-75.0) H 01/03/20 04:30 Lymph % (Auto) 12.1 % (21.0-51.0) L 01/03/20 04:30 [place] % (Auto) 4.1 % (0.0-13.0) 01/03/20 04:30 Eos % (Auto) 2.1 % (0.9-2.9) 01/03/20 04:30 Baso % (Auto) 0.6 % (0.2-1.0) 01/03/20 04:30 Neut # (Auto) 4.0 x10^3/uL (2.2-4.8) 01/03/20 04:30 Lymph # (Auto) 0.6 X10^3/uL (1.3-2.9) L 01/03/20 04:30 [place] # (Auto) 0.2 x10^3/uL (0.3-0.8) L 01/03/20 04:30 Eos # (Auto) 0.1 x10^3/uL (0.0-0.2) 01/03/20 04:30 Baso # (Auto) 0.0 X10^3/uL (0.0-0.1) 01/03/20 04:30 Absolute Nucleated RBC 0.1 /100WBC 01/03/20 04:30 Giant Platelets Rare 12/31/19 23:36 Plt Morphology Comment Normal (NORMAL) 01/03/20 04:30 RBC Morphology Abnormal (NORMAL) A 01/03/20 04:30 Macrocytosis 2+ A 01/03/20 04:30 PT 14.4 SECONDS (11.8-14.3) 12/31/19 23:36 INR Target Range - 12/31/19 23:36 INR 1.15 (0.8-1.3) 12/31/19 23:36 APTT 31.9 SECONDS (22.9-36.5) 12/31/19 23:36 PTT Comment - 12/31/19 23:36 Sodium 139 mmol/L (136-145) 01/03/20 04:30 Corrected Sodium TNP 01/03/20 04:30 Potassium 3.7 mmol/L (3.5-5.1) 01/03/20 04:30 Chloride 107 mmol/L (98-107) 01/03/20 04:30 Carbon Dioxide 20.2 mmol/L (21-32) L 01/03/20 04:30 BUN 11 mg/dL (7-18) 01/03/20 04:30 Creatinine 1.12 mg/dL (0.55-1.02) H 01/03/20 04:30 Est GFR (MDRD) Af Amer > 60 (>60) 01/03/20 04:30 Est GFR (MDRD) Non-Af 51 (>60) L 01/03/20 04:30 Glucose 56 mg/dL (65-99) L 01/03/20 04:30 Calcium 8.6 mg/dL (8.5-10.1) 01/03/20 04:30 Corrected Calcium 9.4 mg/dL (8.5-10.1) 01/03/20 04:30 Magnesium 1.5 mg/dL (1.7-2.9) L 12/31/19 23:36 Total Bilirubin 0.50 mg/dL (0.2-1.0) 01/03/20 04:30 AST 21 Units/L (15-37) 01/03/20 04:30 ALT 14 Units/L (12-78) 01/03/20 04:30 Alkaline Phosphatase 46 Units/L (46-116) 01/03/20 04:30 Creatine Kinase 15 Units/L (26-192) L 01/01/20 23:21 CK-MB (CK-2) < 1.0 ng/mL (0-4.0) 01/01/20 23:21 CK/CKMB % Calc 6.7 % (<4) 01/01/20 23:21 Troponin I 0.25 ng/mL (0-1.5) 01/01/20 23:21 Total Protein 5.8 g/dL (6.4-8.2) L 01/03/20 04:30 Albumin 3.0 g/dL (3.4-5.0) L 01/03/20 04:30 Globulin 2.8 g/dL (2.5-4.5) 01/03/20 04:30 Albumin/Globulin Ratio 1.1 Ratio (1.1-2.1) 01/03/20 04:30 Triglycerides 62 mg/dL (0-150) 01/02/20 05:12 Cholesterol 56 mg/dL (0-200) 01/02/20 05:12 LDL Cholesterol, Calc 21 mg/dL (0-100) 01/02/20 05:12 HDL Cholesterol 23 mg/dL (40-60) L 01/02/20 05:12 Cholesterol/HDL Ratio 2.4 (0.0-5.0) 01/02/20 05:12 Amylase 66 Units/L (25-115) 12/31/19 23:36 Lipase 531 Units/L (73-393) H 12/31/19 23:36 - Plan (1) Dehydration Status: Acute Plan: NS AT 80 ML/HR, INVANZ 1G IV DAILY, COREG 12.5MG PO BID, CRESTOR 10MG PO HS, THE POTASSIUM AND MAGNESIUM PROTOCOLS, AND ZOFRAN 4MG IV Q6H PRN. (2) Weakness generalized Status: Acute (3) Failure to thrive Status: Acute Qualifiers: Failure to thrive age range: in adult Qualified Code(s): R62.7 - Adult elza lure to thrive (4) E. coli UTI Status: Acute (5) Thrombocytopenia Status: Acute (6) Anemia Status: Acute Qualifiers: Anemia type: iron deficiency Iron deficiency anemia type: chronic blood loss Qualified Code(s): D50.0 - Iron deficiency anemia secondary to blood loss (chronic) (7) Chronic pancreatitis Status: Chronic Qualifiers: Pancreatitis type: idiopathic Qualified Code(s): K86.1 - Other chronic pancreatitis
--- NOTE | 2020-01-03 15:36 | MRI ---
HISTORY: Altered mental status, weaknessStudy: MRI Brain without contrastComparison: CT 12/29/2019Technique: Multiplanar multi-sequence MRI of the brain was performed with standard departmental protocolFindings:Generalized cerebral volume loss with confluent subcortical and periventricular white matter hyperintensity on T2 and FLAIR is compatible with advanced microvascular ischemic changes. There is restricted diffusion within the left parietal and temporal lobes in the MCA distribution as well as a rounded area of restricted diffusion in left cerebellum compatible with late acute to early subacute infarctions with associated cerebral cortical edema. No MRI evidence of hemorrhage. No abnormal extra-axial fluid collection. The ventricles are symmetric and nondilated. No mass effect or midline shift.Major T2 flow voids in the posterior circulation appear intact. Major flow voids in the anterior circulation appear intact but CTA would be more sensitive for evaluation of branch vessel occlusion. The midline structures appear unremarkable . The soft tissues are intact. Layering fluid is seen within the bilateral maxillary sinuses and bilateral mastoid air cells.IMPRESSION:1. 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 No MRI evidence of hemorrhage.2. Chronic background cerebral volume loss and moderate to severe microvascular ischemic changes.3. Nonspecific fluid in the bilateral maxillary sinuses and mastoid air cells.Electronically signed by: DONNA VERA (Jan 03, 2020 15:35:10)
[2020-01-03] MEDS ORDERED: LEXAPRO PO SCH (21:00)
[2020-01-03] MEDS: CRESTOR TAB 10 MG PO SCH (21:45)
[2020-01-04] MEDS: NS 1000 ML 1,000 ML IV SCH ×2 (03:21→18:18)
[2020-01-04 06:29] LABS: BASOPHILS % (AUTO) 0.3 % (0.2-1.0); HEMATOCRIT 25.1 % (36.0-47.0); HEMOGLOBIN 8.7 g/dL (12.0-16.0); LYMPHOCYTES # (AUTO) 0.6 X10^3/uL (1.3-2.9); LYMPHOCYTES % (AUTO) 12.7 % (21.0-51.0); MEAN CORPUSCULAR HEMOGLOBIN 39.6 pg (27.0-34.0); MEAN CORPUSCULAR HGB CONC 34.9 g/dL (33.0-35.0); MEAN CORPUSCULAR VOLUME 113.5 fL (80.0-100.0); MEAN PLATELET VOLUME 10.7 fL (7.4-11.0); MONOCYTES # (AUTO) 0.2 x10^3/uL (0.3-0.8); MONOCYTES % (AUTO) 4.4 % (0.0-13.0); NEUTROPHILS # (AUTO) 3.8 x10^3/uL (2.2-4.8); NEUTROPHILS % (AUTO) 81.6 % (42.0-75.0); PLATELET COUNT 99 X10^3/uL (150.0-450.0); RED BLOOD COUNT 2.21 X10^6/uL (3.5-5.4); RED CELL DISTRIBUTION WIDTH 14.1 % (11.6-16.5); WHITE BLOOD COUNT 4.6 X10^3/uL (3.6-10.0)
[2020-01-04 06:33] LABS: ALANINE AMINOTRANSFERASE 11 Units/L (12-78); ALKALINE PHOSPHATASE 48 Units/L (46-116); ASPARTATE AMINO TRANSFERASE 25 Units/L (15-37); BLOOD UREA NITROGEN 12 mg/dL (7-18); CALCIUM 8.8 mg/dL (8.5-10.1); CARBON DIOXIDE 21.6 mmol/L (21-32); CHLORIDE 107 mmol/L (98-107); COR CA(FOR HYPOALB) 9.6 mg/dL (8.5-10.1); CREATININE 1.05 mg/dL (0.55-1.02); SODIUM 140 mmol/L (136-145); TOTAL PROTEIN 5.9 g/dL (6.4-8.2); eGFR NON BLACK RACES 55 (>60)
[2020-01-04 07:35] LABS: PLATELET MORPHOLOGY COMMENT NORMAL (NORMAL)
[2020-01-04] MEDS: INVANZ INJ 1 GM VIAL 1 GM in NS 100 ML IV + SPIKE MINIBAG* 100 ML IV SCH (09:25)
[2020-01-04] MEDS: VSL#3 PO SCH (09:26)
[2020-01-04] MEDS: COREG TAB 12.5 MG PO SCH (09:26)
[2020-01-04] MEDS: CHLORTHALIDONE PO SCH (09:27)
[2020-01-04] MEDS: ALBUMIN HUMAN 25%- 100 ML 100 ML IV SCH (10:47)
[2020-01-04] MEDS ORDERED: PHARMACY CONSULT - TPN XX SCH (11:00)
[2020-01-04] MEDS: CLINIMIX 4.25 %/10 % 1,000 ML with MVI INJ (ADULT) 10 ML, TPN ELECTROLYTES 20 ML IV SCH ×3 (16:28)
[2020-01-04] MEDS: LOVENOX INJ 40 MG SYR SC SCH (16:35)
[2020-01-04] MEDS ORDERED: NS 1000 ML 1,000 ML ONE (18:00)
[2020-01-05 06:30] LABS: BASOPHILS % (AUTO) 0.5 % (0.2-1.0); HEMATOCRIT 22.7 % (36.0-47.0); HEMOGLOBIN 7.9 g/dL (12.0-16.0); LYMPHOCYTES # (AUTO) 0.7 X10^3/uL (1.3-2.9); LYMPHOCYTES % (AUTO) 18.4 % (21.0-51.0); MEAN CORPUSCULAR HEMOGLOBIN 39.4 pg (27.0-34.0); MEAN CORPUSCULAR HGB CONC 34.8 g/dL (33.0-35.0); MEAN CORPUSCULAR VOLUME 113.1 fL (80.0-100.0); MEAN PLATELET VOLUME 11.8 fL (7.4-11.0); MONOCYTES # (AUTO) 0.2 x10^3/uL (0.3-0.8); MONOCYTES % (AUTO) 5.2 % (0.0-13.0); NEUTROPHILS # (AUTO) 3.1 x10^3/uL (2.2-4.8); NEUTROPHILS % (AUTO) 74.9 % (42.0-75.0); PLATELET COUNT 104 X10^3/uL (150.0-450.0); RED BLOOD COUNT 2.01 X10^6/uL (3.5-5.4); WHITE BLOOD COUNT 4.1 X10^3/uL (3.6-10.0)
[2020-01-05 06:32] LABS: ALANINE AMINOTRANSFERASE 13 Units/L (12-78); ALBUMIN 3.3 g/dL (3.4-5.0); ALKALINE PHOSPHATASE 41 Units/L (46-116); ASPARTATE AMINO TRANSFERASE 20 Units/L (15-37); BLOOD UREA NITROGEN 13 mg/dL (7-18); CALCIUM 8.6 mg/dL (8.5-10.1); CARBON DIOXIDE 24.4 mmol/L (21-32); CHLORIDE 106 mmol/L (98-107); COR CA(FOR HYPOALB) 9.2 mg/dL (8.5-10.1); CREATININE 1.07 mg/dL (0.55-1.02); SODIUM 139 mmol/L (136-145); TOTAL PROTEIN 5.8 g/dL (6.4-8.2); eGFR NON BLACK RACES 53 (>60)
[2020-01-05] MEDS ORDERED: POTASSIUM CHL 40 MEQ/NS 0.45% 500 ML IV PRN (06:47)
[2020-01-05] MEDS ORDERED: POTASSIUM CHL 60 MEQ/NS 0.45% 500 ML IV PRN (06:47)
[2020-01-05] MEDS ORDERED: K-RIDER 10 MEQ/NS 100 ML 10 MEQ/100 ML BAG IV PRN (06:47)
[2020-01-05 08:05] LABS: PLATELET MORPHOLOGY COMMENT NORMAL (NORMAL)
[2020-01-05] MEDS: ALBUMIN HUMAN 25%- 100 ML 100 ML IV SCH (09:47)
[2020-01-05] MEDS: LOVENOX INJ 40 MG SYR SC SCH (09:48)
[2020-01-05] MEDS: NS 1000 ML 1,000 ML IV SCH (09:52)
--- NOTE | 2020-01-05 11:51 | PCM.PROG ---
Progress Note - Progress Note for Day of Date of Exam: 01/04/20 - Subjective Subjective: IS BEING TREATED FOR DEHYDRATION, GENERALIZED WEAKNESS, FAILURE TO THRIVE, CHRONIC PANCREATITIS, ANEMIA, AND E.COLI URINARY TRACT INFECTION. TODAY, SHE IS LYING IN BED WITH EYES CLOSED ON MORNING ROUNDS. SHE IS DIFFICULT TO AROUSE THIS MORNING. SHE MOANS WHEN SHE IS STIMULATED. STAFF R EPORTS THAT THEY HAVE BEEN UNABLE TO GET HER TO EAT OR TAKE MEDICATIOSN. PRIOR TO BECOMING LETHARGIC, STAFF REPORTS THAT SHE HAD MODERATE RIGHT SIDED WEAKNESS. ON EXAMINATION, HEART IS REGULAR IN RATE AND RHYTHM. BILATERAL LUNGS ARE NOTED WITH DIMINISHED LUNG SOUNDS THROUGHOUT. NORMAL BOWEL SOUNDS ARE NOTED IN ALL QUADRANTS. HER VITALS THIS MORNING ARE: 98.1-96-18-93%-142/58. LABS WERE OBTAINED. ABNORMAL LAB VALUES INCLUDE THE FOLLOWING: RBC 2.21, HGB 8.7, HCT 25.1, PLT COUNT 99, CREATININE 1.05,ALT 11, TOTAL PROTEIN 5.9, ALBUMIN 3.0, PREALBUMIN 8.1. A BRAIN MRI WAS OBTAINED YESTERDAY AND REVEALED: 1. 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 No MRI evidence of hemorrhage. 2. Chronic background cerebral volume loss and moderate to severe microvascular ischemic changes. 3. Nonspecific fluid in the bilateral maxillary sinuses and mastoid air cells. SHE IS CURRENTLY RECEIVING NS AT 80 ML/HR, INVANZ 1G IV DAILY, COREG 12.5MG PO BID, CRESTOR 10MG PO HS, THE POTASSIUM AND MAGNESIUM PROTOCOLS, AND ZOFRAN 4MG IV Q6H PRN. WE WILL START LOVENOX TODAY. WE WILL HOLD HER ORAL MEDICATIONS AND MONITOR HER BLOOD PRESSURE. IF NEEDED, WE CAN GIVE IV ANTI-HYPERTENSIVES. WE ARE ARRANGING PLACEMENT FOR PHYSICAL THERAPY AND RAHAB DUE TO ACUTE CVA. WE DISCUSSED PLAN OF CARE WITH HER SON, VIRGEN. HE IS IN AGREEMENT WITH PLANS. WE WILL ALSO START IV TPN AND ALBUMIN 25% IV DAILY TODAY. OTHERWISE, WE WILL FOLLOW UP WITH AM LABS AND CONTINUE TO MONITOR. - Past Medical Family Social History Past Med/Fam/Surg Hx: No changes since H&P Allergies: Allergies codeine Allergy (Verified 01/01/20 05:28) diphenhydramine [From Benadryl] Allergy (Verified 01/01/20 05:28) ibuprofen Allergy (Verified 01/01/20 05:28) morphine Allergy (Verified 01/01/20 05:28) Penicillins Allergy (Verified 01/01/20 05:28) promethazine [From Phenergan] Allergy (Verified 01/01/20 05:28) - Review of Systems ROS: No change since H&P - Vital Signs and I&O's Vital Signs: Temperature 98.0 F Pulse Rate [Left] 69 Pulse Rate 84 Respiratory Rate 18 Blood Pressure [Left Arm] 130/68 Blood Pressure 183/71 O2 Sat by Pulse Oximetry 98 Intake and Output: Intake & Output 01/02/20 01/03/20 01/04/20 01/05/20 11:59 11:59 11:59 11:59 Intake Total 1370 / 1370 1020 / 1020 1187 / 1187 2250 / 2250 Balance 1370 / 1370 1020 / 1020 1187 / 1187 2250 / 2250 - Physical Exam Oriented: Unable to test Eyes: Normal Ear: Normal Nose: Normal Throat: Normal Respiratory: Generalized, Diminished Cardiovascular: Normal : Normal Auscultation: Bowel Sounds: Normal Palpation: Normal Tenderness: Normal Skin: Decreased Turgur Musculoskeletal: Normal Psychiatric: Normal Mood Description: Flat Affect: Flat Speech Pattern: Delayed, Slurred - Laboratory and Diagnostics Result Diagrams: 01/05/20 04:15 01/05/20 04:15 Labs: Laboratory WBC 4.1 X10^3/uL (3.6-10.0) 01/05/20 04:15 RBC 2.01 X10^6/uL (3.5-5.4) L 01/05/20 04:15 Hgb 7.9 g/dL (12.0-16.0) L 01/05/20 04:15 Hct 22.7 % (36.0-47.0) L 01/05/20 04:15 MCV 113.1 fL (80.0-100.0) H 01/05/20 04:15 MCH 39.4 pg (27.0-34.0) H 01/05/20 04:15 MCHC 34.8 g/dL (33.0-35.0) 01/05/20 04:15 RDW 14.0 % (11.6-16.5) 01/05/20 04:15 Plt Count 104 X10^3/uL (150.0-450.0) L 01/05/20 04:15 Plt Count Comment Decreased (ADEQUATE) A 01/05/20 04:15 MPV 11.8 fL (7.4-11.0) H 01/05/20 04:15 Neut % (Auto) 74.9 % (42.0-75.0) 01/05/20 04:15 Lymph % (Auto) 18.4 % (21.0-51.0) L 01/05/20 04:15 [place] % (Auto) 5.2 % (0.0-13.0) 01/05/20 04:15 Eos % (Auto) 1.0 % (0.9-2.9) 01/05/20 04:15 Baso % (Auto) 0.5 % (0.2-1.0) 01/05/20 04:15 Neut # (Auto) 3.1 x10^3/uL (2.2-4.8) 01/05/20 04:15 Lymph # (Auto) 0.7 X10^3/uL (1.3-2.9) L 01/05/20 04:15 [place] # (Auto) 0.2 x10^3/uL (0.3-0.8) L 01/05/20 04:15 Eos # (Auto) 0.0 x10^3/uL (0.0-0.2) 01/05/20 04:15 Baso # (Auto) 0.0 X10^3/uL (0.0-0.1) 01/05/20 04:15 Absolute Nucleated RBC 0.1 /100WBC 01/05/20 04:15 Giant Platelets Rare 12/31/19 23:36 Plt Morphology Comment Normal (NORMAL) 01/05/20 04:15 RBC Morphology Abnormal (NORMAL) A 01/05/20 04:15 Macrocytosis 2+ A 01/05/20 04:15 PT 14.4 SECONDS (11.8-14.3) 12/31/19 23:36 INR Target Range - 12/31/19 23:36 INR 1.15 (0.8-1.3) 12/31/19 23:36 APTT 31.9 SECONDS (22.9-36.5) 12/31/19 23:36 PTT Comment - 12/31/19 23:36 Sodium 139 mmol/L (136-145) 01/05/20 04:15 Corrected Sodium TNP 01/05/20 04:15 Potassium 2.8 mmol/L (3.5-5.1) L* 01/05/20 04:15 Chloride 106 mmol/L (98-107) 01/05/20 04:15 Carbon Dioxide 24.4 mmol/L (21-32) 01/05/20 04:15 BUN 13 mg/dL (7-18) 01/05/20 04:15 Creatinine 1.07 mg/dL (0.55-1.02) H 01/05/20 04:15 Est GFR (MDRD) Af Amer > 60 (>60) 01/05/20 04:15 Est GFR (MDRD) Non-Af 53 (>60) L 01/05/20 04:15 Glucose 109 mg/dL (65-99) H 01/05/20 04:15 Calcium 8.6 mg/dL (8.5-10.1) 01/05/20 04:15 Corrected Calcium 9.2 mg/dL (8.5-10.1) 01/05/20 04:15 Magnesium 1.6 mg/dL (1.7-2.9) L 01/05/20 04:15 Total Bilirubin 0.60 mg/dL (0.2-1.0) 01/05/20 04:15 AST 20 Units/L (15-37) 01/05/20 04:15 ALT 13 Units/L (12-78) 01/05/20 04:15 Alkaline Phosphatase 41 Units/L (46-116) L 01/05/20 04:15 Creatine Kinase 15 Units/L (26-192) L 01/01/20 23:21 CK-MB (CK-2) < 1.0 ng/mL (0-4.0) 01/01/20 23:21 CK/CKMB % Calc 6.7 % (<4) 01/01/20 23:21 Troponin I 0.25 ng/mL (0-1.5) 01/01/20 23:21 Total Protein 5.8 g/dL (6.4-8.2) L 01/05/20 04:15 Albumin 3.3 g/dL (3.4-5.0) L 01/05/20 04:15 Globulin 2.5 g/dL (2.5-4.5) 01/05/20 04:15 Albumin/Globulin Ratio 1.3 Ratio (1.1-2.1) 01/05/20 04:15 Prealbumin 8.1 mg/dL (18-35.7) L 01/04/20 04:35 Triglycerides 62 mg/dL (0-150) 01/02/20 05:12 Cholesterol 56 mg/dL (0-200) 01/02/20 05:12 LDL Cholesterol, Calc 21 mg/dL (0-100) 01/02/20 05:12 HDL Cholesterol 23 mg/dL (40-60) L 01/02/20 05:12 Cholesterol/HDL Ratio 2.4 (0.0-5.0) 01/02/20 05:12 Amylase 66 Units/L (25-115) 12/31/19 23:36 Lipase 531 Units/L (73-393) H 12/31/19 23:36 - Plan (1) Acute CVA (cerebrovascular accident) Status: Acute Plan: NS AT 80 ML/HR, INVANZ 1G IV DAILY, THE POTASSIUM AND MAGNESIUM PROTOCOLS, AND ZOFRAN 4MG IV Q6H PRN. SPEECH EVALUATION, PT/OT (2) Dehydration Status: Acute Plan: NS AT 80 ML/HR, INVANZ 1G IV DAILY, THE POTASSIUM AND MAGNESIUM PROTOCOLS, AND ZOFRAN 4MG IV Q6H PRN. (3) Weakness generalized Status: Acute (4) Failure to thrive Status: Acute Qualifiers: Failure to thrive age range: in adult Qualified Code(s): R62.7 - Adult fail ure to thrive (5) E. 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
[2020-01-05] MEDS ORDERED: HumuLIN R SUBCUT PRN (13:46)
[2020-01-05] MEDS ORDERED: DEXTROSE 10% 1,000 ML IV PRN (13:46)
[2020-01-05 14:44] LABS: MAGNESIUM 1.8 mg/dL (1.7-2.9); PHOSPHORUS 1.1 mg/dL (2.6-4.7)
[2020-01-05] MEDS: CLINIMIX 4.25 %/10 % 1,000 ML with MVI INJ (ADULT) 10 ML, TPN ELECTROLYTES 20 ML IV SCH ×3 (18:14)
--- NOTE | 2020-01-05 21:51 | PCM.PROG ---
Progress Note - Progress Note for Day of Date of Exam: 01/05/20 - Subjective Subjective: IS BEING TREATED FOR ACUTE CVA, DEHYDRATION, GENERALIZED WEAKNESS, FAILURE TO THRIVE, ANEMIA, AND E.COLI URINARY TRACT INFECTION. TODAY, SHE IS LYING IN BED WITH EYES CLOSED ON MORNING ROUNDS. SHE DOES OPEN EYES TO VERBAL STIMULI. SPEECH IS SLURRED. STAFF REPORTS THAT THEY ARE UNABLE TO GET HER TO TAKE HER MEDICATIONS AND THAT SHE CONTINUES WITH RIGHT SIDED WEAKNESS. ON EXAMINATION, HEART IS REGULAR IN RATE AND RHYTHM. BILATERAL LUNGS ARE NOTED WITH DIMINISHED LUNG SOUNDS THROUGHOUT. NORMAL BOWEL SOUNDS ARE NOTED IN ALL QUADRANTS. HER VITALS THIS MORNING ARE: 98.0-69-18-98%-130/68. LABS WERE OBTAINED. ABNORMAL LAB VALUES INCLUDE THE FOLLOWING: RBC 2.01, HGB 7.9, HCT 22.7, PLT COUNT 104, POTASSIUM 2.8, CREATININE 1.07, GLUCOSE 109, ALK PHOS 41, TOTAL PROTEIN 5.8, ALBUMIN 3.3. SHE IS CURRENTLY RECEIVING NS AT 40 ML/HR, TPN, ALBUMIN 25% IV DAILY, LOVENOX 40MG SC DAILY, HUMULIN R SLIDING SCALE, THE POTASSIUM AND MAGNESIUM PROTOCOLS, AND ZOFRAN 4MG IV Q6H PRN. PHYSICAL, OCCUPA TIONAL, AND SPEECH THERAPIES ARE WORKING WITH PATIENT. WE ARE ARRANGING PLACEMENT FOR PHYSICAL THERAPY AND RAHAB DUE TO ACUTE CVA. OTHERWISE, WE WILL FOLLOW UP WITH AM LABS AND CONTINUE TO MONITOR. - Past Medical Family Social History Past Med/Fam/Surg Hx: No changes since H&P Allergies: Allergies codeine Allergy (Verified 01/01/20 05:28) diphenhydramine [From Benadryl] Allergy (Verified 01/01/20 05:28) ibuprofen Allergy (Verified 01/01/20 05:28) morphine Allergy (Verified 01/01/20 05:28) Penicillins Allergy (Verified 01/01/20 05:28) promethazine [From Phenergan] Allergy (Verified 01/01/20 05:28) - Review of Systems ROS: No change since H&P - Vital Signs and I&O's Vital Signs: Temperature 97.8 F Pulse Rate [Left] 62 Pulse Rate 84 Respiratory Rate 16 Blood Pressure [Left Arm] 130/68 Blood Pressure 183/71 O2 Sat by Pulse Oximetry 100 Intake and Output: Intake & Output 01/03/20 01/04/20 01/05/20 01/06/20 11:59 11:59 11:59 11:59 Intake Total 1020 / 1020 1187 / 1187 2250 / 2250 0 / 0 Balance 1020 / 1020 1187 / 1187 2250 / 2250 0 / 0 - Physical Exam Oriented: Unable to test Eyes: Normal Ear: Normal Nose: Normal Throat: Normal Respiratory: Generalized, Diminished Cardiovascular: Normal : Normal Auscultation: Bowel Sounds: Normal Tenderness: Normal Skin: Decreased Turgur Musculoskeletal: Normal Psychiatric: Normal Mood Description: Flat Affect: Flat Speech Pattern: Unclear, Slurred, Aphasic - Laboratory and Diagnostics Result Diagrams: 01/05/20 04:15 01/05/20 18:50 Labs: Laboratory WBC 4.1 X10^3/uL (3.6-10.0) 01/05/20 04:15 RBC 2.01 X10^6/uL (3.5-5.4) L 01/05/20 04:15 Hgb 7.9 g/dL (12.0-16.0) L 01/05/20 04:15 Hct 22.7 % (36.0-47.0) L 01/05/20 04:15 MCV 113.1 fL (80.0-100.0) H 01/05/20 04:15 MCH 39.4 pg (27.0-34.0) H 01/05/20 04:15 MCHC 34.8 g/dL (33.0-35.0) 01/05/20 04:15 RDW 14.0 % (11.6-16.5) 01/05/20 04:15 Plt Count 104 X10^3/uL (150.0-450.0) L 01/05/20 04:15 Plt Count Comment Decreased (ADEQUATE) A 01/05/20 04:15 MPV 11.8 fL (7.4-11.0) H 01/05/20 04:15 Neut % (Auto) 74.9 % (42.0-75.0) 01/05/20 04:15 Lymph % (Auto) 18.4 % (21.0-51.0) L 01/05/20 04:15 [place] % (Auto) 5.2 % (0.0-13.0) 01/05/20 04:15 Eos % (Auto) 1.0 % (0.9-2.9) 01/05/20 04:15 Baso % (Auto) 0.5 % (0.2-1.0) 01/05/20 04:15 Neut # (Auto) 3.1 x10^3/uL (2.2-4.8) 01/05/20 04:15 Lymph # (Auto) 0.7 X10^3/uL (1.3-2.9) L 01/05/20 04:15 [place] # (Auto) 0.2 x10^3/uL (0.3-0.8) L 01/05/20 04:15 Eos # (Auto) 0.0 x10^3/uL (0.0-0.2) 01/05/20 04:15 Baso # (Auto) 0.0 X10^3/uL (0.0-0.1) 01/05/20 04:15 Absolute Nucleated RBC 0.1 /100WBC 01/05/20 04:15 Giant Platelets Rare 12/31/19 23:36 Plt Morphology Comment Normal (NORMAL) 01/05/20 04:15 RBC Morphology Abnormal (NORMAL) A 01/05/20 04:15 Macrocytosis 2+ A 01/05/20 04:15 PT 14.4 SECONDS (11.8-14.3) 12/31/19 23:36 INR Target Range - 12/31/19 23:36 INR 1.15 (0.8-1.3) 12/31/19 23:36 APTT 31.9 SECONDS (22.9-36.5) 12/31/19 23:36 PTT Comment - 12/31/19 23:36 Sodium 139 mmol/L (136-145) 01/05/20 04:15 Corrected Sodium TNP 01/05/20 04:15 Potassium 3.8 mmol/L (3.5-5.1) 01/05/20 18:50 Chloride 106 mmol/L (98-107) 01/05/20 04:15 Carbon Dioxide 24.4 mmol/L (21-32) 01/05/20 04:15 BUN 13 mg/dL (7-18) 01/05/20 04:15 Creatinine 1.07 mg/dL (0.55-1.02) H 01/05/20 04:15 Est GFR (MDRD) Af Amer > 60 (>60) 01/05/20 04:15 Est GFR (MDRD) Non-Af 53 (>60) L 01/05/20 04:15 Glucose 96 mg/dL (65-99) 01/05/20 14:00 POC Glucose (mg/dL) 99 mg/dL (65-99) 01/05/20 20:41 Calcium 8.6 mg/dL (8.5-10.1) 01/05/20 04:15 Corrected Calcium 9.2 mg/dL (8.5-10.1) 01/05/20 04:15 Phosphorus 1.1 mg/dL (2.6-4.7) L 01/05/20 14:00 Magnesium 1.8 mg/dL (1.7-2.9) 01/05/20 14:00 Total Bilirubin 0.60 mg/dL (0.2-1.0) 01/05/20 04:15 AST 20 Units/L (15-37) 01/05/20 04:15 ALT 13 Units/L (12-78) 01/05/20 04:15 Alkaline Phosphatase 41 Units/L (46-116) L 01/05/20 04:15 Creatine Kinase 15 Units/L (26-192) L 01/01/20 23:21 CK-MB (CK-2) < 1.0 ng/mL (0-4.0) 01/01/20 23:21 CK/CKMB % Calc 6.7 % (<4) 01/01/20 23:21 Troponin I 0.25 ng/mL (0-1.5) 01/01/20 23:21 Total Protein 5.8 g/dL (6.4-8.2) L 01/05/20 04:15 Albumin 3.3 g/dL (3.4-5.0) L 01/05/20 04:15 Globulin 2.5 g/dL (2.5-4.5) 01/05/20 04:15 Albumin/Globulin Ratio 1.3 Ratio (1.1-2.1) 01/05/20 04:15 Prealbumin 8.1 mg/dL (18-35.7) L 01/04/20 04:35 Triglycerides 48 mg/dL (0-150) 01/05/20 14:00 Cholesterol 56 mg/dL (0-200) 01/02/20 05:12 LDL Cholesterol, Calc 21 mg/dL (0-100) 01/02/20 05:12 HDL Cholesterol 23 mg/dL (40-60) L 01/02/20 05:12 Cholesterol/HDL Ratio 2.4 (0.0-5.0) 01/02/20 05:12 Amylase 66 Units/L (25-115) 12/31/19 23:36 Lipase 531 Units/L (73-393) H 12/31/19 23:36 - Plan (1) Acute CVA (cerebrovascular accident) Status: Acute Plan: NS AT 80 ML/HR, INVANZ 1G IV DAILY, THE POTASSIUM AND MAGNESIUM PROTOCOLS, AND ZOFRAN 4MG IV Q6H PRN. SPEECH EVALUATION, PT/OT (2) Dehydration Status: Acute Plan: NS AT 80 ML/HR, INVANZ 1G IV DAILY, THE POTASSIUM AND MAGNESIUM PROTOCOLS, AND ZOFRAN 4MG IV Q6H PRN. (3) Weakness generalized Status: Acute (4) Failure to thrive Status: Acute Qualifiers: Failure to thrive age range: in adult Qualified Code(s): R62.7 - Adult failure to thrive (5) E. 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
[2020-01-06 06:53] LABS: PREALBUMIN 10.5 mg/dL (18-35.7)
[2020-01-06 06:56] LABS: ALANINE AMINOTRANSFERASE 10 Units/L (12-78); ALBUMIN 3.4 g/dL (3.4-5.0); ALKALINE PHOSPHATASE 40 Units/L (46-116); ASPARTATE AMINO TRANSFERASE 19 Units/L (15-37); BLOOD UREA NITROGEN 15 mg/dL (7-18); CALCIUM 9.1 mg/dL (8.5-10.1); CARBON DIOXIDE 27.5 mmol/L (21-32); CHLORIDE 106 mmol/L (98-107); CREATININE 0.95 mg/dL (0.55-1.02); SODIUM 139 mmol/L (136-145); TOTAL PROTEIN 5.9 g/dL (6.4-8.2); eGFR NON BLACK RACES > 60 (>60)
[2020-01-06 08:05] LABS: EOSINOPHILS # (AUTO) 0.1 x10^3/uL (0.0-0.2); EOSINOPHILS % (AUTO) 1.5 % (0.9-2.9); HEMATOCRIT 23.3 % (36.0-47.0); HEMOGLOBIN 7.8 g/dL (12.0-16.0); LYMPHOCYTES # (AUTO) 0.9 X10^3/uL (1.3-2.9); LYMPHOCYTES % (AUTO) 22.5 % (21.0-51.0); MEAN CORPUSCULAR HEMOGLOBIN 37.9 pg (27.0-34.0); MEAN CORPUSCULAR HGB CONC 33.4 g/dL (33.0-35.0); MEAN CORPUSCULAR VOLUME 113.5 fL (80.0-100.0); MEAN PLATELET VOLUME 12.1 fL (7.4-11.0); MONOCYTES # (AUTO) 0.3 x10^3/uL (0.3-0.8); MONOCYTES % (AUTO) 7.2 % (0.0-13.0); NEUTROPHILS # (AUTO) 2.8 x10^3/uL (2.2-4.8); NEUTROPHILS % (AUTO) 67.8 % (42.0-75.0); PLATELET COUNT 105 X10^3/uL (150.0-450.0); RED BLOOD COUNT 2.06 X10^6/uL (3.5-5.4); RED CELL DISTRIBUTION WIDTH 14.1 % (11.6-16.5); WHITE BLOOD COUNT 4.1 X10^3/uL (3.6-10.0)
[2020-01-06 08:24] LABS: PLATELET MORPHOLOGY COMMENT NORMAL (NORMAL)
[2020-01-06] MEDS ORDERED: BUTT CREAM (COMPOUND) ONE (08:56)
[2020-01-06] MEDS: ALBUMIN HUMAN 25%- 100 ML 100 ML IV SCH (09:32)
[2020-01-06] MEDS: LOVENOX INJ 40 MG SYR SC SCH (09:33)
[2020-01-06] MEDS: NS 1000 ML 1,000 ML IV SCH (09:34)
[2020-01-06] MEDS: CLINIMIX 4.25 %/10 % 1,000 ML with MVI INJ (ADULT) 10 ML, TPN ELECTROLYTES 20 ML IV SCH ×3 (10:11)
[2020-01-06] MEDS ORDERED: HALDOL INJ IVP PRN (10:48)
[2020-01-06] MEDS ORDERED: OFIRMEV IV 1000 MG VIAL 500 MG/50 ML VIAL IV PRN (21:14)
[2020-01-06] MEDS ORDERED: OFIRMEV IV 1000 MG VIAL 1,000 MG/100 ML VIAL IV ONE (21:16)
--- NOTE | 2020-01-06 21:27 | PCM.PROG ---
Progress Note - Progress Note for Day of Date of Exam: 01/06/20 - Subjective Subjective: IS BEING TREATED FOR ACUTE CVA, DEHYDRATION, GENERALIZED WEAKNESS, FAILURE TO THRIVE, ANEMIA, AND E.COLI URINARY TRACT INFECTION. TODAY, SHE IS LYING IN BED WITH EYES CLOSED ON MORNING ROUNDS. SHE DOES OPEN EYES TO VERBAL STIMULI. SPEECH IS SLURRED. STAFF REPORTS THAT THEY CONTINUE TO HAVE DIFFICULTY GET HER TO TAKE HER MEDICATIONS OR EAT. SHE APPEARS TO GET STRANGLED ON FOODS. SHE CONTINUES WITH RIGHT SIDED WEAKNESS. ON EXAMINATION, HEART IS REGULAR IN RATE AND RHYTHM. BILATERAL LUNGS ARE NOTED WITH DIMINISHED LUNG SOUNDS THROUGHOUT. NORMAL BOWEL SOUNDS ARE NOTED IN ALL QUADRANTS. HER VITALS THIS MORNING ARE: 98.8-65-18-97%-141/63. LABS WERE OBTAINED. ABNORMAL LAB VALUES INCLUDE THE FOLLOWING: RBC 2.06, HGB 7.8, HCT 23.3, PLT COUNT 105, GLUCOSE 101, ALT 40, TOTAL PROTEIN 5.9. SHE IS CURRENTLY RECEIVING NS AT 40 ML/HR, TPN, ALBUMIN 25% IV DAILY, LOVENOX 40MG SC DAILY, HUMULIN R SLIDING SCALE, THE POTASSIUM AND MAGNESIUM PROTOCOLS, AND ZOFRAN 4MG IV Q6H PRN. PHYSICAL, OCCU PATIONAL, AND SPEECH THERAPIES ARE WORKING WITH PATIENT. WE ARE ARRANGING PLACEMENT FOR PHYSICAL THERAPY AND RAHAB DUE TO ACUTE CVA. TODAY, WE WILL CONSULT WITH FOR PLACEMENT OF A PEG TUBE. OTHERWISE, WE WILL FOLLOW UP WITH AM LABS AND CONTINUE TO MONITOR. - Past Medical Family Social History Past Med/Fam/Surg Hx: No changes since H&P Allergies: Allergies codeine Allergy (Verified 01/01/20 05:28) diphenhydramine [From Benadryl] Allergy (Verified 01/01/20 05:28) ibuprofen Allergy (Verified 01/01/20 05:28) morphine Allergy (Verified 01/01/20 05:28) Penicillins Allergy (Verified 01/01/20 05:28) promethazine [From Phenergan] Allergy (Verified 01/01/20 05:28) - Review of Systems ROS: No change since H&P - Vital Signs and I&O's Vital Signs: Temperature 97.8 F Pulse Rate [Left] 64 Pulse Rate 84 Respiratory Rate 18 Blood Pressure [Left Arm] 121/60 Blood Pressure 183/71 O2 Sat by Pulse Oximetry 98 Intake and Output: Intake & Output 01/04/20 01/05/20 01/06/20 01/07/20 11:59 11:59 11:59 11:59 Intake Total 1187 / 1187 2250 / 2250 640 / 640 0 / 0 Balance 1187 / 1187 2250 / 2250 640 / 640 0 / 0 - Physical Exam Oriented: Unable to test Eyes: Normal Ear: Normal Nose: Normal Throat: Normal Respiratory: Generalized, Diminished Cardiovascular: Normal : Normal Auscultation: Bowel Sounds: Normal Tenderness: Normal Skin: Decreased Turgur Musculoskeletal: Normal Psychiatric: Normal Mood Description: Flat Affect: Flat Speech Pattern: Unclear, Slurred - Laboratory and Diagnostics Result Diagrams: 01/06/20 05:15 01/06/20 05:15 Labs: Laboratory WBC 4.1 X10^3/uL (3.6-10.0) 01/06/20 05:15 RBC 2.06 X10^6/uL (3.5-5.4) L 01/06/20 05:15 Hgb 7.8 g/dL (12.0-16.0) L 01/06/20 05:15 Hct 23.3 % (36.0-47.0) L 01/06/20 05:15 MCV 113.5 fL (80.0-100.0) H 01/06/20 05:15 MCH 37.9 pg (27.0-34.0) H 01/06/20 05:15 MCHC 33.4 g/dL (33.0-35.0) 01/06/20 05:15 RDW 14.1 % (11.6-16.5) 01/06/20 05:15 Plt Count 105 X10^3/uL (150.0-450.0) L 01/06/20 05:15 Plt Count Comment Decreased (ADEQUATE) A 01/06/20 05:15 MPV 12.1 fL (7.4-11.0) H 01/06/20 05:15 Neut % (Auto) 67.8 % (42.0-75.0) 01/06/20 05:15 Lymph % (Auto) 22.5 % (21.0-51.0) 01/06/20 05:15 [place] % (Auto) 7.2 % (0.0-13.0) 01/06/20 05:15 Eos % (Auto) 1.5 % (0.9-2.9) 01/06/20 05:15 Baso % (Auto) 1.0 % (0.2-1.0) 01/06/20 05:15 Neut # (Auto) 2.8 x10^3/uL (2.2-4.8) 01/06/20 05:15 Lymph # (Auto) 0.9 X10^3/uL (1.3-2.9) L 01/06/20 05:15 [place] # (Auto) 0.3 x10^3/uL (0.3-0.8) 01/06/20 05:15 Eos # (Auto) 0.1 x10^3/uL (0.0-0.2) 01/06/20 05:15 Baso # (Auto) 0.0 X10^3/uL (0.0-0.1) 01/06/20 05:15 Absolute Nucleated RBC 0.2 /100WBC 01/06/20 05:15 Giant Platelets Rare 12/31/19 23:36 Plt Morphology Comment Normal (NORMAL) 01/06/20 05:15 RBC Morphology Abnormal (NORMAL) A 01/06/20 05:15 Macrocytosis 2+ A 01/06/20 05:15 PT 14.4 SECONDS (11.8-14.3) 12/31/19 23:36 INR Target Range - 12/31/19 23:36 INR 1.15 (0.8-1.3) 12/31/19 23:36 APTT 31.9 SECONDS (22.9-36.5) 12/31/19 23:36 PTT Comment - 12/31/19 23:36 Sodium 139 mmol/L (136-145) 01/06/20 05:15 Corrected Sodium TNP 01/06/20 05:15 Potassium 3.6 mmol/L (3.5-5.1) 01/06/20 05:15 Chloride 106 mmol/L (98-107) 01/06/20 05:15 Carbon Dioxide 27.5 mmol/L (21-32) 01/06/20 05:15 BUN 15 mg/dL (7-18) 01/06/20 05:15 Creatinine 0.95 mg/dL (0.55-1.02) 01/06/20 05:15 Est GFR (MDRD) Af Amer > 60 (>60) 01/06/20 05:15 Est GFR (MDRD) Non-Af > 60 (>60) 01/06/20 05:15 Glucose 101 mg/dL (65-99) H 01/06/20 05:15 POC Glucose (mg/dL) 77 mg/dL (65-99) 01/06/20 21:24 Calcium 9.1 mg/dL (8.5-10.1) 01/06/20 05:15 Corrected Calcium TNP 01/06/20 05:15 Phosphorus 1.1 mg/dL (2.6-4.7) L 01/05/20 14:00 Magnesium 1.8 mg/dL (1.7-2.9) 01/05/20 14:00 Total Bilirubin 0.60 mg/dL (0.2-1.0) 01/06/20 05:15 AST 19 Units/L (15-37) 01/06/20 05:15 ALT 10 Units/L (12-78) L 01/06/20 05:15 Alkaline Phosphatase 40 Units/L (46-116) L 01/06/20 05:15 Creatine Kinase 15 Units/L (26-192) L 01/01/20 23:21 CK-MB (CK-2) < 1.0 ng/mL (0-4.0) 01/01/20 23:21 CK/CKMB % Calc 6.7 % (<4) 01/01/20 23:21 Troponin I 0.25 ng/mL (0-1.5) 01/01/20 23:21 Total Protein 5.9 g/dL (6.4-8.2) L 01/06/20 05:15 Albumin 3.4 g/dL (3.4-5.0) 01/06/20 05:15 Globulin 2.5 g/dL (2.5-4.5) 01/06/20 05:15 Albumin/Globulin Ratio 1.4 Ratio (1.1-2.1) 01/06/20 05:15 Prealbumin 10.5 mg/dL (18-35.7) L 01/06/20 05:15 Triglycerides 48 mg/dL (0-150) 01/05/20 14:00 Cholesterol 56 mg/dL (0-200) 01/02/20 05:12 LDL Cholesterol, Calc 21 mg/dL (0-100) 01/02/20 05:12 HDL Cholesterol 23 mg/dL (40-60) L 01/02/20 05:12 Cholesterol/HDL Ratio 2.4 (0.0-5.0) 01/02/20 05:12 Amylase 66 Units/L (25-115) 12/31/19 23:36 Lipase 531 Units/L (73-393) H 12/31/19 23:36 - Plan (1) Acute CVA (cerebrovascular accident) Status: Acute Plan: NS AT 80 ML/HR, INVANZ 1G IV DAILY, THE POTASSIUM AND MAGNESIUM PROTOCOLS, AND ZOFRAN 4MG IV Q6H PRN. SPEECH EVALUATION, PT/OT (2) Dehydration Status: Acute Plan: NS AT 80 ML/HR, INVANZ 1G IV DAILY, THE POTASSIUM AND MAGNESIUM PROTOCOLS, AND ZOFRAN 4MG IV Q6H PRN. (3) Weakness generalized Status: Acute (4) Failure to thrive Status: Acute Qualifiers: Failure to thrive age range: in adult Qualified Code(s): R62.7 - Adult failure to thrive (5) E. 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
[2020-01-07 06:31] LABS: BASOPHILS % (AUTO) 1.1 % (0.2-1.0); EOSINOPHILS # (AUTO) 0.1 x10^3/uL (0.0-0.2); EOSINOPHILS % (AUTO) 1.9 % (0.9-2.9); HEMATOCRIT 22.7 % (36.0-47.0); HEMOGLOBIN 7.9 g/dL (12.0-16.0); LYMPHOCYTES % (AUTO) 32.9 % (21.0-51.0); MEAN CORPUSCULAR HEMOGLOBIN 38.6 pg (27.0-34.0); MEAN CORPUSCULAR HGB CONC 34.8 g/dL (33.0-35.0); MEAN CORPUSCULAR VOLUME 110.9 fL (80.0-100.0); MEAN PLATELET VOLUME 11.3 fL (7.4-11.0); MONOCYTES # (AUTO) 0.3 x10^3/uL (0.3-0.8); MONOCYTES % (AUTO) 8.1 % (0.0-13.0); NEUTROPHILS # (AUTO) 1.7 x10^3/uL (2.2-4.8); PLATELET COUNT 98 X10^3/uL (150.0-450.0); RED BLOOD COUNT 2.05 X10^6/uL (3.5-5.4); RED CELL DISTRIBUTION WIDTH 13.8 % (11.6-16.5); WHITE BLOOD COUNT 3.1 X10^3/uL (3.6-10.0)
[2020-01-07 06:49] LABS: ALANINE AMINOTRANSFERASE 8 Units/L (12-78); ALBUMIN 3.4 g/dL (3.4-5.0); ALKALINE PHOSPHATASE 43 Units/L (46-116); ASPARTATE AMINO TRANSFERASE 15 Units/L (15-37); BLOOD UREA NITROGEN 15 mg/dL (7-18); CALCIUM 8.8 mg/dL (8.5-10.1); CARBON DIOXIDE 24.9 mmol/L (21-32); CHLORIDE 105 mmol/L (98-107); CREATININE 0.88 mg/dL (0.55-1.02); SODIUM 137 mmol/L (136-145); TOTAL PROTEIN 5.7 g/dL (6.4-8.2); eGFR NON BLACK RACES > 60 (>60)
[2020-01-07 07:15] LABS: HYPOCHROMASIA SLIGHT; PLATELET MORPHOLOGY COMMENT NORMAL (NORMAL)
[2020-01-07] MEDS: MVI IV SCH ×4 (10:25)
[2020-01-07] MEDS: [UNRECOGNIZED DRUG - OTHER] IV SCH ×4 (10:25)
[2020-01-07] MEDS: CLINIMIX IV SCH ×4 (10:25)
[2020-01-07] MEDS: TPN ELECTROLYTES IV SCH ×4 (10:25)
[2020-01-07] MEDS: ALBUMIN HUMAN 25%- 100 ML 100 ML IV SCH (10:26)
[2020-01-07] MEDS: NS 1000 ML 1,000 ML IV SCH (10:26)
[2020-01-07] MEDS ORDERED: XANAX PO PRN (10:55)
[2020-01-07] MEDS ORDERED: TYLENOL 325 MG TAB PO PRN (11:50)
[2020-01-07] MEDS ORDERED: TYLENOL 325 MG TAB PO ONE (11:52)
[2020-01-07] MEDS ORDERED: COREG TAB 12.5 MG PO ONE (19:53)
[2020-01-07] MEDS ORDERED: CRESTOR TAB 10 MG PO ONE (19:53)
[2020-01-07] MEDS: ECOTRIN TAB 325 MG PO SCH (20:37)
[2020-01-07] MEDS: COREG TAB 12.5 MG PO SCH (20:38)
[2020-01-07] MEDS: PLAVIX PO SCH (20:38)
[2020-01-07] MEDS ORDERED: CRESTOR TAB 10 MG PO SCH (21:00)
[2020-01-08 06:43] LABS: BASOPHILS # (AUTO) 0.1 X10^3/uL (0.0-0.1); EOSINOPHILS # (AUTO) 0.1 x10^3/uL (0.0-0.2); EOSINOPHILS % (AUTO) 1.8 % (0.9-2.9); HEMATOCRIT 25.5 % (36.0-47.0); HEMOGLOBIN 8.9 g/dL (12.0-16.0); LYMPHOCYTES % (AUTO) 22.7 % (21.0-51.0); MEAN CORPUSCULAR HEMOGLOBIN 38.9 pg (27.0-34.0); MEAN CORPUSCULAR HGB CONC 34.8 g/dL (33.0-35.0); MEAN CORPUSCULAR VOLUME 111.7 fL (80.0-100.0); MEAN PLATELET VOLUME 11.8 fL (7.4-11.0); MONOCYTES # (AUTO) 0.3 x10^3/uL (0.3-0.8); MONOCYTES % (AUTO) 7.5 % (0.0-13.0); NEUTROPHILS # (AUTO) 2.8 x10^3/uL (2.2-4.8); PLATELET COUNT 119 X10^3/uL (150.0-450.0); RED BLOOD COUNT 2.29 X10^6/uL (3.5-5.4); RED CELL DISTRIBUTION WIDTH 13.9 % (11.6-16.5); WHITE BLOOD COUNT 4.3 X10^3/uL (3.6-10.0)
[2020-01-08 07:01] LABS: ALANINE AMINOTRANSFERASE 11 Units/L (12-78); ALBUMIN 3.7 g/dL (3.4-5.0); ALKALINE PHOSPHATASE 49 Units/L (46-116); ASPARTATE AMINO TRANSFERASE 15 Units/L (15-37); BLOOD UREA NITROGEN 13 mg/dL (7-18); CALCIUM 8.9 mg/dL (8.5-10.1); CARBON DIOXIDE 25.6 mmol/L (21-32); CHLORIDE 105 mmol/L (98-107); COR NA(FOR HYPERGLY) 139 mmol/L (136-145); CREATININE 0.93 mg/dL (0.55-1.02); PLATELET MORPHOLOGY COMMENT NORMAL (NORMAL); SODIUM 138 mmol/L (136-145); TOTAL PROTEIN 6.2 g/dL (6.4-8.2); eGFR NON BLACK RACES > 60 (>60)
[2020-01-08] MEDS ORDERED: MILK OF MAGNESIA PO SCH (09:00)
[2020-01-08] MEDS: ALBUMIN HUMAN 25%- 100 ML 100 ML IV SCH (09:52)
[2020-01-08] MEDS: ECOTRIN TAB 325 MG PO SCH (09:53)
[2020-01-08] MEDS: COREG TAB 12.5 MG PO SCH ×2 (09:53)
[2020-01-08] MEDS: PLAVIX PO SCH (09:55)
[2020-01-08] MEDS ORDERED: ZOFRAN INJ 4 MG VIAL IVP PRN (10:28)
[2020-01-08] MEDS ORDERED: ZOFRAN INJ 4 MG VIAL ONE (10:31)
--- NOTE | 2020-01-08 12:43 | RAD ---
HISTORYCoughSTUDYAP chest two [id number] to mild cardiomegaly. No segmental or lobar consolidation is seen. There is a diffuse interstitial prominence in the lungs especially the lower lobes. The hil ar structures are symmetric. No pleural fluid is demonstrated.IMPRESSIONAlthough the described promin ence of the interstitial pulmonary pattern may be chronic, the finding has apparently increased since 12/31/2019 and therefore may represent an acute inflammatory process. Correlate clinically with foll ow-up.Electronically signed by: FARZANEH MCCARTHY (Jan 08, 2020 12:42:01)
[2020-01-08] MEDS ORDERED: CATAPRES-TTS-1 TD SCH (13:00)
--- NOTE | 2020-01-08 13:10 | CT ---
HISTORYPT BLEEDING FROM LFT EYE. PT HAD RECENT MRISTUDYBRAIN W/O CONCOMPARISONMR brain dated 01/03/2020. CT brain dated 12/29/2019.TECHNIQUEMultiple axial images of the brain were obtained from the skull base to the vertex without administration of IV contrast. Dose reduction techniques including Automated Exposure Control (AEC) and adjustment of mA and kV were utilized.FINDINGSThe included portions of the left and right globe are grossly unremarkable. There are expected evolutionary changes of the previously noted temporoparietal infarct on the left without evidence of intercurrent hemorrhage. Similar findings are present within the region of the previously noted cerebellar infarct on the left without associated hemorrhage. There are scattered and confluent areas of periventricular, deep and subcortical white matter hypoattenuation bilaterally which can be seen in the setting of chronic small vessel disease. There is ventricular, as well as, cisternal and sulcal prominence, in addition to, atherosclerotic changes of the proximal intracranial carotid arteries bilaterally. No acute intraparenchymal hemorrhage or mass can be identified. No extra-axial fluid collections are seen. Mucosal changes of the maxillary sinuses is noted bilaterally. The extracranial structures are grossly unremarkable.IMPRESSION1. Expected evolutionary changes of the known infarcts involving the left temporoparietal region and left cerebellum without evidence of intercurrent hemorrhage.2. Nonspecific white matter changes which can be seen in the setting of chronic small vessel disease.3. Bilateral maxillary sinus disease.Electronically signed by: GUCCI AGUILAR (Jan 08, 2020 13:09:46)
[2020-01-08] MEDS ORDERED: CEREBYX INJ 1,000 MG in NS 50 ML IV 50 ML IV SCH (13:43)
[2020-01-08 13:45] LABS: BASOPHILS % (AUTO) 0.4 % (0.2-1.0); EOSINOPHILS % (AUTO) 0.5 % (0.9-2.9); HEMATOCRIT 24.2 % (36.0-47.0); HEMOGLOBIN 8.4 g/dL (12.0-16.0); LYMPHOCYTES # (AUTO) 0.7 X10^3/uL (1.3-2.9); LYMPHOCYTES % (AUTO) 15.4 % (21.0-51.0); MEAN CORPUSCULAR HEMOGLOBIN 39.2 pg (27.0-34.0); MEAN CORPUSCULAR HGB CONC 34.6 g/dL (33.0-35.0); MEAN CORPUSCULAR VOLUME 113.4 fL (80.0-100.0); MEAN PLATELET VOLUME 12.2 fL (7.4-11.0); MONOCYTES # (AUTO) 0.3 x10^3/uL (0.3-0.8); MONOCYTES % (AUTO) 5.3 % (0.0-13.0); NEUTROPHILS # (AUTO) 3.8 x10^3/uL (2.2-4.8); NEUTROPHILS % (AUTO) 78.4 % (42.0-75.0); PLATELET COUNT 115 X10^3/uL (150.0-450.0); RED BLOOD COUNT 2.14 X10^6/uL (3.5-5.4); RED CELL DISTRIBUTION WIDTH 14.2 % (11.6-16.5); WHITE BLOOD COUNT 4.8 X10^3/uL (3.6-10.0)
[2020-01-08] MEDS ORDERED: CEREBYX INJ ONE (13:49)
[2020-01-08] MEDS ORDERED: NS 100 ML IV 100 ML IV ONE (13:49)
[2020-01-08 13:54] LABS: ALANINE AMINOTRANSFERASE 11 Units/L (12-78); ALBUMIN 4.4 g/dL (3.4-5.0); ALKALINE PHOSPHATASE 50 Units/L (46-116); ASPARTATE AMINO TRANSFERASE 15 Units/L (15-37); BLOOD UREA NITROGEN 15 mg/dL (7-18); CALCIUM 9.3 mg/dL (8.5-10.1); CARBON DIOXIDE 26.4 mmol/L (21-32); CHLORIDE 103 mmol/L (98-107); COR NA(FOR HYPERGLY) 137 mmol/L (136-145); CREATININE 1.02 mg/dL (0.55-1.02); SODIUM 137 mmol/L (136-145); TOTAL PROTEIN 6.7 g/dL (6.4-8.2); eGFR NON BLACK RACES 56 (>60)
[2020-01-08 13:59] LABS: LACTIC ACID 1.4 mmol/L (0.4-2.0)
[2020-01-08 14:02] LABS: BILIRUBIN,URINE NEGATIVE (NEGATIVE); BLOOD/HEMOGLOBIN,URINE NEGATIVE (NEGATIVE); GLUCOSE, URINE NEGATIVE (NEGATIVE); KETONES,URINE NEGATIVE (NEGATIVE); LEUKOCYTE ESTERASE ,URINE NEGATIVE (NEGATIVE); NITRITES,URINE NEGATIVE (NEGATIVE); PROTEIN,URINE NEGATIVE (NEGATIVE); UROBILINOGEN,URINE NORMAL (NORMAL)
[2020-01-08 14:03] LABS: PLATELET MORPHOLOGY COMMENT NORMAL (NORMAL)
[2020-01-08 14:04] LABS: HYPOCHROMASIA 1+; PHOSPHORUS 1.6 mg/dL (2.6-4.7); POIKILOCYTOSIS 1+
[2020-01-08 14:05] LABS: CKMB % 3.7 % (<4); CREATINE KINASE 27 Units/L (26-192); CREATINE KINASE MB < 1.0 ng/mL (0-4.0); TROPONIN I 0.05 ng/mL (0-1.5)
[2020-01-08 14:07] LABS: APPEARANCE,URINE CLEAR (CLEAR); COLOR,URINE YELLOW (YELLOW)
[2020-01-08] MEDS: MVI IV SCH ×4 (16:00)
[2020-01-08] MEDS: [UNRECOGNIZED DRUG - OTHER] IV SCH ×4 (16:00)
[2020-01-08] MEDS: CLINIMIX IV SCH ×4 (16:00)
[2020-01-08] MEDS: TPN ELECTROLYTES IV SCH ×4 (16:00)
[2020-01-08] MEDS: NS 1000 ML 1,000 ML IV SCH (17:14)
[2020-01-08] MEDS ORDERED: COLACE CAP 100 MG PO SCH (21:00)
[2020-01-08] MEDS ORDERED: DEPAKOTE SPRINKLE PO SCH (21:00)
[2020-01-09 07:26] VITALS: BP 129/58
--- NOTE | 2020-02-09 13:06 | PCM.PROG ---
Progress Note - Progress Note for Day of Date of Exam: 01/07/20 - Subjective Subjective: IS BEING TREATED FOR ACUTE CVA, DEHYDRATION, GENERALIZED WEAKNESS, FAILURE TO THRIVE, ANEMIA, AND E.COLI URINARY TRACT INFECTION. TODAY, SHE IS ALERT, SITTING UP IN BED ON MORNING ROUNDS. SHE DOES CONTINUE WITH SLURRED SPEECH. PATIENTS ALONDRA STATES THAT SHE GAVE HER SOMETHING TO DRINK EARLIER AND THAT SHE TOLERATED WELL. SPEECH THERAPY CONSULTED WITH PATIENT AND RECOMMENDS A SOFT DIET WITH THICKENED LIQUIDS. PATIENTS ALONDRA WAS EDUCATED. PATIENT DOES CONTINUES WITH RIGHT SIDED WEAKNESS TODAY. STAFF ALSO REPORTS THAT SHE CONTINUES WITH AGITATION AT TIMES. ON EXAMINATION, HEART IS REGULAR IN RATE AND RHYTHM. BILATERAL LUNGS ARE NOTED WITH DIMINISHED LUNG SOUNDS THROUGHOUT. NORMAL BOWEL SOUNDS ARE NOTED IN ALL QUADRANTS. HER VITALS THIS MORNING ARE: 97.6-60-18-96%RA-176/86. LABS WERE OBTAINED. ABNORMAL LAB VALUES INCLUDE THE FOLLOWING: WBC 3.1, RBC 2.05, HGB 7.9, HCT 22.7, PLT COUNT 98, POTASSIUM 3.4, GLUCOSE 102, ALT 8, ALK PHOS 43, TOTAL PROTEIN 5.7. SHE IS CURRENTLY RECEIVING NS AT 40 ML/HR, TPN, ALBUMIN 25% IV DAILY, LOVENOX 40MG SC DAILY, HUMULIN R SLIDING SCALE, THE POTASSIUM AND MAGNESIUM PROTOCOLS, AND ZOFRAN 4MG IV Q6H PRN. PHYSICAL, OCCUPATIONAL, AND SPEECH THERAPIES ARE WORKING WITH PATIENT THROUGHOUT THE DAY. WE ARE ARRANGING PLACEMENT FOR PHYSICAL THERAPY AND RAHAB DUE TO ACUTE CVA. TODAY, WE WILL ADD ASPIRIN 325MG PO DAILY, PLAVIX 75MG PO DAILY, AND ROSUVASTATIN 20MG PO HS. WE WILL RESUME SOME OF HER ORAL MEDICATIONS TODAY. OTHERWISE, WE WILL FOLLOW UP WITH AM LABS AND CONTINUE TO MONITOR. - Past Medical Family Social History Past Med/Fam/Surg Hx: No changes since H&P Allergies: Allergies codeine Allergy (Verified 01/01/20 05:28) diphenhydramine [From Benadryl] Allergy (Verified 01/01/20 05:28) ibuprofen Allergy (Verified 01/01/20 05:28) morphine Allergy (Verified 01/01/20 05:28) Penicillins Allergy (Verified 01/01/20 05:28) promethazine [From Phenergan] Allergy (Verified 01/01/20 05:28) - Review of Systems ROS: No change since H&P - Vital Signs and I&O's Vital Signs: Temperature 98.2 F Pulse Rate [Left] 62 Pulse Rate 84 Respiratory Rate 20 Blood Pressure [Left Arm] 129/58 Blood Pressure 183/71 O2 Sat by Pulse Oximetry 100 - Physical Exam Oriented: Unable to test Eyes: Normal Ear: Normal Nose: Normal Throat: Normal Respiratory: Generalized, Diminished Cardiovascular: Normal : Normal Auscultation: Bowel Sounds: Normal Palpation: Normal Tenderness: Normal Skin: Decreased Turgur Musculoskeletal: Normal Psychiatric: Normal Mood Description: Flat Affect: Flat Speech Pattern: Unclear, Slurred - Laboratory and Diagnostics Result Diagrams: 01/08/20 13:25 01/08/20 13:25 Labs: 01/08/20 14: Blood Blood Culture - Final 01/08/20 13:25 Blood Blood Culture - Final Laboratory WBC 4.8 X10^3/uL (3.6-10.0) 01/08/20 13:25 RBC 2.14 X10^6/uL (3.5-5.4) L 01/08/20 13:25 Hgb 8.4 g/dL (12.0-16.0) L 01/08/20 13:25 Hct 24.2 % (36.0-47.0) L 01/08/20 13:25 MCV 113.4 fL (80.0-100.0) H 01/08/20 13:25 MCH 39.2 pg (27.0-34.0) H 01/08/20 13:25 MCHC 34.6 g/dL (33.0-35.0) 01/08/20 13:25 RDW 14.2 % (11.6-16.5) 01/08/20 13:25 Plt Count 115 X10^3/uL (150.0-450.0) L 01/08/20 13:25 Plt Count Comment Adequate (ADEQUATE) 01/08/20 13:25 MPV 12.2 fL (7.4-11.0) H 01/08/20 13:25 Neut % (Auto) 78.4 % (42.0-75.0) H 01/08/20 13:25 Lymph % (Auto) 15.4 % (21.0-51.0) L 01/08/20 13:25 [place] % (Auto) 5.3 % (0.0-13.0) 01/08/20 13:25 Eos % (Auto) 0.5 % (0.9-2.9) L 01/08/20 13:25 Baso % (Auto) 0.4 % (0.2-1.0) 01/08/20 13:25 Neut # (Auto) 3.8 x10^3/uL (2.2-4.8) 01/08/20 13:25 Lymph # (Auto) 0.7 X10^3/uL (1.3-2.9) L 01/08/20 13:25 [place] # (Auto) 0.3 x10^3/uL (0.3-0.8) 01/08/20 13:25 Eos # (Auto) 0.0 x10^3/uL (0.0-0.2) 01/08/20 13:25 Baso # (Auto) 0.0 X10^3/uL (0.0-0.1) 01/08/20 13:25 Absolute Nucleated RBC 0.1 /100WBC 01/08/20 13:25 Total Counted 100 01/07/20 05:13 Neutrophils % (Manual) 62 % (39-76) 01/07/20 05:13 Lymphocytes % (Manual) 32 % (13-43) 01/07/20 05:13 Monocytes % (Manual) 6 % (4-9) 01/07/20 05:13 Giant Platelets Rare 12/31/19 23:36 Plt Morphology Comment Normal (NORMAL) 01/08/20 13:25 RBC Morphology Abnormal (NORMAL) A 01/08/20 13:25 Hypochromasia 1+ A 01/08/20 13:25 Poikilocytosis 1+ A 01/08/20 13:25 Macrocytosis 2+ A 01/08/20 13:25 PT 14.6 SECONDS (11.8-14.3) 01/08/20 13:25 INR Target Range - 01/08/20 13:25 INR 1.17 (0.8-1.3) 01/08/20 13:25 APTT 31.9 SECONDS (22.9-36.5) 12/31/19 23:36 PTT Comment - 12/31/19 23:36 Sodium 137 mmol/L (136-145) 01/08/20 13:25 Corrected Sodium 137 mmol/L (136-145) 01/08/20 13:25 Potassium 4.3 mmol/L (3.5-5.1) 01/08/20 13:25 Chloride 103 mmol/L (98-107) 01/08/20 13:25 Carbon Dioxide 26.4 mmol/L (21-32) 01/08/20 13:25 BUN 15 mg/dL (7-18) 01/08/20 13:25 Creatinine 1.02 mg/dL (0.55-1.02) 01/08/20 13:25 Est GFR (MDRD) Af Amer > 60 (>60) 01/08/20 13:25 Est GFR (MDRD) Non-Af 56 (>60) L 01/08/20 13:25 Glucose 119 mg/dL (65-99) H 01/08/20 13:25 POC Glucose (mg/dL) 120 mg/dL (65-99) H 01/08/20 17:12 Lactic Acid 1.4 mmol/L (0.4-2.0) 01/08/20 13:25 Calcium 9.3 mg/dL (8.5-10.1) 01/08/20 13:25 Corrected Calcium TNP 01/08/20 13:25 Phosphorus 1.6 mg/dL (2.6-4.7) L 01/08/20 13:25 Magnesium 2.0 mg/dL (1.7-2.9) 01/08/20 13:25 Ferritin 208 ng/mL (8-252) 01/08/20 13:25 Total Bilirubin 0.90 mg/dL (0.2-1.0) 01/08/20 13:25 AST 15 Units/L (15-37) 01/08/20 13:25 ALT 11 Units/L (12-78) L 01/08/20 13:25 Alkaline Phosphatase 50 Units/L (46-116) 01/08/20 13:25 Creatine Kinase 27 Units/L (26-192) 01/08/20 13:25 CK-MB (CK-2) < 1.0 ng/mL (0-4.0) 01/08/20 13:25 CK/CKMB % Calc 3.7 % (<4) 01/08/20 13:25 Troponin I 0.05 ng/mL (0-1.5) 01/08/20 13:25 C-Reactive Protein 8.60 mg/L (0-3.0) H 01/08/20 13:25 Total Protein 6.7 g/dL (6.4-8.2) 01/08/20 13:25 Albumin 4.4 g/dL (3.4-5.0) 01/08/20 13:25 Globulin 2.3 g/dL (2.5-4.5) L 01/08/20 13:25 Albumin/Globulin Ratio 1.9 Ratio (1.1-2.1) 01/08/20 13:25 Prealbumin 10.5 mg/dL (18-35.7) L 01/06/20 05:15 Triglycerides 71 mg/dL (0-150) 01/08/20 13:25 Cholesterol 56 mg/dL (0-200) 01/02/20 05:12 LDL Cholesterol, Calc 21 mg/dL (0-100) 01/02/20 05:12 HDL Cholesterol 23 mg/dL (40-60) L 01/02/20 05:12 Cholesterol/HDL Ratio 2.4 (0.0-5.0) 01/02/20 05:12 Amylase 66 Units/L (25-115) 12/31/19 23:36 Lipase 531 Units/L (73-393) H 12/31/19 23:36 Specimen Type Catherized urine 01/08/20 13:45 Urine Color Yellow (YELLOW) 01/08/20 13:45 Urine Appearance Clear (CLEAR) 01/08/20 13:45 Urine pH 6.0 (5.0 - 8.0) 01/08/20 13:45 Ur Specific [place] 1.015 (1.000-1.030) 01/08/20 13:45 Urine Protein Negative (NEGATIVE) 01/08/20 13:45 Urine Glucose (UA) Negative (NEGATIVE) 01/08/20 13:45 Urine Ketones Negative (NEGATIVE) 01/08/20 13:45 Urine Occult Blood Negative (NEGATIVE) 01/08/20 13:45 Urine Nitrite Negative (NEGATIVE) 01/08/20 13:45 Urine Bilirubin Negative (NEGATIVE) 01/08/20 13:45 Urine Urobilinogen Normal (NORMAL) 01/08/20 13:45 Ur Leukocyte Esterase Negative (NEGATIVE) 01/08/20 13:45 SARS-CoV-2 (PCR) Negative (NEGATIVE) 01/08/20 14:09 - Plan (1) Acute CVA (cerebrovascular accident) Status: Acute Plan: NS AT 80 ML/HR, ASPIRIN 325MG PO DAILY, PLAVIX 75MG PO DAILY, ROSUVASTATIN 20MG PO HS, INVANZ 1G IV DAILY, THE POTASSIUM AND MAGNESIUM PROTOCOLS, AND ZO OPAL 4MG IV Q6H PRN. SPEECH EVALUATION, PT/OT (2) Dehydration Status: Acute (3) Weakness generalized Status: Acute (4) Failure to thrive Status: Acute Qualifiers: Failure to thrive age range: in adult Qualified Code(s): R62.7 - Adult failure to thrive (5) E. 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
== END 2020-01-08 19:30 | disposition short-term general hospital (02) | DRG 65 ==
LOC: MED/SURG 22:00 → ER 22:00 → OBSVTOIN 01-01 11:28 → MED/SURG 01-01 14:47
PROVIDERS: ADMIT Obstetrics & Gynecology Obstetrics; ATTEND Internal Medicine
DX: K86.1 Other chronic pancreatitis; R53.1 Weakness; D68.9 Coagulation defect, unspecified; R41.0 Disorientation, unspecified; R94.39 Abnormal result of other cardiovascular function study; N39.0 Urinary tract infection, site not specified; D50.9 Iron deficiency anemia, unspecified; B96.20 Unspecified Escherichia coli [E. coli] as the cause of diseases classified elsewhere; D69.6 Thrombocytopenia, unspecified; Z11.59 Encounter for screening for other viral diseases; R13.19 Other dysphagia; R26.0 Ataxic gait; R62.7 Adult failure to thrive; E86.0 Dehydration; I63.9 Cerebral infarction, unspecified